=== PATIENT | male | born 1940 | race Caucasian/White ===

== ENCOUNTER 2024-11-26 13:36 | Outpatient (CLI) | payer MEDICARE, SELFPAY ==
--- OUTSIDE RECORDS SUMMARY | 2024-11-26 14:08 | XMS_ITS | Encounter Summary ---
Author Organization [facility] Address [address] [email or web address] [address] Phone Care Team Providers Care Almond Sorter Name Role Phone Abel Lauren MD Unavailable [phone] Raj Regalado MD Unavailable [phone] Brent King MD Primary Care Provider [phone] Libertad Neal MD Unavailable [phone] Hermann Sauceda MD Unavailable Carlie Torres MD Unavailable [phone] Franco Melendez MD Unavailable [phone] Mtiul Gilliam MD Unavailable [phone] Erik Charles MD Unavailable [phone] Encounter Details Date Type Department Care Team (Late st Contact Info) Description 11/17/2022 Orders Only [facility] [address] [place] [address] Scanning, Provider Social History Tobacco Use Types Packs/Day Years Used Date Smoking Tobacco: Former Cigarettes 0.3 30 1 935 - 1965 Cigars Smokeless Tobacco: Never Alcohol Use Standard Drinks/Week Comments No 0 (1 standard drink = 0.6 oz pur e alcohol) Social Connection and Isolat ion Panel [NHANES] Answer Date Recorded In a typical week, how many times do you talk on the phone with family, friends, or neighbors? More than three times a week 08/16/2022 How often do you get togethe r with friends or relatives? More than three times a week 08/16/2022 How often do you attend chur ch or hoahaoism services? Never 08/16/2022 Do you belong to any clubs o r organizations such as jehovah's witness groups, unions, fraternal or athletic groups, or school groups? No 08/16/2022 How often do you attend meet ings of the clubs or organizations you belong to? Never 08/16/2022 Are you , , di vorced, , never , or living with a partner? 08/16/2022 AUDIT-C Answer Date Recorded Q1: How often do you have a drink containing alcohol? Never 08/15/2022 Q2: How many drinks containi ng alcohol do you have on a typical day when you are drinking? Patient does not drink Q3: How often do you have si x or more drinks on one occasion? Never 08/15/2022 Overall Financial Resource Strain (CARDIA) Answe r Date Recorded How hard is it for you to pa y for the very basics like food, housing, medical care, and heating? Not very hard 08/16/2022 PHQ-2 Answer Date Recorded PHQ-2 Total Score (If total score is 3 or more points, staff should administer the PHQ-9) 0 04/24/2022 PRAPARE - Transportation Answer Date Re corded In the past 12 months, has l ack of transportation kept you from medical appointments or from getting medications? No 07/20 In the past 12 months, has l ack of transportation kept you from meetings, work, or from getting things needed for daily living? No 08/16/2022 Personal Safety Answer Date Recorded Have you ever been in or are you currently in a harmful physical or emotional relationship or is someone making you feel afraid or unsafe? Denies 08/15/2022 Sex and Gender Information Value Date Recorded Sex Assigned at Not on file Legal Sex Male 11:17 AM FUNDING SPECIALIST Gender Identity Not on file Sexual Orientation Not on file documented as of this encounter Plan of Treatment Not on file documented as of this encounter Procedures Procedure Name Priority Date/Time Associated Diagnosis Comments SCAN - LABS 11/17/2022 documented in this encounter Results * SCAN - LABS (11/17/2022) Provider Scanning Final Result documented in this encounter Visit Diagnoses Not on filedocumented in this encounter Care Teams Almond Sorter Relationship Specialty Start Date End Date Brent King MD [address] [facility] [address] [place] [address] PCP - General Infectious Diseases 07/20/17 Abel Lauren MD [address] [place], [place] [address] Consulting Physician Endocrinology Diabetes & Metabolism 01/20/17 Raj Regalado MD [address] [place], [place] [address] Consulting Physician Vascular Surgery 04/07/17 Libertad Neal MD [address] [facility] [address], [place] [address] Consulting Physician Nephrology 10/03/19 Hermann Sauceda MD [address] [facility] [address] [place], [place] [address] Consulting Physician Ophthalmology 04/07/20 Carlie Torres MD [address] [place] [address] [address]mel [facility] [address] [place], [place] [address] Referring Physician Preventative Medicine 09/29/20 Franco Melendez MD [address] [facility] [address] [place], [place] [address] Consulting Physician Orthopedic Surgery 08/25/21 Mitul Gilliam MD [address] [place] [address] Consulting Physician Ophthalmology 10/17/21 Erik Chalres MD [address] [facility] [address] [place] [address] Consulting Physician Podiatry 04/26/23 documented as of this encounter
--- OUTSIDE RECORDS SUMMARY | 2024-11-26 14:08 | XMS_ITS | Encounter Summary ---
Author Organization [facility] Address [address] [place] [address] Phone Care Team Providers Care Certified Medication Aide Name Role Phone Abel Lauren MD Unavailable [phone] Hermann [place] MD Unavailable [phone] Raj Regalado MD Unavailable [phone] Hermann Sauceda MD Primary Care Provider Franco Melendez MD Unavailable [phone] Brent King MD Primary Care Provider [phone] Libertad Neal MD Unavailable [phone] Hermann Sauceda MD Unavailable [phone] Carlie Torres MD Unavailable [phone] Franco Melendez MD Unavailable [phone] Mitul Gilliam MD Unavailable [phone] Libertad Neal MD Unavailable [phone] Erik Charles MD Unavailable [phone] Encounter Details Date Type Department Care Team (Late st Contact Info) Description 07/17/2017 Orders Only [facility] [address] [place] [address] Brent King MD [address] [place] [address] Social History Tobacco Use Types Packs/Day Years Used Date Smoking Tobacco: Former Smokeless Tobacco: Never Alcohol Use Standard Drinks/Week Comments No 0 (1 standard drink = 0.6 oz pur e alcohol) Sex and Gender Information Value Date Recorded Sex Assigned at Not on file Legal Sex Male 11:17 AM CRAFT MANAGER Gender Identity Not on file Sexual Orientation Not on file documented as of this encounter Plan of Treatment Not on file documented as of this encounter Procedures Procedure Name Priority Date/Time Associated Diagnosis Comments SCAN - LABS 07/17/2017 10:43 AM CRAFT MANAGER documented in this encounter Results * SCAN - LABS (07/17/2017 10:43 AM CRAFT MANAGER) Brent King MD Final Result documented in this encounter Visit Diagnoses Not on filedocumented in this encounter Additional Health Concerns Infection Onset Date Last Indicated Resolved Time COVID: Suspected 08/14/2022 08/14/2022 08/14/2022 8:58 PM CDT COVID19 08/14/2022 08/14/2022 08/17/2022 2:13 PM CDT COVID: Recovered 08/17/2022 08/17/2022 11/15/2022 3:05 AM CDT documented as of this encounter Care Teams Certified Medication Aide Relationship Specialty Start Date End Date Hermann Sauceda MD [address] [place] [address] PCP - General Ophthalmology 03/21/17 07/19/17 Brent King MD [address] [place] [address] PCP - General Infectious Diseases 07/20/17 Abel Lauren MD [address] [place] [address] Consulting Physician Endocrinology Diabetes & Metabolism 01/20/17 Hermann [place] MD [address] [place] [address] Consulting Physician Nephrology 04/07/17 08/24/21 Raj Regalado MD [address] [place] [address] Consulting Physician Vascular Surgery 04/07/17 Franco Melendez MD [address] [place] [address] Consulting Physician Orthopedic Surgery 08/04/15 2 Libertad Neal MD [address] [facility] [address] [place] [address] Consulting Physician Nephrology 10/03/19 Hermann Sauceda MD [address] [place] [address] Consulting Physician Ophthalmology 04/07/20 Carlie Torres MD [address] [place] [address] [address] [place] [address] Referring Physician Preventative Medicine 09/29/20 Franco Melendez MD [address] [facility] [address] [place] [address] Consulting Physician Orthopedic Surgery 08/25/21 Mitul Gilliam MD [address] [facility] [address] [place] [address] Consulting Physician Ophthalmology 10/17/21 Libertad Neal MD [address] [facility] [address] [place] [address] Consulting Physician Nephrology 10/21/21 10/21/21 Erik Charles MD [address] [facility] [address] [place] [address] Consulting Physician Podiatry 04/26/23 documented as of this encounter
--- OUTSIDE RECORDS SUMMARY | 2024-11-26 14:08 | XMS_ITS | Encounter Summary ---
Author Organization [facility] Address [address] [place] [address] Phone Care Team Providers Care Contact Lens Flashing Puncher Name Role Phone Abel Lauren MD Unavailable [phone] Hermann [place] MD Unavailable [phone] Raj Regalado MD Unavailable [phone] Hermann Sauceda MD Primary Care Provider Franco Melendez MD Unavailable [phone] Brent King MD Primary Care Provider [phone] Libertad Neal MD Unavailable [phone] Hermann Sauceda MD Unavailable [phone] Carlie Torres MD Unavailable [phone] Franco Melendez MD Unavailable [phone] Mitul Gilliam MD Unavailable [phone] Libertad Neal MD Unavailable [phone] Erik Charles MD Unavailable [phone] Encounter Details Date Type Department Care Team (Late st Contact Info) Description 04/03/2017 Orders Only [facility] [address] [place] [address] Brent King MD [address] [place] [address] Social History Tobacco Use Types Packs/Day Years Used Date Smoking Tobacco: Former Smokeless Tobacco: Never Alcohol Use Standard Drinks/Week Comments No 0 (1 standard drink = 0.6 oz pur e alcohol) Sex and Gender Information Value Date Recorded Sex Assigned at Not on file Legal Sex Male 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 NURSE Gender Identity Not on file Sexual Orientation Not on file documented as of this encounter Plan of Treatment Not on file documented as of this encounter Procedures Procedure Name Priority Date/Time Associated Diagnosis Comments SCAN - LABS 04/03/2017 4:09 PM FIELD NURSE documented in this encounter Results * SCAN - LABS (04/03/2017 4:09 PM FIELD NURSE) Brent King MD Final Result documented in this encounter Visit Diagnoses Not on filedocumented in this encounter Additional Health Concerns Infection Onset Date Last Indicated Resolved Time COVID: Suspected 08/14/2022 08/14/2022 08/14/2022 8:58 PM CDT COVID19 08/14/2022 08/14/2022 08/17/2022 2:13 PM CDT COVID: Recovered 08/17/2022 08/17/2022 11/15/2022 3:05 AM CDT documented as of this encounter Care Teams Contact Lens Flashing Puncher Relationship Specialty Start Date End Date Hermann Sauceda MD [address] [place] [address] PCP - General Ophthalmology 03/21/17 07/19/17 Brent King MD [address] [place] [address] PCP - General Infectious Diseases 07/20/17 Abel Lauren MD [address] [place] [address] Consulting Physician Endocrinology Diabetes & Metabolism 01/20/17 Hermann [place] MD [address] [place] [address] Consulting Physician Nephrology 04/07/17 08/24/21 Raj Regalado MD [address] [place] [address] Consulting Physician Vascular Surgery 04/07/17 Franco Melendez MD [address] [place] [address] Consulting Physician Orthopedic Surgery 08/04/15 2 Libertad Neal MD [address] [facility] [address] [place] [address] Consulting Physician Nephrology 10/03/19 Hermann Sauceda MD [address] [place] [address] Consulting Physician Ophthalmology 04/07/20 Carlie Torres MD [address] [place] [address] [address] [place] [address] Referring Physician Preventative Medicine 09/29/20 Franco Melendez MD [address] [facility] [address] [place] [address] Consulting Physician Orthopedic Surgery 08/25/21 Mitul Gilliam MD [address] [facility] [address] [place] [address] Consulting Physician Ophthalmology 10/17/21 Libertad Neal MD [address] [facility] [address] [place] [address] Consulting Physician Nephrology 10/21/21 10/21/21 Erik Charles MD [address] [facility] [address] [place] [address] Consulting Physician Podiatry 04/26/23 documented as of this encounter
--- OUTSIDE RECORDS SUMMARY | 2024-11-26 14:08 | XMS_ITS | Encounter Summary ---
Author Organization [facility] Address [address] [place] [address] Care Team Providers Care Safety Investigator Name Role Phone Abel Lauren MD Unavailable [phone] Raj Regalado MD Unavailable [phone] Brent King MD Primary Care Provider [phone] Libertad Neal MD Unavailable [phone] Hermann Sauceda MD Unavailable [phone] Carlie Torres MD Unavailable [phone] Franco Melendez MD Unavailable [phone] Mitul Gilliam MD Unavailable [phone] Erik Charles MD Unavailable [phone] Encounter Details Date Type Department Care Team (Late st Contact Info) Description 11/03/2024 Telephone [facility] [address] [place] [address] Brent King MD [address] [place] [address] Social History Tobacco Use Types Packs/Day Years Used Date Smoking Tobacco: Former Cigarettes Q uit: 1965 Cigars Smokeless Tobacco: Never Alcohol Use [...] often do you attend chur ch or taoist services? Never 08/16/2022 Do you belong to any clubs o r organizations such as shinto groups, unions, fraternal or athletic groups, or [...] points, staff should administer the PHQ-9) 0 05/02/2024 PRAPARE - Transportation Answer Date Re corded [...] on file Legal Sex Male 11:17 AM SANDWICH HAND Gender Identity Not on file Sexual Orientation Not on file documented as of this encounter Miscellaneous Notes * Telephone Encounter - Kar Del Cid RN - 11/26/2024 9:51 AM CDT Attempted to call pt Na/vm full Cbn#[phone] [facility] Cbn#[phone] daughter Deana See add 11-19-24 phone note * Telephone Encounter - Maxine Chavez RN - 11/25/2024 11:07 AM CDT Left a message for the pt daughter to call us back Also left a message in the note section of the appointment about the information listed below * Telephone Encounter - Maxine Chavez RN - 11/24/2024 9:33 AM CDT Left a message for the pt daughter to call us back * Telephone Encounter - Maxine Chavez RN - 11/18/2024 4:11 PM CDT Left a message for the pt daughter to call us back * Telephone Encounter - Maxine Chavez RN - 11/18/2024 9:21 AM CDT Left a message for the pt daughter to call us back * Telephone Encounter - Maxine Chavez RN - 11/17/2024 10:09 AM CDT Left a message for the pt to call us back Pt has a appointment to see Dr King 12/03/2024 * Telephone Encounter - Maxine Chavez RN - 11/14/2024 9:05 AM CDT Left a message for the pt to to call us back * Telephone Encounter - Maxine Chavez RN - 11/07/2024 11:40 AM CDT Mail box is full Left a message for the pt daughter to call us back or have the pt to call us back * Telephone Encounter - Maxine Chavez RN - 11/04/2024 2:27 PM CDT Mail box was full * Telephone Encounter - Brent King MD - 11/03/2024 8:02 PM CDT Please call patient/. Recent lab results show the following: Lab Results Component Value Date GLUCOSE 232 (H) 10/31/2024 CALCIUM 9.4 10/31/2024 SODIUM 136 10/31/2024 POTASSIUM 4.5 10/31/2024 CO2 24 10/31/2024 CHLORIDE 102 10/31/2024 BUNSER 24 10/31/2024 CREATININE 1.40 (H) 10/31/2024 He was also supposed to get a hemoglobin A1c but I do not see that result pending. Blood sugar is rather high, even for a random blood sugar. Please check with lab about the HbA1C. If he would like a referral to endocrinology in [place], recommend Dr. Law at the [facility]. Ask if he got in to the wound clinic at [facility] or if he wants a referral locally. documented in this encounter Plan of Treatment Not on file documented as of this encounter Visit Diagnoses Diagnosis Type 2 diabetes mellitus with diabetic peripheral angiopathy without gangrene, with long-term current use of insulin (HCC)- Primary documented in this encounter Care Teams Safety Investigator Relationship Specialty Start Date End Date Brent King MD [address] [facility] [address] [place] [address] PCP - General Infectious Diseases 07/20/17 Abel Lauren MD [address] [place] [address] Consulting Physician Endocrinology Diabetes & Metabolism 01/20/17 Raj Regalado MD [address] [place] [address] Consulting Physician Vascular Surgery 04/07/17 Libertad Neal MD [address] [place] [address] Consulting Physician Nephrology 10/03/19 Hermann Sauceda MD [address] [place] [address] Consulting Physician Ophthalmology 04/07/20 Carlie Torres MD [address] [place] [address] [address] Hummel [facility] [address] [place] [address] Referring Physician Preventative Medicine 09/29/20 Franco Melendez MD [address] [place] [address] Consulting Physician Orthopedic Surgery 08/25/21 Mitul Gilliam MD [address] [place] [address] Consulting Physician Ophthalmology 10/17/21 Erik Charles MD [address] [facility] [address] [place], [place] [address] Consulting Physician Podiatry 04/26/23 documented as of this encounter
--- OUTSIDE RECORDS SUMMARY | 2024-11-26 14:08 | XMS_ITS | Clinical Summary ---
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 August. We will get reports of labs done at that time. Continue current medications. Follow-up here in six months. Assessment & Plan (04/07/2020 12:06 PM OVENS SUPERVISOR): His recent hemoglobin A1c in Endocrinology was 6.8% indicating good control of diabetes. Continue current therapy. Keep followups with Dr. Lauren. Assessment & Plan (10/12/2019 2:11 PM CDT): He has not been checking blood sugars regularly, but when he does they generally run between 95 and 110 mg/dL in the morning. His last hemoglobin A1c and Dr. Lauren is office was 6.9%. He continues on glimepiride 4 mg daily and also uses sliding scale insulin 3 or 4 times a day. Continue same and follow-up in six months. Assessment & Plan (04/03/2019 12:22 PM OVENS SUPERVISOR): Blood sugars are in a good range, typically in the low 100 mg%. Continue current oral hypoglycemics. We will get labs from his contract attorney for review. Assessment & Plan (09/26/2018 12:24 PM CDT): He is on sliding scale short-acting insulin to control blood sugars which generally run around 100 mg/dL. His thinks the last hemoglobin A1c was about 6.6. We will request labs from Dr. Lauren. Follow-up here in six months. Assessment & Plan (03/28/2018 11:05 AM OVENS SUPERVISOR): He sees Dr. Lauren for regular diabetic follow-up and care. Apparently labs were not done recently because he had to reschedule his appointment, but hopefully they will be done soon and we will get copies of the results. In general, he does have significant peripheral neuropathy, probably from diabetes. Otherwise he seems fairly stable with respect to his diabetes. Assessment & Plan (09/20/2017 11:21 AM CDT): Last hemoglobin A1c in Dr. Lauren is office was 6.4, representing good control. He has been to the eye doctor recently. We will get a copy of that report, but apparently everything is stable. We can see him back in six months. Assessment & Plan (07/20/2017 12:38 PM OVENS SUPERVISOR): He sees Dr. Lauren for diabetes management. He has numerous complications, not the least of which is a fairly severe peripheral neuropathy in both feet with loss of protective sensation and loss of the left forefoot due to ulceration and infection. He needs special shoes. Fortunately, circulation is preserved as determined by palpable dorsal pedal pulses in both feet. Hypertension associated with type 2 diabetes abel litus 06/21/2003 Overview (08/25/2016): Hypertension Assessment & Plan (10/30/2024 9:16 PM CDT): See [facility] HPI/AP. Assessment & Plan (05/02/2024 12:15 PM OVENS SUPERVISOR): Chronic, present for more than 20 years, currently uncontrolled. Systolic blood pressure when he first got to the room was mildly elevated, normal on my repeat. His reports systolic blood pressure elevations intermittently at home as high as about 168 mm Hg. We increase the lisinopril from 2.5 mg daily to 5 mg daily. She will continue to monitor blood pressure at home and call us if there are consistent elevations. Follow-up routinely in six months, or sooner if needed. Assessment & Plan (11/16/2023 1:44 PM CDT): Chronic, controlled on lisinopril 2.5 mg daily which he is tolerating well. Continue same. Assessment & Plan (04/26/2023 12:31 PM OVENS SUPERVISOR): Blood pressure is in a good range on current therapy. Continue same. Assessment & Plan (10/23/2022 12:54 PM CDT): Blood pressure is in a good range. After his recent hospitalization for acute on chronic kidney failure attributed to dehydration from recent COVID infection, the lisinopril was discontinued. For renal protective effects, we sent in a refill. He will discuss this with Dr. Lauren as well at his upcoming endocrinology appointment. Assessment & Plan (08/28/2022 4:09 PM CDT): BP stable in office today on current therapy. No acute findings on exam. Continue current regimen and low salt diet. Heart healthy exercise encouraged. Assessment & Plan (04/24/2022 11:46 AM OVENS SUPERVISOR): Blood pressure is in a good range on current therapy. Continue same, and follow- up in six months. Assessment & Plan (10/21/2021 2:23 PM CDT): Blood pressure is in a good range on current nonpharmacologic therapy. He denies having chest pain or pressure. Assessment & Plan (04/11/2021 12:04 PM OVENS SUPERVISOR): Systolic blood pressure is somewhat borderline but acceptable. Continue current therapy. Assessment & Plan (10/06/2020 12:16 PM CDT): Blood pressure is in a reasonable range. He is not currently on any medical therapy. Continue same, and follow-up in six months. Assessment & Plan (04/07/2020 12:04 PM OVENS SUPERVISOR): Blood pressure is in a good range on nonpharmacologic therapy. Continue to monitor. Assessment & Plan (10/02/2019 12:00 PM CDT): He has had issues with hypertension in the past, but is not currently taking anything for blood pressure. Blood pressure in the office is in a good range. Continue to monitor. Assessment & Plan (04/03/2019 12:20 PM OVENS SUPERVISOR): Blood pressure is in a good range on no active therapy at this time. Continue to monitor closely. Assessment & Plan (09/26/2018 12:22 PM CDT): His other doctors stopped the Florinef. Blood pressure is in a good range. He will continue to follow up with the nephrologists and diabetes specialists. Assessment & Plan (09/20/2017 11:19 AM CDT): Blood pressure is in a good range. He is tolerating his medications. He gets labs periodically, last time about one month ago which were stable. We will continue current therapy and have him follow up in six months. Hyperlipidemia associated with type 2 diabetes johnny browning 06/21/2003 Overview (08/25/2016): Hyperlipidemia Assessment & Plan (10/30/2024 9:16 PM CDT): See [facility] HPI/AP. Assessment & Plan (05/02/2024 12:14 PM OVENS SUPERVISOR): Chronic, present for more than 20 years, controlled on pravastatin 40 mg daily. Labs from his contract attorney including LDL are scanned into his chart. Continue same. Assessment & Plan (12/04/2023 4:38 PM CDT): Chronic, controlled on pravastatin 40 mg daily. He gets periodic labs in his contract attorney office which I independently review and interpret. These are scanned to his chart. Continue same. Assessment & Plan (04/26/2023 12:30 PM OVENS SUPERVISOR): He takes pravastatin, tolerating well. Continue same. Assessment & Plan (10/23/2022 12:53 PM CDT): He is tolerating pravastatin. Labs are monitored by Dr. Lauren and scanned into his chart for review. Assessment & Plan (04/24/2022 11:46 AM OVENS SUPERVISOR): He is on generic Pravachol, tolerating well. Continue same. Assessment & Plan (10/21/2021 2:22 PM CDT): He is on generic Pravachol, tolerating well. He gets labs checked at least once a year in his contract attorney office. These are scanned to his chart. Assessment & Plan (10/17/2020 9:03 AM CDT): Continue pravastatin. He gets his labs checked by Dr. Lauren in endocrinology. We will request the most recent results. Assessment & Plan (04/07/2020 12:04 PM OVENS SUPERVISOR): His most recent cholesterol profile looks reasonably favorable on his current Pravachol. Continue same. Assessment & Plan (10/12/2019 2:10 PM CDT): He remains on pravastatin, tolerating well. The lipid panel in Dr. Lauren's office about two months ago shows fairly good control. Continue same. Assessment & Plan (04/03/2019 12:20 PM OVENS SUPERVISOR): He is on pravastatin, tolerating well. He had labs done in Endocrinology and Nephrology. We will request those results for review. Continue current therapy. Assessment & Plan (03/28/2018 11:03 AM OVENS SUPERVISOR): He is on pravastatin and tolerating it well. We will review any available recent labs, typically drawn by either Nephrology or endocrinology. Assessment & Plan (09/20/2017 11:19 AM CDT): He takes pravastatin. He seems to be tolerating it just fine. We will check cholesterol profile periodically. Resolved Problems Problem Noted Date Diagnosed Date Resolved Date Hospital discharge follow-up 08/25/2022 05/02/2024 Overview (05/02/2024): Saw Judy L4 follow-up of acute kidney injury from dehydration. Assessment & Plan (08/29/2022 8:40 AM CDT): Hospital course as noted above for LAILA and dehydration. Medications reconciled in office today. breif review of chronic conditions as noted below. Acute kidney injury 08/15/2022 05/02/20 Overview (05/02/2024): Acute on chronic, see hospital records. COVID-19 08/07/2022 03/03/2023 Overview (03/03/2023): Details lacking. Acute osteomyelitis of ankle or foot 11/15/2020 04/23/2022 Overview (04/23/2022): [facility], details lacking. 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 Assessment & Plan (04/16/2020 11:57 AM OVENS SUPERVISOR): The ulcerations on his right foot have healed. 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 These are being attended to by the [facility] and seem to be doing pretty well with good epithelialization/scar in the large ulcer on the arch of the foot, and a minimal persistent ulcer on the inferior aspect of the TMA. He will keep followups with Wound Center. Assessment & Plan (10/02/2019 12:07 PM CDT): At some point in June, he developed ulcerations of his right foot plantar surface underlying several metatarsal phalangeal joints. It may have been related to some thermal injury. The exact mechanism is unclear. It is listed in other notes as due to pressure injury, and he does have a large callus in this area. He has poor protective sensation, essentially anesthesia to monofilament. He is getting wound care at [facility] in [place]. He was on antibiotics for about 10 days during the latter part of June. He has been getting local wound care and bandage changes. He denies having fever or chills. Exam shows several ulcerated areas varying in size, but less than 1 cm each, with some dry bloody discharge noted, but no purulent areas. There is no significant tenderness or warmth. His tetanus status is up-to-date. He will keep his follow ups with wound care. Personal history of diabetic foot ulcer 04/05/2019 10/02/2019 Overview (10/02/2019): Both feet, see office notes and wound care notes ([facility]). Closed fracture of multiple ribs of left side with routine healing 12/26/2016 03/23/2017 Acute cholecystitis 05/22/2016 03/23/20 17 Overview (08/25/2016): Acute cholecystitis Encounters Date Type Department Care Team Description 11/19/2024 Telephone [facility] [address] [place] [address] Brent King MD 11/03/2024 Telephone [facility] [address] [place] [address] Brent King MD 11/03/2024 Results [facility] [address] [place] [address] Brent King MD Basic metabolic panel, eGFR 10/31/2024 1:40 PM CDT Lab [facility] [address] [place] [address] Hypertension associated with type 2 diabetes mellitus (HCC) 10/31/2024 1:00 PM CDT Office Visit [facility] [address] [place] [address] Brent King MD Type 2 diabetes mellitus with diabetic peripheral angiopathy without gangrene, with long-term current use of insulin (HCC) (Primary Dx); Pressure injury of left foot, stage 3 (HCC); Amputation stump complication (HCC); Hyperlipidemia associated with type 2 diabetes mellitus (HCC); Stage 3a chronic kidney disease (HCC); Hypertension associated with type 2 diabetes mellitus (HCC); Nevus of cheek; Need for hepatitis B screening test; Diabetic ulcer of other part of right foot associated with type 2 diabetes mellitus, with fat layer exposed (HCC); Abrasion of skin from Last 3 Months Immunizations Immunization Administration Dates Next Due H1N1 Inj 05/06/2014 Influenza, Quadrivalent, Hig h Dose, Preservative Free, Intrr 03/20/2022,02/11/2021,02/21/2020 Influenza, Quadrivalent, Spl it, Preservative Free, Intradermal 05/10/2011 Influenza, Trivalent, High D ose, Split, Preservative Free, Intramuscular 02/08/2024,03/17/2020,03/17/2019,01/28,02/18/2018,03/23/2017,05/18/2016 ,03/01/2016,03/11/2015,05/06/2014 Influenza, Trivalent, IM (MDV) 05/18/2016 Pfizer SARS-CoV-2 Monovalent Vaccination (12+ Yrs) PURPLE 05/28/2021,10/23/2020,10/02/2020 Pneumococcal Conjugate PCV 13 04/26/2015 Pneumococcal Polysaccharide PPV23 04/07/2020, Tdap 09/20/2016 ZOSTER LIVE 05/21/2014 ZOSTER Recombinant 07/16/2020,04/30/2020 Surgical History Surgery Date Site/Laterality Comments LAPAROSCOPIC CHOLECYSTECTOMY 05/21/2016 - 05/20/2017 Cholecystectomy, laparoscopic ANGIOPLASTY 05/21/2015 - 05/20/2016 Left Left anterior tibial artery, Dr. Raj Regalado. FOOT SURGERY Left Multiple left foot surgeries /amputation of toes & hallux HM DIABETES EYE EXAM 08/31/2017 Janeen [place]/Dr. Sauceda. 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 CATARACT EXTRACTION 05/21/2009 - 05/20/2010 Left Complicated by central opacity and vision loss, details lacking. ANKLE SURGERY 06/11/2018 Left Tendon clipped in back of calf/ankle to improve position of toe, Dr. Ward, [facility]. DIABETES EYE EXAM 04/02/[address] Sauceda, see scanned report. DIABETES EYE EXAM 09/22/2020 Bilateral Bialteral proliferative diabetic retinopathy without macular edema, Dr. Sauceda, [facility]. DIABETES EYE EXAM 03/23/2021 Scanned diabetic eye exam, positive findings, Dr. Hermann Sauceda, [facility]. DIABETES EYE EXAM 09/21/2021 Ophthalmology office note, Dr. Sauceda. Regressed proliferative retinopathy. DIABETES EYE EXAM 11/07/2023 Bilateral Stable proliferative diabetic retinopathy, involutional mature cataract, OS. Dr. Peace, [facility]. Medical History Medical History Date Comments Diabetes mellitus (HCC) Diabetes mellitus; Comments: GDS 05/31/2016 - Hypercholesterolemia High choles terol; Comments: GDS 05/31/2016 - Hypertension Hypertension Type 2 diabetes mellitus (HCC) 2005 D iabetes type 2; Comments: ECS 06/21/2016 - Acute cholecystitis 05/22/2016 Acute cholec ystitis Closed fracture of multiple ribs of left side with routine healing 12/26/2016 Diabetic neuropathy ([facility]) Chronic kidney disease Diabetic eye exam ([facility]) 08/31/2017 See Scan [facility] Report, Janeen [place]/Dr. Sauceda. Chicken pox 1948 Personal history of diabetic foot ulcer 04/05/20 19 Both feet, see office notes and wound care notes ([facility]). Diabetic ulcer of right foot associated with type 2 diabetes mellitus, with fat layer exposed ([facility]) 06/21/2019 Right foot ulcers have heale d but he has erosions of the left foot being cared for at the [facility] in [place]. Acute osteomyelitis of ankle or foot ([facility]) 11/15/2020 [facility], detail s lacking. Covid-19 08/07/2022 Details lacking. Hospital discharge follow-up 08/25/2022 Saw Judy Morris follow-up of acute on chronic kidney injury from dehydration. Acute kidney injury 08/15/2022 Acute on chr onic, see hospital records. Family History Medical History Relation Name Comments Diabetes Brother 2 Diabetes mellit us; Cause of : Diabetes mellitus Coronary artery disease Father Filippo nary artery disease; Heart attack Father Myocardial infa rction; Stroke Father Stroke; Diabetes Mother Diabetes mellit us; Diabetes type II Mother Diabetes me llitus type 2; Cancer Sister 2 Cancer, unknown ; Cause of : Cancer, unknown Relation Name Status Comments Brother 1 Brother 2 Father Mother Sister 1 Sister 2 Social History Tobacco Use Types Packs/Day Years Used Date Smoking Tobacco: Former Cigarettes Q uit: 1965 Cigars Smokeless Tobacco: Never Tobacco Cessation:Counseling Given: Not Answered Alcohol Use Standard Drinks/Week Comments No 0 [...] often do you attend chur ch or sabianist services? Never 08/16/2022 Do you belong to any clubs o r organizations such as alevism groups, unions, fraternal or athletic groups, or [...] on file Legal Sex Male 11:17 AM OVENS SUPERVISOR Gender Identity Not on file Sexual Orientation Not on file Obstetrics History Last Filed Vital Signs Vital Sign Reading Time Taken Comments Blood Pressure 118/50 10/31/2024 12:52 PM CDT Pulse 69 10/31/2024 12:52 PM CDT Temperature 36.7 C (98 F) 10/31/2024 12:52 PM CDT Respiratory Rate 16 10/31/2024 12:52 PM CDT Oxygen Saturation 97% 10/31/2024 12:52 PM CDT Inhaled Oxygen Concentration - - Weight 77.1 kg (170 lb) 10/31/2024 12:52 PM CDT Height 157.5 cm (5' 2.01) 10/31/2024 12:52 PM C DT Body Mass Index 31.09 10/31/2024 12:52 PM CDT Plan of Treatment Health Maintenance Due Date Last Done Comments Hepatitis B Screening 1958 Lipid Panel 09/08/2021 09/08/2020 Albumin Creatinine Ratio, Urine 11/18/2023 , 10/02/2019 Hemoglobin A1C 07/12/2024 01/10/2024, 01/0 12/2023, 02/23/2023, Additional history exists Covid-19 Vaccine (2023-2 5 season) 2024 02/08/2024, 06/29/2023, 04/05/2022, Additional history exists Dilated Eye Exam 11/06/2024 11/07/2023, 08/2021, 03/23/2021, Additional history exists Influenza Vaccine (#1) 2025 , 03/20/2022, 02/11/2021, Additional history exists Depression Screening 05/02/2025 05/02/2024, 04/26/2023, 04/24/2022, Additional history exists Fall Risk Assessment 05/02/2025 05/02/2024, 04/26/2023, 08/17/2022, Additional history exists Foot Exam 05/02/2025 05/02/2024, 11/2022, 04/24/2022, Additional history exists Well Visit 65+ 05/02/2025 05/02/2024, 11/2022, 04/24/2022, Additional history exists eGFR 10/31/2025 10/31/2024, 07/21, 08/16/2022, Additional history exists DTaP/Tdap/Td Vaccine (2 - Td or Tdap) 09/20/2026 09/20/2016 Abdominal Aortic Aneurysm (A AA) Screen Completed 01/21/2017, 05/22/2016 Pneumococcal vaccine 65+ Completed 020, 04/26/2015, 05/10/2011 Zoster Vaccine Completed 07/16/2020, 04/20, 05/21/2014 Procedures Procedure Name Priority Date/Time Associated Diagnosis Comments EGFR Routine 10/31/2024 1:38 PM CDT Hypertension associated with type 2 diabetes mellitus (HCC) BASIC METABOLIC PANEL Routine 10/31/2024 1:38 PM CDT Hypertension associated with type 2 diabetes mellitus (HCC) HM HEMOGLOBIN A1C Routine 01/10/2024 DIABETES EYE EXAM Routine 11/07/2023 HM ALBUMIN CREATININE RATIO, URINE Routine 11/17/2022 12:00 PM CDT LIPID PANEL Routine 09/08/2020 12:[address] ABDOMEN PELVIS W CONTRAST Routine 01/21/2017 7:48 PM CDT from Last 3 Months or Most Recently Relevant to Health Maintenance Results * (ABNORMAL) eGFR (10/31/2024 1:38 PM CDT) Pathologist [facility] eGFR 50(L) >=60 mL/min/1. 73 m2 Comment: Interpretive Data Reference Interval Normal >/= 90 mL/min/1.73m2 Mildly decreased* 60 - 89 mL/min/1.73m2 Mildly to moderately decreased 45 - 59 mL/min/1.73m2 Moderately to severely decreased 30 - 44 mL/min/1.73m2 Severely decreased 15 - 29 mL/min/1.73m2 Kidney Failure < 15 mL/min/1.73m2 *Relative to young adult level Estimated glomerular filtration rate is determined by the 2020 CKD-EPI equation recommended by the National Kidney Foundation (A Unifying Approach to GFR Estimation: Recommendations of the NKF-ASK Task Force on Reassessing the Inclusion of Race in Diagnosing Kidney Disease, JASN 2020). The CKD-EPI equation should not be used for patients with unstable renal function and has not been validated in children and those over 70. Current interpretive data was last reviewed 2021. Testing performed by: [address] [address] Blood 10/31/2024 1:38 PM CDT 10/31/2024 8:43 PM CDT Brent King MD LAB BLOOD ORDERABLES Final Re sult [address] Department [place] [address] * (ABNORMAL) Basic metabolic panel (10/31/2024 1:38 PM CDT) [facility] Sodium 136 135 - 145 mmol/L Comment:Testing performed by : [address] [address] Potassium, pl 4.5 3.3 - 4.9 mmol/L JALEN Comment:Testing performed by : [address] [address] Chloride 102 97 - 110 mmol/L JALEN Comment:Testing performed by : [address] [address] CO2 24 22 - 32 mmol/L JALEN Comment:Testing performed by : [address] [address] Anion gap 10 2 - 15 mmol/L JALNE Comment:Testing performed by : [address] [address] BUN 24 6 - 25 mg/dL JALEN Comment:Testing performed by : [address] [address] Creatinine 1.40(H) 0.80 - 1.30 mg/dL JALEN Comment:Testing performed by : [facility], [address] [place] [address]., [address] Glucose 232(H) 70 - 199 mg/dL JALEN Comment: Interpretive Data Fasting glucose >/= 126 mg/dl is diagnostic for diabetes. Fasting is defined as no caloric intake for at least 8 hours. Fasting glucose between 100 mg/dl to 125 mg/dl is diagnostic of prediabetes. In a patient with classic symptoms of hyperglycemia or hyperglycemic crisis, a random glucose >/= 200 mg/dl is diagnostic for diabetes. In the absence of unequivocal hyperglycemia, results should be confirmed by repeat testing. The classification and Diagnosis of Diabetes Diabetes Care 202; 46: S19-S40. Current interpretive data was last revised 2022. Testing performed by: [address] [address] Calcium 9.4 8.5 - 10.3 mg/dL JALEN Comment:Testing performed by : [address] [address] Blood 10/31/2024 1:38 PM CDT 10/31/2024 8:05 PM CDT us Brent King MD LAB BLOOD ORDERABLES Final Re sult [address] Department of Laboratories [place], [place] [id number] * (ABNORMAL) HM HEMOGLOBIN A1C (01/10/2024) SCRIBED Hemoglobin A1c 7.9(A) 4.0 - 5.7 % Impressions Brent King MD - 01/10/2024 Dr. Laurens office labs, [facility]. Narrative Brent King MD - 01/10/2024 See scanned report us Abel Lauren MD HEALTH MAINTENANCE Final Result * HM DIABETES EYE EXAM (11/07/2023) SCRIBED DIABETIC DILATED EYE EXAM Abnormal Impressions Brent King MD - 11/07/2023 Stable/regressed bilateral diabetic retinopathy, mature involutional cataract OS. Narrative Brent King MD - 11/07/2023 See scanned report us Hermann Sauceda MD HEALTH MAINTENANCE Fin al Result * ALBUMIN CREATININE RATIO, URINE (11/17/2022 12:00 PM CDT) SCRIBED ALBUMIN CREATININE RATIO, URINE 17 0 - 29 EXTERNAL LAB 11/17/2022 12:0 0 PM CDT Impressions EXTERNAL LAB - 11/17/2022 12:[address] Lauren office labs. Narrative EXTERNAL LAB - 11/17/2022 12:00 PM CDT See Scanned report us Abel Lauren MD HEALTH MAINTENANCE Final Result EXTERNAL LAB * Lipid panel (09/08/2020 12:00 AM CDT) SCRIBED Cholesterol, Total 123 0 - 200 EXTERNAL LAB SCRIBED HDL 43 30 - 85 EXTERNAL LAB SCRIBED LDL 53 0 - 130 EXTERNAL LAB SCRIBED Triglycerides 137 0 - 150 EXTERNAL LAB Blood specimen (specimen) 09/08/2020 Narrative EXTERNAL LAB - 09/08/2020 12:[address] Lauren [facility] (see scanned report) us Jacinda Epstein MD LAB BLOOD ORDERABLES Bettye l Result EXTERNAL LAB * CT Abdomen Pelvis W Contrast (01/21/2017 7:48 PM CDT) Anatomical Region Laterality Modality Body N/A Computed Tomogra phy 01/21/2017 7:48 PM CDT Narrative 01/21/2017 7:[address] ABD/PEL W IV ONLY Acc#: [id number] DATE OF EXAM: Jan [address] ABD/PEL W IV ONLY HISTORY: Abdominal Pain. Bilateral upper quadrant abdominal pain. TECHNIQUE: Helically acquired axial images were obtained from the dome of the diaphragm to the pubic symphysis. CONTRAST: 100 mL Optiray 320, COMPARISON: 05/22/2016 FINDINGS: The patient is now status post cholecystectomy. Mild fullness of the adrenal glands remains present without evidence of discrete nodule. The liver, spleen, pancreas and kidneys are normal. The small and large bowel are nondilated. The appendix is normal. There is no evidence of ascites or adenopathy. Diffuse vascular calcification is present. The pelvic contents are normal. The lung bases are clear. HNHIMPRESSION: [id number] CHOLECYSTECTOMY. [id number] BILATERAL ADRENAL FULLNESS WITH NO EVIDENCE OF DISCRETE NODULE, LESS PROMINENT THAN ON THE COMPARISON STUDY. 3.[id number] CALCIFICATION. 4.X09NO EVIDENCE OF ACUTE INTRA-ABDOMINAL PROCESS. Electronically signed by: Clovis Fowler M.D. Interpreting Physician: DR KADE GONZALEZ M.D. Read on: Jan 21 2017 3:04P Transcribed by: [facility] On: Jan 21 2017 3:02P Approved Electronically by: LISA Carlson, DR BRAUN on: Jan 21 2017 3:02P Ordering DR: MILAGROS PATEL Attending DR: DR HARI LE Attending: DR HARI LE Requesting: MILAGROS PATEL Requesting Fax: -- Attending Fax: -- Attending ID: [id number] Requesting ID: [id number] Report To 1 ID: [id number] Report To 1 Name: DR HARI LE Report To 1 FAX: -- NextGen Order #: Procedure Note Miscellaneous, Not In File / Provider, MD Jacinda - 01/21/2017 CT ABD/PEL W IV ONLY Acc#: [id number] DATE OF EXAM: Jan [address] ABD/PEL W IV ONLY HISTORY: Abdominal Pain. Bilateral upper quadrant abdominal pain. TECHNIQUE: Helically acquired axial images were obtained from the dome of the diaphragm to the pubic symphysis. CONTRAST: 100 mL Optiray 320, COMPARISON: 05/22/2016 FINDINGS: The patient is now status post cholecystectomy. Mild fullness of the adrenal glands remains present without evidence of discrete nodule. The liver, spleen, pancreas and kidneys are normal. The small and large bowel are nondilated. The appendix is normal. There is no evidence of ascites or adenopathy. Diffuse vascular calcification is present. The pelvic contents are normal. The lung bases are clear. HNHIMPRESSION: N1.M91LOVPHLNE CHOLECYSTECTOMY. 2.C90NHYF BILATERAL ADRENAL FULLNESS WITH NO EVIDENCE OF DISCRETE NODULE, LESS PROMINENT THAN ON THE COMPARISON STUDY. 3.[id number] CALCIFICATION. 4.X09NO EVIDENCE OF ACUTE INTRA-ABDOMINAL PROCESS. Electronically signed by: Clovis Fowler M.D. Interpreting Physician: DR KADE GONZALEZ M.D. Read on: Jan 21 2017 3:04P Transcribed by: [facility] On: Jan 21 2017 3:02P Approved Electronically by: LISA Carlson, DR BRAUN on: Jan 21 2017 3:02P Ordering DR: MILAGROS PATEL Attending DR: DR HARI LE Attending: DR HARI LE Requesting: MILAGROS PATEL Requesting Fax: -- Attending Fax: -- Attending ID: [id number] Requesting ID: [id number] Report To 1 ID: [id number] Report To 1 Name: DR HARI LE Report To 1 FAX: -- NextGen Order #: Milagros TUBBS IMG CT PROCEDURES Final Result from Last 3 Months or Most Recently Relevant to Health Maintenance Insurance [facility] MEDICARE [facility] Address: [address] [address] [place] [address] MEDICARE ADVANTAGE [facility] MEDICARE Address: [address] [address] [place] [address] MEDICARE AD[facility]AGE [facility] MEDICARE Address: [address] [address] [place] [id number] MEDICARE AD[facility]ANTAGE [facility] MEDICARE Address: [address] [address] Care Teams Cleaning And Maintenance Worker Relationship Specialty Start Date End Date Brent King MD [address] [place] [address] PCP - General Infectious Diseases 07/20/17 Abel Lauren MD [address] [place] [address] Consulting Physician Endocrinology Diabetes & Metabolism 01/20/17 Raj Regalado MD [address] [place] [address] Consulting Physician Vascular Surgery 04/07/17 Libertad Neal MD [address] [facility] [address] [place] [address] Consulting Physician Nephrology 10/03/19 Hermann Sauceda MD [address] [facility] [address] [place] [address] Consulting Physician Ophthalmology 04/07/20 Carlie Torres MD [address] [place] [address] DR AANST[address]IO [address] [place] [address] Referring Physician Preventative Medicine 09/29/20 Franco Melendez MD [address] [facility] [address] [place] [address] Consulting Physician Orthopedic Surgery 08/25/21 Mitul Gilliam MD [address] [place] [address] Consulting Physician Ophthalmology 10/17/21 Erik Charles MD [address] [facility] [address] [place] [address] Consulting Physician Podiatry 04/26/23
--- OUTSIDE RECORDS SUMMARY | 2024-11-26 14:08 | XMS_ITS | Encounter Summary ---
Author Organization [facility] Healthcare Address [address] [place] [address] Care Team Providers Care Sampler And Test Preparer Name Role Phone Abel Lauren MD Unavailable [phone] Raj Regalado MD Unavailable [phone] Brent King MD Primary Care Provider [phone] Libertad Neal MD Unavailable [phone] Hermann Sauceda MD Unavailable Carlie Torres MD Unavailable Franco Melendez MD Unavailable [phone] Mitul Gilliam MD Unavailable [phone] Erik Charles MD Unavailable [phone] Encounter Details Date Type Department Care Team (Late st Contact Info) Description 11/03/2024 Results Follow-Up [facility] Medical Group [facility] [address] [place] [address] Brent King MD [address] [place] [address] Basic metabolic panel, eGFR Social History Tobacco Use Types Packs/Day Years [...] often do you attend chur ch or anglican services? 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 Gender Identity Not on file Sexual Orientation Not on file documented as of this encounter Plan of Treatment Not on file documented as of this encounter Visit Diagnoses Not on filedocumented in this encounter Care Teams Sampler And Test Preparer Relationship Specialty Start Date End Date Brent King MD [address] [place] [address] PCP - General Infectious Diseases 07/20/17 Abel Lauren MD [address] [place] [address] Consulting Physician Endocrinology Diabetes & Metabolism 01/20/17 Raj Regalado MD [address] [place] [address] Consulting Physician Vascular Surgery 04/07/17 Libertad Neal MD [address] [place] [address] Consulting Physician Nephrology 10/03/19 Hermann Sauceda MD [address] [place] [address] Consulting Physician Ophthalmology 04/07/20 Carlie Torres MD [address] [place] [address] [address]ST[address] [place] [address] Referring Physician Preventative Medicine 09/29/20 Franco Melendez MD [address] [place] [address] Consulting Physician Orthopedic Surgery 08/25/21 Mitul Gilliam MD [address] [place] [address] Consulting Physician Ophthalmology 10/17/21 Erik Charles MD [address] [facility] [address] [place] [address] Consulting Physician Podiatry 04/26/23 documented as of this encounter
--- OUTSIDE RECORDS SUMMARY | 2024-11-26 14:08 | XMS_ITS | Encounter Summary ---
Author Organization [facility] Healthcare Address [address] [place] [address] Care Team Providers Care Claims Specialist Name Role Phone Abel Lauren MD Unavailable [phone] Raj Regalado MD Unavailable [phone] Brent King MD Primary Care Provider [phone] Libertad Neal MD Unavailable [phone] Hermann Sauceda MD Unavailable [phone] Carlie Torres MD Unavailable [phone] Franco Melendez MD Unavailable [phone] Mitul Gilliam MD Unavailable [phone] Erik Charles MD Unavailable [phone] Encounter Details Date Type Department Care Team (Late st Contact Info) Description 01/10/2024 Orders Only [facility] Medical Group [facility] [address] [place] [address] Scanning, Provider Social History Tobacco [...] any clubs o r organizations such as anglican groups, unions, fraternal or athletic groups, or [...] points, staff should administer the PHQ-9) 0 04/26/2023 PRAPARE - Transportation Answer Date Re corded [...] on file 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 Gender Identity Not on file Sexual Orientation Not on file documented as of this encounter Plan of Treatment Not on file documented as of this encounter Procedures Procedure Name Priority Date/Time Associated Diagnosis Comments SCAN - LABS 01/10/2024 documented in this encounter Results * SCAN - LABS (01/10/2024) us Provider Scanning Final Result documented in this encounter Visit Diagnoses Not on filedocumented in this encounter Care Teams Claims Specialist Relationship Specialty Start Date End Date Brent King MD [address] [place] [address] PCP - General Infectious Diseases 07/20/17 Abel Lauren MD [address] [place] [address] Consulting Physician Endocrinology Diabetes & Metabolism 01/20/17 Raj Regalado MD [address] [place] [address] Consulting Physician Vascular Surgery 04/07/17 Libertad Neal MD [address] [place] [address] Consulting Physician Nephrology 10/03/19 Hermann Sauceda MD [address] [facility] [address] [place] [address] Consulting Physician Ophthalmology 04/07/20 Carlie Torres MD [address] [place] [address] [address] ANAST[address] Hummel [facility] [address] [place] [address] Referring Physician Preventative Medicine 09/29/20 Franco Melendez MD [address] [place] [address] Consulting Physician Orthopedic Surgery 08/25/21 Mitul Gilliam MD [address] [facility] [address] [place] [address] Consulting Physician Ophthalmology 10/17/21 Erik Charles MD [address] [facility] [address] [place] [address] Consulting Physician Podiatry 04/26/23 documented as of this encounter
--- OUTSIDE RECORDS SUMMARY | 2024-11-26 14:08 | XMS_ITS | Encounter Summary ---
Author Organization [facility] Address [address] [place] [address] Phone Care Team Providers Care Core Sticker Name Role Phone Brent King MD Primary Care Provider [phone] Abel Lauren MD Unavailable [phone] Hermann Wellington MD Unavailable [phone] Raj Regalado MD Unavailable [phone] Hermann Sauceda MD Primary Care Provider Franco Melendez MD Unavailable [phone] Brent King MD Primary Care Provider [phone] Libertad Neal MD Unavailable [phone] Hermann Sauceda MD Unavailable [phone] Carlie Torres MD Unavailable [phone] Franco Melendez MD Unavailable [phone] Mitul Gilliam MD Unavailable [phone] Libertad Neal MD Unavailable [phone] Erik Charles MD Unavailable [phone] Encounter Details Date Type Department Care Team (Late st Contact Info) Description 02/20/2017 Orders Only [facility] [address] [place] [address] Brent King MD [address] [place] [address] Examination of eyes and vision (Primary Dx) Social History Tobacco Use Types Packs/Day Years Used Date Smoking Tobacco: Former Smokeless Tobacco: Never Alcohol Use Standard Drinks/Week Comments No 0 (1 standard drink = 0.6 oz pur e alcohol) Sex and Gender Information Value Date Recorded Sex Assigned at Not on file 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 Gender Identity Not on file Sexual Orientation Not on file documented as of this encounter Plan of Treatment Not on file documented as of this encounter Visit Diagnoses Diagnosis Examination of eyes and vision- Primary documented in this encounter Additional Health Concerns Infection Onset Date Last Indicated Resolved Time COVID: Suspected 08/14/2022 08/14/2022 08/14/2022 8:58 PM CDT COVID19 08/14/2022 08/14/2022 08/17/2022 2:13 PM CDT COVID: Recovered 08/17/2022 08/17/2022 11/15/2022 3:05 AM CDT documented as of this encounter Care Teams Core Sticker Relationship Specialty Start Date End Date Brent King MD [address] [place] [address] PCP - General 12/26/16 03/20/17 eHrmann Sauceda MD [address] [place] [address] PCP - General Ophthalmology 03/21/17 07/19/17 Brent King MD [address] [place] [address] PCP - General Infectious Diseases 07/20/17 Abel Lauren MD [address] [place] [address] Consulting Physician Endocrinology Diabetes & Metabolism 01/20/17 Hermann [place] MD [address] [place] [address] Consulting Physician Nephrology 04/07/17 08/24/21 Raj Regalado MD [address] [place] [address] Consulting Physician Vascular Surgery 04/07/17 Franco Melendez MD [address] [place] [address] Consulting Physician Orthopedic Surgery 08/04/15 2 Libertad Neal MD [address] [place] [address] Consulting Physician Nephrology 10/03/19 Hermann Sauceda MD [address] [place] [address] Consulting Physician Ophthalmology 04/07/20 Carlie Torres MD [address] [place] [address] [address] [place] [address] Referring Physician Preventative Medicine 09/29/20 Franco Melendez MD [address] [place] [address] Consulting Physician Orthopedic Surgery 08/25/21 Mitul Gilliam MD [address] [place] [address] Consulting Physician Ophthalmology 10/17/21 Libertad Neal MD [address] [facility] [address] [place] [address] Consulting Physician Nephrology 10/21/21 10/21/21 Erik Charles MD [address] [facility] [address] [place] [address] Consulting Physician Podiatry 04/26/23 documented as of this encounter
--- OUTSIDE RECORDS SUMMARY | 2024-11-26 14:08 | XMS_ITS | Referral Summary ---
Author Organization [facility] Address [address] [place] [address] Care Team Providers Care Material Controller Name Role Phone Abel Lauren MD Unavailable [phone] Raj Regalado MD Unavailable [phone] Brent King MD Primary Care Provider [phone] Libertad Neal MD Unavailable [phone] Hermann Sauceda MD Unavailable Carlie Torres MD Unavailable [phone] Franco Melendez MD Unavailable [phone] Mitul Gilliam MD Unavailable [phone] Erik Charles MD Unavailable [phone] Encounters Date Type Department Care Team Description 11/19/2024 Telephone [facility] [address] [place] [address] Brent King MD 11/03/2024 Telephone [facility] [address] [place] [address] Brent King MD 11/03/2024 Results [facility] [address] [place] [address] Brent King MD Basic metabolic panel, eGFR 10/31/2024 1:40 PM CDT Lab [facility] [address] [place] [address] Hypertension associated with type 2 diabetes mellitus (HCC) 10/31/2024 1:00 PM CDT Office Visit [facility] [address] [place] [address] Brent King MD Type 2 diabetes mellitus [...] Abrasion of skin from Last 3 Months Allergies Active Allergy Reactions Criticality Noted Date [...] note were not included. See Abridge HPI/AP. Abrasion of skin 10/31/2024 Assessment & Plan (11/07/2024 10:39 PM CDT): Images from the original note were not included. See [facility]bridge HPI/AP. Adult hypothyroidism 05/05/2024 Lower extremity edema 07/11/2021 Assessment & Plan (07/19/2021 12:13 PM REPLENISHER): Patient returns for follow up on RLE [...] needed. Assessment & Plan (07/11/2021 12:15 PM REPLENISHER): Patient presents with pitting RLE edema that [...] podiatry. Assessment & Plan (05/12/2023 2:26 PM REPLENISHER): He is seeing a commercial hvac service technician in [place]. He recently had nail debridement. He wore [...] follows up with the [facility] in [place] once a week. His changes the bandages every day at home. They will keep their follow ups in the Wound Center. Tinea unguium 10/21/2020 Overview (04/23/2022): [facility], details lacking. Secondary hyperparathyroidism 11/19/2019 Overview (03/03/2023): Diagnosis entered at [facility]. Assessment & Plan (11/16/2023 1:46 PM CDT): Chronic, controlled. This is monitored in endocrinology and by Nephrology, Dr. Wellington. Assessment & Plan (04/26/2023 12:31 PM REPLENISHER): This is monitored by his metal lather, Dr. Lauren. 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 Assessment & Plan (11/16/2023 1:46 PM CDT): Chronic, resolved. His commercial hvac service technician applied a contact cast. The left foot medial TMA stump still exhibits some chronic lichenified and fissured skin thickening, but no ulceration. Pulses are not detected in the feet, but clinical perfusion is normal. We will see him back in six months. Assessment & Plan (04/26/2023 12:31 PM REPLENISHER): The small diabetic foot ulcer on the left foot medial distal transmetatarsal amputation is healing well under the care of his commercial hvac service technician. Assessment & Plan (01/22/2022 2:42 PM CDT): Wound center note, [facility], 10/19/2021. Assessment & Plan (11/11/2021 8:14 AM CDT): The wound on his left foot amputation stump is described elsewhere. It appears to be stable or improving with care at the [facility]ound [facility] in [place]. Assessment & Plan (10/06/2020 12:14 PM CDT): The left foot TMA stump is bandaged, just changed yesterday. We did not remove it at this time. There is a little staining of the bandage on the inferior/plantar surface. He will keep his follow ups with the Wound Center. Assessment & Plan (04/07/2020 12:06 PM REPLENISHER): As mentioned elsewhere, the ulcerations on the [...] (05/02/2024): Nuclear stress test on 08/15/2022 at [facility]: Normal myocardial perfusion study. No scintigraphic evidence of myocardial ischemia. Normal left ventricular ejection fraction of 66 % poststress. Normal wall motion. Assessment & Plan (05/02/2024 12:16 PM REPLENISHER): Chronic, present for five or more years, [...] same. Assessment & Plan (04/11/2021 12:04 PM REPLENISHER): He denies having chest pain or pressure. Continue medical therapy including aspirin. Assessment & Plan (10/06/2020 12:15 PM CDT): He denies having chest pain. He takes aspirin and pravastatin. Continue same. Assessment & Plan (04/07/2020 12:05 PM REPLENISHER): Yesterday he had an episode of chest [...] same. Assessment & Plan (04/03/2019 12:19 PM REPLENISHER): He is on a good secondary prophylaxis [...] same. Assessment & Plan (04/14/2018 4:19 PM REPLENISHER): He says his grain mixer apparently . His other specialists are assisting with management of fairly stable coronary disease. He is on a reasonably good medical regimen at this time. There was consideration of doing another stress test but it does not sound like it has been done yet. 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 Thurman. Exam shows a 2 cm necrotic linear ulcer with no surrounding erythema or active purulent discharge. They are keeping it covered with a nonstick gauze. They have a follow-up with podiatry in December. Assessment & Plan (04/24/2022 11:47 AM REPLENISHER): He has good dorsal pedal pulses and feet seem pretty well perfused. Other peripheral pulses are normal. Assessment & Plan (10/21/2021 2:24 PM CDT): He has good dorsal pedal pulses bilaterally. I cannot detect the posterior tibial pulses, but both feet are well perfused. Other peripheral pulses are normal. Assessment & Plan (04/11/2021 12:05 PM REPLENISHER): He has palpable pulses in the dorsal [...] ago. Assessment & Plan (04/07/2020 12:06 PM REPLENISHER): He has no palpable pulses in the [...] therapy. Assessment & Plan (04/12/2019 11:23 AM REPLENISHER): He actually has good pulses in all [...] months. Assessment & Plan (03/28/2018 11:04 AM REPLENISHER): In the past he has had some atherosclerosis leading to ulceration and infection and eventually transmetatarsal amputation of the left foot. However, today the pulses are all intact. He does get regular follow-up at [facility]. They are trying to heal up a [...] neuropathy Assessment & Plan (07/20/2017 12:37 PM REPLENISHER): He has stocking distribution sensory loss to [...] See Abridge HPI/AP. Assessment & Plan (05/02/2024 12:13 PM REPLENISHER): Chronic, stable at this time. He sees a kidney specialist at [facility] on the same day that he sees his ergonomic specialist. Labs are checked in that setting. Clinical exam is stable. Return here in six months. Assessment & Plan (12/04/2023 4:37 PM CDT): Chronic, stable. He gets labs from Dr. Lauren in November and I asked the patient and his to make sure we get copies. Assessment & Plan (04/26/2023 12:30 PM REPLENISHER): Labs have been stable. We will get the most recent labs from his metal lather, Dr. Lauren. Assessment & Plan (11/07/2022 9:21 [...] (08/28/2022 4:12 PM CDT): Recent admission to [facility] for LAILA post paxlovid for COVID and dehydration. Creatinine improved greatly with IVF. Had normalized upon discharge last week. No acute findings on exam, no elimination issues reported. Continue current regimen. Assessment & Plan (04/24/2022 11:45 AM REPLENISHER): He had labs at his metal lather office last week, Dr. Lauren. The results are not available yet. They will be scanned to his chart and communicated to the patient when available. Assessment & Plan (10/21/2021 2:19 PM CDT): The most recent labs from his metal lather office showed a very slight increase in BUN and creatinine compared to his baseline. He was encouraged to increase fluid intake. He will keep his follow ups in endocrinology and we will also monitor labs when we receive them. Assessment & Plan (04/11/2021 12:03 PM REPLENISHER): He is followed by Nephrology. Labs have been relatively stable. He will bring copies of his next set (usually done in endocrinology, Dr. Lauren). Assessment & Plan (10/06/2020 12:16 PM CDT): He sees Dr. Wellington for his kidney issues and blood pressure control. Continue same. Assessment & Plan (04/07/2020 12:02 PM REPLENISHER): He had labs recently at his metal lather's office, Dr. Lauren. Creatinine was 1.29 which is stable or slightly improved. He will continue to follow-up in Endocrinology and return here in six months. Assessment & Plan (10/12/2019 2:08 PM CDT): He has a new social work supervisor at [facility], Dr. Cooper, who requested that labs [...] days by the wound care center at [facility] which may have temporarily caused an increase in creatinine, a false elevation. Hopefully we we will seen improvement back to his baseline with the current set of labs. Assessment & Plan (04/03/2019 12:20 PM REPLENISHER): His social work supervisor, Dr. Wellington, retired so he has a [...] monitor Assessment & Plan (03/28/2018 11:03 AM REPLENISHER): He has mild stable chronic kidney disease [...] HPI/AP. Assessment & Plan (05/08/2024 8:38 PM REPLENISHER): Chronic, uncontrolled because he ran out of glimepiride. He missed his follow-up with endocrinology at [facility] and they declined to refill the [...] November. Assessment & Plan (04/26/2023 12:32 PM REPLENISHER): Diabetes is managed at his metal lather, Dr. Lauren. He does have several complications [...] encouraged. Assessment & Plan (05/11/2022 8:54 AM REPLENISHER): He takes glimepiride and his gives him sliding scale Humalog, 1 unit per 10 carbs. He just saw his metal lather, Dr. Lauren, last week. Generally, diabetes seems reasonably well controlled. Assessment & Plan (10/21/2021 2:25 PM CDT): Blood sugars at home are in the low 100 mg/dL range. HbA1c in his metal lather office recently was 8.3%. Continue current therapy. Assessment & Plan (06/21/2021 3:24 PM REPLENISHER): Scanned diabetic eye exam, positive findings, Dr. Hermann Sauceda, [facility]. Assessment & Plan (04/11/2021 12:05 PM REPLENISHER): He is followed by Dr. Lauren. Generally [...] months. Assessment & Plan (04/07/2020 12:06 PM REPLENISHER): His recent hemoglobin A1c in Endocrinology was [...] months. Assessment & Plan (04/03/2019 12:22 PM REPLENISHER): Blood sugars are in a good range, typically in the low 100 mg%. Continue current oral hypoglycemics. We will get labs from his metal lather for review. Assessment & Plan (09/26/2018 12:24 PM CDT): He is on sliding scale short-acting insulin to control blood sugars which generally run around 100 mg/dL. His thinks the last hemoglobin A1c was about 6.6. We will request labs from Dr. Lauren. Follow-up here in six months. Assessment & Plan (03/28/2018 11:05 AM REPLENISHER): He sees Dr. Lauren for regular diabetic [...] months. Assessment & Plan (07/20/2017 12:38 PM REPLENISHER): He sees Dr. Lauren for diabetes management. [...] See Barbara HPI/AP. Assessment & Plan (05/02/2024 12:15 PM REPLENISHER): Chronic, present for more than 20 years, [...] same. Assessment & Plan (04/26/2023 12:31 PM REPLENISHER): Blood pressure is in a good range [...] encouraged. Assessment & Plan (04/24/2022 11:46 AM REPLENISHER): Blood pressure is in a good range on current therapy. Continue same, and follow- up in six months. Assessment & Plan (10/21/2021 2:23 PM CDT): Blood pressure is in a good range on current nonpharmacologic therapy. He denies having chest pain or pressure. Assessment & Plan (04/11/2021 12:04 PM REPLENISHER): Systolic blood pressure is somewhat borderline but acceptable. Continue current therapy. Assessment & Plan (10/06/2020 12:16 PM CDT): Blood pressure is in a reasonable range. He is not currently on any medical therapy. Continue same, and follow-up in six months. Assessment & Plan (04/07/2020 12:04 PM REPLENISHER): Blood pressure is in a good range on nonpharmacologic therapy. Continue to monitor. Assessment & Plan (10/02/2019 12:00 PM CDT): He has had issues with hypertension in the past, but is not currently taking anything for blood pressure. Blood pressure in the office is in a good range. Continue to monitor. Assessment & Plan (04/03/2019 12:20 PM REPLENISHER): Blood pressure is in a good range [...] HPI/AP. Assessment & Plan (05/02/2024 12:14 PM REPLENISHER): Chronic, present for more than 20 years, controlled on pravastatin 40 mg daily. Labs from his metal lather including LDL are scanned into his chart. Continue same. Assessment & Plan (12/04/2023 4:38 PM CDT): Chronic, controlled on pravastatin 40 mg daily. He gets periodic labs in his metal lather office which I independently review and interpret. These are scanned to his chart. Continue same. Assessment & Plan (04/26/2023 12:30 PM REPLENISHER): He takes pravastatin, tolerating well. Continue same. Assessment & Plan (10/23/2022 12:53 PM CDT): He is tolerating pravastatin. Labs are monitored by Dr. Lauren and scanned into his chart for review. Assessment & Plan (04/24/2022 11:46 AM REPLENISHER): He is on generic Pravachol, tolerating well. Continue same. Assessment & Plan (10/21/2021 2:22 PM CDT): He is on generic Pravachol, tolerating well. He gets labs checked at least once a year in his metal lather office. These are scanned to his chart. Assessment & Plan (10/17/2020 9:03 AM CDT): Continue pravastatin. He gets his labs checked by Dr. Lauren in endocrinology. We will request the most recent results. Assessment & Plan (04/07/2020 12:04 PM REPLENISHER): His most recent cholesterol profile looks reasonably favorable on his current Pravachol. Continue same. Assessment & Plan (10/12/2019 2:10 PM CDT): He remains on pravastatin, tolerating well. The lipid panel in Dr. Lauren's office about two months ago shows fairly good control. Continue same. Assessment & Plan (04/03/2019 12:20 PM REPLENISHER): He is on pravastatin, tolerating well. He had labs done in Endocrinology and Nephrology. We will request those results for review. Continue current therapy. Assessment & Plan (03/28/2018 11:03 AM REPLENISHER): He is on pravastatin and tolerating it well. We will review any available recent labs, typically drawn by either Nephrology or endocrinology. Assessment & Plan (09/20/2017 11:19 AM CDT): He takes pravastatin. He seems to be tolerating it just fine. We will check cholesterol profile periodically. Resolved Problems Problem Noted Date Diagnosed Date Resolved Date Hospital discharge follow-up 08/25/2022 05/02/2024 Overview (05/02/2024): [facility] Morris follow-up of acute kidney injury from dehydration. [...] ankle or foot 11/15/2020 04/23/2022 Overview (04/23/2022): [facility], details lacking. 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 Assessment & Plan (04/16/2020 11:57 AM REPLENISHER): The ulcerations on his right foot have [...] monofilament. He is getting wound care at [facility] in [place]. He was on antibiotics for about 10 [...] see office notes and wound care notes ([facility]). Closed fracture of multiple ribs of left side with routine healing 12/26/2016 03/23/2017 Acute cholecystitis 05/22/2016 03/23/20 17 Overview (08/25/2016): Acute cholecystitis Immunizations Immunization Administration Dates Next Due H1N1 [...] 09/20/2016 ZOSTER LIVE 05/21/2014 ZOSTER Recombinant 07/16/2020,04/30/2020 Social History Tobacco Use Types Packs/Day Years [...] on file Legal Sex Male 11:17 AM REPLENISHER Gender Identity Not on file Sexual Orientation Not on file Last Filed Vital Signs Vital Sign Reading [...] 10/31/2024 12:52 PM CDT Plan of Treatment Not on file Procedures Procedure Name Priority Date/Time Associated Diagnosis Comments EGFR Routine 10/31/2024 1:38 PM CDT Hypertension associated with type 2 diabetes mellitus (HCC) BASIC METABOLIC PANEL Routine 10/31/2024 1:38 PM CDT Hypertension associated with type 2 diabetes mellitus (HCC) HM HEMOGLOBIN A1C Routine 01/10/2024 HM DIABETES EYE EXAM Routine 11/07/2023 HM ALBUMIN CREATININE RATIO, URINE Routine 11/17/2022 12:00 PM CDT LIPID PANEL Routine 09/08/2020 12:[address] ABDOMEN PELVIS W CONTRAST Routine 01/21/2017 7:48 PM CDT from Last 3 Months or Most Recently Relevant to Health Maintenance Results * (ABNORMAL) eGFR (10/31/2024 1:38 PM CDT) eGFR 50(L) >=60 mL/min/1. 73 m2 Comment: [...] Inclusion of Race in Diagnosing Kidney Disease, PJSGloria 2020). The CKD-EPI equation should not be used for patients with unstable renal function and has not been validated in children and those over 70. Current interpretive data was last reviewed 2021. Testing performed by: [address] [address] Blood 10/31/2024 1:38 PM CDT 10/31/2024 8:43 PM CDT us Brent King MD LAB BLOOD ORDERABLES Final Re sult [address] [place] [address] * (ABNORMAL) Basic metabolic panel (10/31/2024 1:38 PM CDT) Sodium 136 135 - 145 mmol/L Comment:Testing performed by : [address] [address] Potassium, pl 4.5 3.3 - 4.9 mmol/L [facility] Comment:Testing performed by : [address] [address] Chloride 102 97 - 110 mmol/L [facility] Comment:Testing performed by : [address] [address] CO2 24 22 - 32 mmol/L [facility] Comment:Testing performed by : [address] [address] Anion gap 10 2 - 15 mmol/L [facility] Comment:Testing performed by : [address] [address] BUN 24 6 - 25 mg/dL [facility] Comment:Testing performed by : [address], [address] Creatinine 1.40(H) 0.80 - 1.30 mg/dL [facility] CH Comment:Testing performed by : [address] [address] Glucose 232(H) 70 - 199 mg/dL [facility] Comment: Interpretive Data Fasting glucose >/= 126 [...] classification and Diagnosis of Diabetes Diabetes Care 2021; 46: S19-S40. Current interpretive data was last revised 2022. Testing performed by: [facility], [address] [place] [address]., [address] Calcium 9.4 8.5 - 10.3 mg/dL [facility] Comment:Testing performed by : [address] [address] Blood 10/31/2024 1:38 PM CDT 10/31/2024 8:05 PM CDT Brent King MD LAB BLOOD ORDERABLES Final Re sult [address] [place] [address] * (ABNORMAL) HEMOGLOBIN A1C (01/10/2024) SCRIBED Hemoglobin A1c 7.9(A) 4.0 - 5.7 % Impressions Brent King MD - [facility]20[facility] King MD - 01/10/2024 See scanned report us Abel Lauren MD HEALTH MAINTENANCE Final Result * DIABETES EYE EXAM (11/07/2023) SCRIBED DIABETIC DILATED EYE EXAM Abnormal Impressions Brent King MD - 11/07/2023 Stable/regressed bilateral diabetic retinopathy, mature involutional cataract OS. Narrative Brent King MD - 11/07/2023 See scanned report us Hermann Sauceda MD HEALTH MAINTENANCE Fin al Result * HM ALBUMIN CREATININE RATIO, URINE (11/17/2022 12:00 PM CDT) SCRIBED HM ALBUMIN CREATININE RATIO, URINE 17 0 - 29 EXTERNAL LAB 11/17/2022 12:0 0 PM CDT Impressions EXTERNAL LAB - 11/17/2022 12:[address] Lauren office labs. Narrative EXTERNAL LAB - 11/17/2022 12:00 PM CDT See Scanned report Abel Lauren MD HEALTH MAINTENANCE Final Result [...] [facility] (see scanned report) Jacinda Epstein MD LAB BLOOD ORDERABLES Bettye l Result EXTERNAL LAB * CT Abdomen Pelvis W Contrast (01/21/2017 7:48 PM CDT) Anatomical Region Laterality Modality Body N/A Computed Tomogra phy 01/21/2017 7:48 PM CDT Narrative 01/21/2017 7:[address] ABD/PEL W IV ONLY Acc#: [id number] DATE OF EXAM: Jan [address] [...] normal. The lung bases are clear. HNHIMPRESSION: N1.[id number] CHOLECYSTECTOMY. 2.J15YFCP BILATERAL ADRENAL FULLNESS WITH NO EVIDENCE OF DISCRETE NODULE, LESS PROMINENT THAN ON THE COMPARISON STUDY. 3.E93GQVIYPDB CALCIFICATION. 4.X09NO EVIDENCE OF ACUTE INTRA-ABDOMINAL PROCESS. Electronically signed by: Clovis Fowler M.D. Interpreting Physician: DR KADE GONZALEZ M.D. Read on: Jan 21 2017 3:04P Transcribed by: [facility] On: Jan 21 2017 3:02P Approved Electronically by: LISA Carlson, DR BRAUN on: Jan 21 2017 3:02P Ordering DR: MILAGROS PATEL Attending DR: DR HARI LE Attending: DR HARI LE Requesting: MILAGROS PATEL Requesting Fax: -- Attending Fax: -- Attending ID: [id number] Requesting ID: [id number] Report To 1 ID: [id number] Report To 1 Name: DR HARI LE Report To 1 FAX: -- NextGen Order #: Procedure Note Miscellaneous, Not In File / Provider, MD Jacinda - 01/21/2017 CT ABD/PEL W IV ONLY Acc#: [id number] DATE OF EXAM: Jan [address] [...] normal. The lung bases are clear. HNHIMPRESSION: N1.Y08SQVHVSIF CHOLECYSTECTOMY. 2.K09DAIT BILATERAL ADRENAL FULLNESS WITH NO EVIDENCE OF DISCRETE NODULE, LESS PROMINENT THAN ON THE COMPARISON STUDY. 3.D15XSGMHXRT CALCIFICATION. 4.X09NO EVIDENCE OF ACUTE INTRA-ABDOMINAL PROCESS. Electronically signed by: Clovis Fowler M.D. Interpreting Physician: DR KADE GONZALEZ M.D. Read on: Jan 21 2017 3:04P Transcribed by: [facility] On: Jan 21 2017 3:02P Approved Electronically by: LISA Carlson, DR BRAUN on: Jan 21 2017 3:02P Ordering DR: MILAGROS PATEL Attending DR: DR HARI LE Attending: DR HARI LE Requesting: MILAGROS PATEL Requesting Fax: -- Attending Fax: -- Attending ID: [id number] Requesting ID: [id number] Report To 1 ID: [id number] Report To 1 Name: DR HARI LE Report To 1 FAX: -- NextGen Order #: Milagros TUBBS IMG CT PROCEDURES Final Result from Last 3 Months or Most Recently Relevant to Health Maintenance Insurance [facility] Care Teams Material Controller Relationship Specialty Start Date End Date Brent King MD [address] [place] [address] PCP - General Infectious Diseases 07/20/17 Abel Lauren MD [address] [place] [id number] Consulting Physician Endocrinology Diabetes & Metabolism 01/20/17 Raj Regalado MD [address] [place] [address] Consulting Physician Vascular Surgery 04/07/17 Libertad Neal MD [address] [place] [address] Consulting Physician Nephrology 10/03/19 Hermann Sauceda MD [address] [place] [address] Consulting Physician Ophthalmology 04/07/20 Carlie Torres MD [address] [place] [address] [address] [place], [place] [id number] Referring Physician Preventative Medicine 09/29/20 Franco Melendez MD [address] [place] [address] Consulting Physician Orthopedic Surgery 08/25/21 Mitul Gilliam MD [address] [facility] [address] [place] [address] Consulting Physician Ophthalmology 10/17/21 Erki Charles MD [address] [place] [address] Consulting Physician Podiatry 04/26/23
--- OUTSIDE RECORDS SUMMARY | 2024-11-26 14:08 | XMS_ITS | Clinical Summary ---
Author Organization [facility] Address [address] [place] [address] Phone Care Team Providers Care Salvage Grinder Name Role Phone Brent King MD Primary Care Provider [phone] Social History Tobacco Use Types Packs/Day Years Used Date Smoking Tobacco: Never Assessed Sex and Gender Information Value Date Recorded Sex Assigned at Not on file Legal Sex Male 11:36 PM CDT Gender Identity Not on file Sexual Orientation Not on file Plan of Treatment Health Maintenance Due Date Last Done Comments Hepatitis C Virus (HCV) Screening 1942 TdaP Immunization 1942 Pneumococcal Immunization (5 0+ years) (1 of 1 - PCV) 1992 Zoster Immunization (1 of 2) 1992 Respiratory Syncytial Virus (RSV) Immunization (Adult) (1 - 1-dose 75+ series) 2017 SARS-COV-2 Immunization ( season) 2024 05/28/2021, 10/23/2020, 10/02/2020 Influenza Immunization (#1) 01/19/202502/19, 05/10/2011 Hepatitis B Immunization Aged Out No longer eligible based on patient's age to complete this topic Human Papillomavirus (HPV) Immunization Aged Out No longer eligible b ased on patient's age to complete this topic Meningococcal Immunization (ACWY) Aged Out No longer eligible b ased on patient's age to complete this topic Rotavirus Immunization Aged Out No lo nger eligible based on patient's age to complete this topic Insurance MEDICARE C [employer] on file Care Teams Salvage Grinder Relationship Specialty Start Date End Date Brent King MD [address], [address] [place] [address] PCP - General Infectious Disease 08/30/16
--- OUTSIDE RECORDS SUMMARY | 2024-11-26 14:08 | XMS_ITS | Encounter Summary ---
Author Organization [facility] Address [address] [place] [address] Phone Care Team Providers Care Education Liaison Name Role Phone Abel Lauren MD Unavailable [phone] Hermann Wellington MD Unavailable [phone] Raj Regalado MD Unavailable [phone] Franco Melendez MD Unavailable [phone] Brent King MD Primary Care Provider [phone] Libertad Neal MD Unavailable +[phone] Hermann Sauceda MD Unavailable [phone] Carlie Torres MD Unavailable [phone] Franco Melendez MD Unavailable [phone] Mitul Gilliam MD Unavailable [phone] Libertad Neal MD Unavailable +[phone] Erik Charles MD Unavailable [phone] Encounter Details Date Type Department Care Team (Late st Contact Info) Description 06/30/2021 Orders Only [facility] [address] [place] [address] Brent King MD [address] [place] [address] Social History Tobacco Use Types Packs/Day Years Used Date Smoking Tobacco: Never Smokeless Tobacco: Never Alcohol Use Standard Drinks/Week Comments No 0 (1 standard drink = 0.6 oz pur e alcohol) PHQ-2 Answer Date Recorded PHQ-2 Total Score (If total score is 3 or more points, staff should administer the PHQ-9) 0 04/11/2021 Sex and Gender Information Value Date Recorded Sex Assigned at Not on file 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 Gender Identity Not on file Sexual Orientation Not on file documented as of this encounter Plan of Treatment Not on file documented as of this encounter Procedures Procedure Name Priority Date/Time Associated Diagnosis Comments SCAN - LABS 06/30/2021 documented in this encounter Results * SCAN - LABS (06/30/2021) Brent King MD Final Result documented in this encounter Visit Diagnoses Not on filedocumented in this encounter Additional Health Concerns Infection Onset Date Last Indicated Resolved Time COVID: Suspected 08/14/2022 08/14/2022 08/14/2022 8:58 PM CDT COVID19 08/14/2022 08/14/2022 08/17/2022 2:13 PM CDT COVID: Recovered 08/17/2022 08/17/2022 11/15/2022 3:05 AM CDT documented as of this encounter Care Teams Education Liaison Relationship Specialty Start Date End Date Brent King MD [address] [place] [address] PCP - General Infectious Diseases 07/20/17 Abel Lauren MD [address] [place] [address] Consulting Physician Endocrinology Diabetes & Metabolism 01/20/17 Hermann Wellington MD [address] [place] [address] Consulting Physician Nephrology 04/07/17 08/24/21 Raj Regalado MD [address] [place] [address] Consulting Physician Vascular Surgery 04/07/17 Franco Melendez MD [address] [place] [address] Consulting Physician Orthopedic Surgery 08/04/15 Libertad Neal MD [address] [facility] [address] [place] [address] Consulting Physician Nephrology 10/03/19 Hermann Sauceda MD [address] [facility] [address] [place] [address] Consulting Physician Ophthalmology 04/07/20 Carlie Torres MD [address] [place] [address] [address] ANASTACIO Hummel [facility] [address] [place] [address] Referring Physician Preventative Medicine 09/29/20 Franco Melendez MD [address] [place] [address] Consulting Physician Orthopedic Surgery 08/25/21 Mitul Gilliam MD [address] [facility] [address] [place] [address] Consulting Physician Ophthalmology 10/17/21 Libertad Neal MD [address] [facility] [address] [place] [address] Consulting Physician Nephrology 10/21/21 10/21/21 Erik Charles MD [address] [facility] [place] [address] Consulting Physician Podiatry 04/26/23 documented as of this encounter
--- OUTSIDE RECORDS SUMMARY | 2024-11-26 14:08 | XMS_ITS | Encounter Summary ---
Author Organization [facility] Address [address] [place] [address] Phone Care Team Providers Care Predictive Maintenance Specialist Name Role Phone Abel Lauren MD Unavailable [phone] Hermann Wellington MD Unavailable [phone] Raj Regalado MD Unavailable [phone] Hermann Sauceda MD Primary Care Provider Franco Melendez MD Unavailable [phone] Brent King MD Primary Care Provider [phone] Libertad Neal MD Unavailable [phone] Hermann Sauceda MD Unavailable [phone] Carlie Torres MD Unavailable [phone] Franco Melendez MD Unavailable [phone] Mitul Gilliam MD Unavailable [phone] Libertad Neal MD Unavailable [phone] Erik Charles MD Unavailable [phone] Encounter Details Date Type Department Care Team (Late st Contact Info) Description 07/16/2017 Orders Only [facility] [address] [place] [address] Brent King MD [address] [place] [address] Social History Tobacco Use Types Packs/Day Years Used Date Smoking Tobacco: Former Smokeless Tobacco: Never Alcohol Use Standard Drinks/Week Comments No 0 (1 standard drink = 0.6 oz pur e alcohol) Sex and Gender Information Value Date Recorded Sex Assigned at Not on file 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 Gender Identity Not on file Sexual Orientation Not on file documented as of this encounter Plan of Treatment Not on file documented as of this encounter Procedures Procedure Name Priority Date/Time Associated Diagnosis Comments SCAN - LABS 07/16/2017 3:10 PM ROOM CLEANER documented in this encounter Results * SCAN - LABS (07/16/2017 3:10 PM ROOM CLEANER) Brent King MD Final Result documented in this encounter Visit Diagnoses Not on filedocumented in this encounter Additional Health Concerns Infection Onset Date Last Indicated Resolved Time COVID: Suspected 08/14/2022 08/14/2022 08/14/2022 8:58 PM CDT COVID19 08/14/2022 08/14/2022 08/17/2022 2:13 PM CDT COVID: Recovered 08/17/2022 08/17/2022 11/15/2022 3:05 AM CDT documented as of this encounter Care Teams Predictive Maintenance Specialist Relationship Specialty Start Date End Date Hermann Sauceda MD [address] [place] [address] PCP - General Ophthalmology 03/21/17 07/19/17 Brent King MD [address] [place] [address] PCP - General Infectious Diseases 07/20/17 Abel Lauren MD [address] [place] [address] Consulting Physician Endocrinology Diabetes & Metabolism 01/20/17 Hermann Wellington MD [address] [place] [address] Consulting Physician Nephrology 04/07/17 08/24/21 Raj Regalado MD [address] [place] [address] Consulting Physician Vascular Surgery 04/07/17 Franco Melendez MD [address] [place] [address] Consulting Physician Orthopedic Surgery 08/04/15 2 Libertad Neal MD [address] [facility] [address] [place] [address] Consulting Physician Nephrology 10/03/19 Hermann Sauceda MD [address] [place] [address] Consulting Physician Ophthalmology 04/07/20 Carlie Torres MD [address] [place] [address] [address] [place] [address] Referring Physician Preventative Medicine 09/29/20 Franco Melendez MD [address] [facility] [address] [place] [address] Consulting Physician Orthopedic Surgery 08/25/21 Mitul Gilliam MD [address] [facility] [address] [place] [address] Consulting Physician Ophthalmology 10/17/21 Libertad Neal MD [address] [facility] [address] [place] [address] Consulting Physician Nephrology 10/21/21 10/21/21 Erik Charles MD [address] [facility] [address] [place] [address] Consulting Physician Podiatry 04/26/23 documented as of this encounter
--- OUTSIDE RECORDS SUMMARY | 2024-11-26 14:08 | XMS_ITS | Encounter Summary ---
Author Organization [facility] Address [address] [place] [address] Care Team Providers Care Interior Design Professional Name Role Phone Abel Lauren MD Unavailable [phone] Raj Regalado MD Unavailable [phone] Brent King MD Primary Care Provider [phone] Libertad Neal MD Unavailable [phone] Hermann Sauceda MD Unavailable Carlie Torres MD Unavailable [phone] Franco Melendez MD Unavailable [phone] Mitul Gilliam MD Unavailable [phone] Erik Charles MD Unavailable [phone] Encounter Details Date Type Department Care Team (Late st Contact Info) Description 11/19/2024 Telephone [facility] [address] [place] [address] Brent King MD [address] [place] [address] Social History Tobacco Use Types [...] often do you attend chur ch or mandaeism services? 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 Gender Identity Not on file Sexual Orientation Not on file documented as of this encounter Miscellaneous Notes * Telephone Encounter - Kar Del Cid RN - 11/26/2024 9:50 AM CDT Attempted to call pt Na/vm full Cbn#[phone] [facility] Cbn#[phone] daughter Deana (See add 11/03 phone note also) * Telephone Encounter - Kar Del Cid RN - 11/24/2024 9:41 AM CDT Attempted to call pt Na/vm full Cbn#[phone] (See add 11/03 phone note also) * Telephone Encounter - Kar Del Cid RN - 11/20/2024 2:13 PM CDT Attempted to call pt Na/vm full Cbn#[phone] * Telephone Encounter - Kar Del Cid RN - 11/20/2024 11:32 AM CDT Attempted to call pt Na/vm full Cbn#[phone] * Telephone Encounter - Brent King MD - 11/19/2024 4:23 PM CDT Yes, I believe he is due for a hemoglobin A1c. Please refer him to Dr. Law, endocrinology, at [facility]. * Telephone Encounter - Malu Sarabia - 11/19/2024 9:28 AM CDT called, patient is willing to see Endo for the elevated BS. He has an appt with Wound clinic on November). Pt is leaving for vacation tomorrow. On November 26 patient is going to a welfare intake clinic in [place] where he is being extensively tested for kidney disease. No recent A1c, will [facility] want pt to have one done? if so, will do when he returns from vacation. CBN. [phone] (See 11/03 conversation) documented in this encounter Plan of Treatment Not on file documented as of this encounter Visit Diagnoses Not on filedocumented in this encounter Care Teams Interior Design Professional Relationship Specialty Start Date End Date Brent King MD [address] [facility] [address] [place] [address] PCP - General Infectious Diseases 07/20/17 Abel Lauren MD [address] [place] [address] Consulting Physician Endocrinology Diabetes & Metabolism 01/20/17 Raj Regalado MD [address] [place] [address] Consulting Physician Vascular Surgery 04/07/17 Libertad Neal MD [address] [address] Consulting Physician Nephrology 10/03/19 Hermann Sauceda MD [address] [facility] [address] [place] [address] Consulting Physician Ophthalmology 04/07/20 Carlie Torres MD [address] [place] [address] [address] [place] [address] Referring Physician Preventative Medicine 09/29/20 Franco Melendez MD [address] [facility] [address] [place] [address] Consulting Physician Orthopedic Surgery 08/25/21 Mitul Gilliam MD [address] [facility] [address] [place] [address] Consulting Physician Ophthalmology 10/17/21 Erik Charles MD [address] [facility] [address] [place] [address] Consulting Physician Podiatry 04/26/23 documented as of this encounter
--- OUTSIDE RECORDS SUMMARY | 2024-11-26 14:08 | XMS_ITS | Encounter Summary ---
Author Organization [facility] Address [address] [place] [address] Phone Care Team Providers Care Generation Engineer Name Role Phone Brent King MD Primary Care Provider [phone] Abel Lauren MD Unavailable [phone] Hermann Wellington MD Unavailable [phone] Raj Regalado MD Unavailable [phone] Hermann Sauceda MD Primary Care Provider Franco Melendez MD Unavailable [phone] Brent King MD Primary Care Provider [phone] Libertad Neal MD Unavailable +[phone] Hermann Sauceda MD Unavailable [phone] Carlie Torres MD Unavailable [phone] Franco Melendez MD Unavailable [phone] Mitul Gilliam MD Unavailable [phone] Libertad Neal MD Unavailable [phone] Erik Charles MD Unavailable [phone] Reason for Referral * Consultation (Routine) - Closed Specialty Diagnoses / Procedures Referred By Meng t Referred To Contact Cardiology Diagnoses Other specified peripheral vascular diseases (CODE) Brent King MD Phone: tel: fax: Raj Regalado MD Phone: tel: fax: Referral ID Status Reason Start Date Expiration Date V isits Requested Visits Authorized [id number] Closed Specialty Services Required 02/16/2017 08/16/2017 12 12 Comments REF#[id number] 02/16/17 TO 08/16/[address]Brent Regalado Encounter Details Date Type Department Care Team (Late st Contact Info) Description 02/21/2017 Orders Only [facility] [address] [place] [address] Brent King MD [address] [place] [address] Other specified peripheral vascular diseases (CODE) (CMS/HCC) (Primary Dx) Social History Tobacco Use Types Packs/Day Years Used Date Smoking Tobacco: Former Smokeless Tobacco: Never Alcohol Use Standard Drinks/Week Comments No 0 (1 standard drink = 0.6 oz pur e alcohol) Sex and Gender Information Value Date Recorded Sex Assigned at Not on file Legal Sex Male 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 Gender Identity Not on file Sexual Orientation Not on file documented as of this encounter Plan of Treatment Scheduled Referrals Name Type Priority Associated Diagnoses Order Schedule Ambulatory referral to Cardiology Outpatient Referral Routine Other Specified Peripheral Vascular Diseases (Code) 1 Occurrences starting 02/21/2017 until 08/22/2017 documented as of this encounter Visit Diagnoses Diagnosis Other specified peripheral vascular diseases (CODE)- Primary documented in this encounter Additional Health Concerns Infection Onset Date Last Indicated Resolved Time COVID: Suspected 08/14/2022 08/14/2022 08/14/2022 8:58 PM CDT COVID19 08/14/2022 08/14/2022 08/17/2022 2:13 PM CDT COVID: Recovered 08/17/2022 08/17/2022 11/15/2022 3:05 AM CDT documented as of this encounter Care Teams Generation Engineer Relationship Specialty Start Date End Date Brent King MD [address] [place] [address] PCP - General 12/26/16 03/20/17 Hermann Sauceda MD [address] [place] [address] PCP - General Ophthalmology 03/21/17 07/19/17 Brent King MD [address] [place] [address] PCP - General Infectious Diseases 07/20/17 Abel Lauren MD [facility] [place] [address] Consulting Physician Endocrinology Diabetes & Metabolism 01/20/17 Hermann [place] MD [facility] [address] [place] [address] Consulting Physician Nephrology 04/07/17 08/24/21 Raj Regalado MD [address] [place] [address] Consulting Physician Vascular Surgery 04/07/17 Franco Melendez MD [address] [place] [address] Consulting Physician Orthopedic Surgery 08/04/15 2 Libertad Neal MD [address] [address] Consulting Physician Nephrology 10/03/19 Hermann Sauceda MD [address] [facility] [address] Consulting Physician Ophthalmology 04/07/20 Carlie Torres MD [address] [place] [address] [address] [place] [address] Referring Physician Preventative Medicine 09/29/20 Franco Melendez MD [address] [facility] [address] [place] [address] Consulting Physician Orthopedic Surgery 08/25/21 Mitul Gilliam MD [address] [facility] [address] [place] [address] Consulting Physician Ophthalmology 10/17/21 Libertad Neal MD [address] [facility] [address] [place] [address] Consulting Physician Nephrology 10/21/21 10/21/21 Erik Charles MD [address] [facility] [address] [place] [address] Consulting Physician Podiatry 04/26/23 documented as of this encounter
--- OUTSIDE RECORDS SUMMARY | 2024-11-26 14:08 | XMS_ITS | Encounter Summary ---
Author Organization [employer] [facility] Address [address] [place] [address] Phone Care Team Providers Care Oil Pump Station Operator Chief Name Role Phone Brent King MD Primary Care Provider [phone] Brent King MD Primary Care Provider [phone] Abel Lauren MD Unavailable [phone] Hermann Wellington MD Unavailable [phone] Raj Regalado MD Unavailable [phone] Hermann Sauceda MD Primary Care Provider Franco Melendez MD Unavailable [phone] Brent King MD Primary Care Provider [phone] Libertad Neal MD Unavailable [phone] Hermann Sauceda MD Unavailable [phone] Carlie Torres MD Unavailable [phone] Franco Melendez MD Unavailable [phone] Mitul Gilliam MD Unavailable [phone] Libertad Neal MD Unavailable [phone] Erik Charles MD Unavailable [phone] Encounter Details Date Type Department Care Team (Late st Contact Info) Description 12/21/2016 Orders Only [facility] [address] [place] [address] Brent King MD [address] [place] [address] Type 2 diabetes mellitus with foot ulcer, unspecified fdc insulin use status (Primary Dx) Social History Tobacco Use Types Packs/Day Years Used Date Smoking Tobacco: Former Cigarettes Q uit: 05/21/1956 Alcohol Use Standard Drinks/Week Comments No 0 (1 standard drink = 0.6 oz pur e alcohol) Sex and Gender Information Value Date Recorded Sex Assigned at Not on file 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 Gender Identity Not on file Sexual Orientation Not on file documented as of this encounter Plan of Treatment Not on file documented as of this encounter Visit Diagnoses Diagnosis Type 2 diabetes mellitus with foot ulcer, unspecified extermination supervisor insulin use status- Primary documented in this encounter Additional Health Concerns Infection Onset Date Last Indicated Resolved Time COVID: Suspected 08/14/2022 08/14/2022 08/14/2022 8:58 PM CDT COVID19 08/14/2022 08/14/2022 08/17/2022 2:13 PM CDT COVID: Recovered 08/17/2022 08/17/2022 11/15/2022 3:05 AM CDT documented as of this encounter Care Teams Oil Pump Station Operator Chief Relationship Specialty Start Date End Date Brent King MD [address] [place] [address] PCP - General 08/18/16 12/25/16 Brent King MD [address] [place] [address] PCP - General 12/26/16 03/20/17 Hermann Sauceda MD [address] [place], [place] [address] PCP - General Ophthalmology 03/21/17 07/19/17 Brent King MD [address] [place] [address] PCP - General Infectious Diseases 07/20/17 Abel Lauren MD [address] [place] [address] Consulting Physician Endocrinology Diabetes & Metabolism 01/20/17 Hermann [place] MD [address] [place] [address] Consulting Physician Nephrology 04/07/17 08/24/21 Raj Regalado MD [address] [place] [address] Consulting Physician Vascular Surgery 04/07/17 Franco Melendez MD [address] [place] [address] Consulting Physician Orthopedic Surgery 08/04/15 2 Libertad Neal MD [address] [place] [address] Consulting Physician Nephrology 10/03/19 Hermann Sauceda MD [address] [place] [address] Consulting Physician Ophthalmology 04/07/20 Carlie Torres MD [address] [place] [address] [address] ANAST[address] Hummel [address] [address] Referring Physician Preventative Medicine 09/29/20 Franco Melendez MD [address] [facility] [address] [place] [address] Consulting Physician Orthopedic Surgery 08/25/21 Mitul Gilliam MD [address] [facility] [address] [place] [address] Consulting Physician Ophthalmology 10/17/21 Libertad Neal MD [address] [facility] [address] [place] [address] Consulting Physician Nephrology 10/21/21 10/21/21 Erik Charles MD [address] [facility] [address] [place] [address] Consulting Physician Podiatry 04/26/23 documented as of this encounter
--- OUTSIDE RECORDS SUMMARY | 2024-11-26 14:08 | XMS_ITS | Encounter Summary ---
Author Organization [facility] Address [address] [place] [address] Phone Care Team Providers Care Water Pollution Scientist Name Role Phone Brent King MD Primary Care Provider [phone] Abel Lauren MD Unavailable [phone] Hermann Wellington MD Unavailable [phone] Raj Regalado MD Unavailable [phone] Hermann Sauceda MD Primary Care Provider Franco Melendez MD Unavailable +[phone] Brent King MD Primary Care Provider [phone] Libertad Neal MD Unavailable [phone] Hermann Sauceda MD Unavailable [phone] Carlie Torres MD Unavailable [phone] Franco Melendez MD Unavailable +[phone] Mitul Gilliam MD Unavailable +[phone] Libertad Neal MD Unavailable +[phone] Erik Charles MD Unavailable [phone] Encounter Details Date Type Department Care Team (Late st Contact Info) Description 02/16/2017 Orders Only [facility] [address] [place] [address] Brent King MD [address] [address] Diabetic mononeuropathy simplex (HCC) (Primary Dx) Social History Tobacco Use Types Packs/Day Years Used Date Smoking Tobacco: Former Smokeless Tobacco: Never Alcohol Use Standard Drinks/Week Comments No 0 (1 standard drink = 0.6 oz pur e alcohol) Sex and Gender Information Value Date Recorded Sex Assigned at Not on file Legal Sex Male 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 DIRECTOR OF PATIENT FINANCIAL SERVICES Gender Identity Not on file Sexual Orientation Not on file documented as of this encounter Plan of Treatment Not on file documented as of this encounter Visit Diagnoses Diagnosis 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, not stated as uncontrolled documented in this encounter Additional Health Concerns Infection Onset Date Last Indicated Resolved Time COVID: Suspected 08/14/2022 08/14/2022 08/14/2022 8:58 PM CDT COVID19 08/14/2022 08/14/2022 08/17/2022 2:13 PM CDT COVID: Recovered 08/17/2022 08/17/2022 11/15/2022 3:05 AM CDT documented as of this encounter Care Teams Water Pollution Scientist Relationship Specialty Start Date End Date Brent King MD [address] [place] [address] PCP - General 12/26/16 03/20/17 Hermann Sauceda MD [address] [place] [address] PCP - General Ophthalmology 03/21/17 07/19/17 Brent King MD [address] [place] [address] PCP - General Infectious Diseases 07/20/17 Abel Lauren MD [address] [place] [address] Consulting Physician Endocrinology Diabetes & Metabolism 01/20/17 Hermann Wellington MD [address] [place] [address] Consulting Physician Nephrology 04/07/17 08/24/21 Raj Regalado MD [address] [place] [address] Consulting Physician Vascular Surgery 04/07/17 Franco Melendez MD [address] [place] [address] Consulting Physician Orthopedic Surgery 08/04/15 2 Libertad Neal MD [address] [place], [place] [address] Consulting Physician Nephrology 10/03/19 Hermann Sauceda MD [address] [place] [address] Consulting Physician Ophthalmology 04/07/20 Carlie Torres MD [address] [place] [address] [address] A[address]mel [address] [place], [place] [address] Referring Physician Preventative Medicine 09/29/20 Franco Melendez MD [address] [facility] [address] [place] [address] Consulting Physician Orthopedic Surgery 08/25/21 Mitul Gilliam MD [address] [facility] [address] [place] [address] Consulting Physician Ophthalmology 10/17/21 Libertad Neal MD [address] [facility] [address] [place] [address] Consulting Physician Nephrology 10/21/21 10/21/21 Erik Charles MD [address] [facility] [address] [place] [address] Consulting Physician Podiatry 04/26/23 documented as of this encounter
--- OUTSIDE RECORDS SUMMARY | 2024-11-26 14:08 | XMS_ITS | Clinical Summary ---
Author Organization [facility] Address [address] [place] [address] Care Team Providers Care Sheet Writer Name Role Phone Unavailable Primary Care Provider Unavailabl e Social History Tobacco Use Types Packs/Day Years Used Date Smoking Tobacco: Never Assessed Sex and Gender Information Value Date Recorded Sex Assigned at Not on file Legal Sex Male 7:55 PM CDT Gender Identity Not on file Sexual Orientation Not on file Plan of Treatment Health Maintenance Due Date Last Done Comments DTaP, Tdap and Td Vaccines ( 1 - Tdap) 1961 Pneumococcal Vaccine: 50+ Ye ars (1 of 1 - PCV) 1992 Zoster Vaccines (1 of 2) 1992 RSV Immunization or 60+ Years (1 - 1-dose 75+ series) 2017 COVID-19 Vaccine ( - 2023-2 5 season) 2024 Meningococcal B Vaccine Aged Out No l onger eligible based on patient's age to complete this topic Meningococcal Vaccine Aged Out No benjamin cory eligible based on patient's age to complete this topic RSV Immunizations Under 20 Months Aged Out No longer eligible based on patient's age to complete this topic
--- OUTSIDE RECORDS SUMMARY | 2024-11-26 14:08 | XMS_ITS | Encounter Summary ---
Author Organization [facility] Address [address] [place] [address] Phone Care Team Providers Care Cattle Sticker Name Role Phone Abel Lauren MD Unavailable [phone] Raj Regalado MD Unavailable [phone] Brent King MD Primary Care Provider [phone] Libertad Neal MD Unavailable [phone] Hermann Sauceda MD Unavailable Carlie Torres MD Unavailable [phone] Franco Melendez MD Unavailable [phone] Mitul Gilliam MD Unavailable [phone] Erik Charles MD Unavailable [phone] Encounter Details Date Type Department Care Team (Late st Contact Info) Description 01/03/2022 Orders Only [facility] [address] [place] [address] Brent King MD [address] MC [address] [place] [address] Social History Tobacco Use Types Packs/Day [...] on file 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 Gender Identity Not on file Sexual Orientation Not on file documented as of this encounter Plan of Treatment Not on file documented as of this encounter Procedures Procedure Name Priority Date/Time Associated Diagnosis Comments SCAN - LABS 01/03/2022 documented in this encounter Results * SCAN - LABS (01/03/2022) us Brent King MD Final Result documented in this encounter Visit Diagnoses Not on filedocumented in this encounter Additional Health Concerns Infection Onset Date Last Indicated Resolved Time COVID: Suspected 08/14/2022 08/14/2022 08/14/2022 8:58 PM CDT COVID19 08/14/2022 08/14/2022 08/17/2022 2:13 PM CDT COVID: Recovered 08/17/2022 08/17/2022 11/15/2022 3:05 AM CDT documented as of this encounter Care Teams Cattle Sticker Relationship Specialty Start Date End Date Brent King MD [address] [place] [address] PCP - General Infectious Diseases 07/20/17 Abel Lauren MD [address] [place] [address] Consulting Physician Endocrinology Diabetes & Metabolism 01/20/17 Raj Regalado MD [address] [place] [address] Consulting Physician Vascular Surgery 04/07/17 Libertad Neal MD [address] [facility] [address] [place] [address] Consulting Physician Nephrology 10/03/19 Hermann Sauceda MD [address] [facility] [address] [place] [address] Consulting Physician Ophthalmology 04/07/20 Carlie Torres MD [address] [place] [address] [address] [place] [address] Referring Physician Preventative Medicine 09/29/20 Franco Melendez MD [address] [facility] [place] [address] [place] [address] Consulting Physician Orthopedic Surgery 08/25/21 Mitul Gilliam MD [address] [facility] [address] [place] [address] Consulting Physician Ophthalmology 10/17/21 Erik Charles MD [address] [facility] [address] [place] [address] Consulting Physician Podiatry 04/26/23 documented as of this encounter
--- OUTSIDE RECORDS SUMMARY | 2024-11-26 14:08 | XMS_ITS | Encounter Summary ---
Author Organization [facility] Address [address] [place] [address] Phone Care Team Providers Care Microfilm Duplicating Unit Supervisor Name Role Phone Abel Lauren MD Unavailable [phone] Hermann Wellington MD Unavailable [phone] Raj Regalado MD Unavailable [phone] Hermann Sauceda MD Primary Care Provider Franco Melendez MD Unavailable [phone] Brent King MD Primary Care Provider [phone] Libertad Neal MD Unavailable [phone] Hermann Sauceda MD Unavailable [phone] Carlie Torres MD Unavailable [phone] Franco Melendez MD Unavailable [phone] Mitul Gilliam MD Unavailable [phone] Libertad Neal MD Unavailable [phone] Erik Charles MD Unavailable [phone] Encounter Details Date Type Department Care Team (Late st Contact Info) Description 04/04/2017 Orders Only [facility] [address] [place] [address] Brent King MD [address] [place] [address] Chronic kidney disease, stage III (moderate) (HCC) (Primary Dx) Social History Tobacco Use Types Packs/Day Years Used Date Smoking Tobacco: Former Smokeless Tobacco: Never Alcohol Use Standard Drinks/Week Comments No 0 (1 standard drink = 0.6 oz pur e alcohol) Sex and Gender Information Value Date Recorded Sex Assigned at Not on file 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 Gender Identity Not on file Sexual Orientation Not on file documented as of this encounter Plan of Treatment Not on file documented as of this encounter Visit Diagnoses Diagnosis Chronic kidney disease, stage III (moderate) (HCC)- Primary Chronic kidney disease, Stage III (moderate) documented in this encounter Additional Health Concerns Infection Onset Date Last Indicated Resolved Time COVID: Suspected 08/14/2022 08/14/2022 08/14/2022 8:58 PM CDT COVID19 08/14/2022 08/14/2022 08/17/2022 2:13 PM CDT COVID: Recovered 08/17/2022 08/17/2022 11/15/2022 3:05 AM CDT documented as of this encounter Care Teams Microfilm Duplicating Unit Supervisor Relationship Specialty Start Date End Date Hermann Sauceda MD [address] [place] [address] PCP - General Ophthalmology 03/21/17 07/19/17 Brent King MD [address] [place] [address] PCP - General Infectious Diseases 07/20/17 Abel Lauren MD [address] [place] [address] Consulting Physician Endocrinology Diabetes & Metabolism 01/20/17 Hermann [place] MD [address] [place] [address] Consulting Physician Nephrology 04/07/17 08/24/21 Raj Regalado MD [address] [place] [address] Consulting Physician Vascular Surgery 04/07/17 Franco Melendez MD [address] [place] [address] Consulting Physician Orthopedic Surgery 08/04/15 2 Libertad Neal MD [address] [facility] [address] [place] [address] Consulting Physician Nephrology 10/03/19 Hermann Sauceda MD [address] [place] [address] Consulting Physician Ophthalmology 04/07/20 Carlie Torres MD [address] [place] [address] [address] [place] [address] Referring Physician Preventative Medicine 09/29/20 Franco Melendez MD [address] [facility] [place] [address] [place] [address] Consulting Physician Orthopedic Surgery 08/25/21 Mitul Gilliam MD [address] [facility] [address] [place] [address] Consulting Physician Ophthalmology 10/17/21 Libertad Neal MD [address] [facility] [address] [place] [address] Consulting Physician Nephrology 10/21/21 10/21/21 Erik Charles MD [address] [facility] [address] [place] [address] Consulting Physician Podiatry 04/26/23 documented as of this encounter
--- OUTSIDE RECORDS SUMMARY | 2024-11-26 14:08 | XMS_ITS | Encounter Summary ---
Author Organization [facility] Address [address] [place] [address] Phone Care Team Providers Care Painter Structural Steel Name Role Phone Abel Lauren MD Unavailable [phone] Hermann [place] MD Unavailable [phone] Raj Regalado MD Unavailable [phone] Hermann Sauceda MD Primary Care Provider Franco Melendez MD Unavailable [phone] Brent King MD Primary Care Provider [phone] Libertad Neal MD Unavailable + [phone] Hermann Sauceda MD Unavailable [phone] Carlie Torres MD Unavailable [phone] Franco Melendez MD Unavailable [phone] Mitul Gilliam MD Unavailable [phone] Libertad Neal MD Unavailable +[phone] Erik Charles MD Unavailable [phone] Encounter Details Date Type Department Care Team (Late st Contact Info) Description 04/04/2017 Orders Only [facility] [address] [place] [address] Brent King MD [address] [place] [address] Social History Tobacco Use Types Packs/Day Years Used Date Smoking Tobacco: Former Smokeless Tobacco: Never Alcohol Use Standard Drinks/Week Comments No 0 (1 standard drink = 0.6 oz pur e alcohol) Sex and Gender Information Value Date Recorded Sex Assigned at Not on file 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 Gender Identity Not on file Sexual Orientation Not on file documented as of this encounter Plan of Treatment Not on file documented as of this encounter Procedures Procedure Name Priority Date/Time Associated Diagnosis Comments SCAN - LABS 04/04/2017 2:37 PM ACCOUNTS PAYABLE ACCOUNTANT documented in this encounter Results * SCAN - LABS (04/04/2017 2:37 PM ACCOUNTS PAYABLE ACCOUNTANT) Brent King MD Final Result documented in this encounter Visit Diagnoses Not on filedocumented in this encounter Additional Health Concerns Infection Onset Date Last Indicated Resolved Time COVID: Suspected 08/14/2022 08/14/2022 08/14/2022 8:58 PM CDT COVID19 08/14/2022 08/14/2022 08/17/2022 2:13 PM CDT COVID: Recovered 08/17/2022 08/17/2022 11/15/2022 3:05 AM CDT documented as of this encounter Care Teams Painter Structural Steel Relationship Specialty Start Date End Date Hermann Sauceda MD [address] [place] [address] PCP - General Ophthalmology 03/21/17 07/19/17 Brent King MD [address] [place] [address] PCP - General Infectious Diseases 07/20/17 Abel Lauren MD [address] [place] [address] Consulting Physician Endocrinology Diabetes & Metabolism 01/20/17 Hermann [place] MD [address] [place] [address] Consulting Physician Nephrology 04/07/17 08/24/21 Raj Regalado MD [address] [place] [address] Consulting Physician Vascular Surgery 04/07/17 Franco Melendez MD [address] [place] [address] Consulting Physician Orthopedic Surgery 08/04/15 2 Libertad Neal MD [address] [facility] [address] [place] [address] Consulting Physician Nephrology 10/03/19 Hermann Sauceda MD [address] [place] [address] Consulting Physician Ophthalmology 04/07/20 Carlie Torres MD [address] [place] [address] [address] [place] [address] Referring Physician Preventative Medicine 09/29/20 Franco Melendez MD [address] [facility] [address] [place] [address] Consulting Physician Orthopedic Surgery 08/25/21 Mitul Gilliam MD [address] [facility] [address] [place] [address] Consulting Physician Ophthalmology 10/17/21 Libertad Neal MD [address] [facility] [address] [place] [address] Consulting Physician Nephrology 10/21/21 10/21/21 Erik Charles MD [address] [facility] [address] [place] [address] Consulting Physician Podiatry 04/26/23 documented as of this encounter
--- OUTSIDE RECORDS SUMMARY | 2024-11-26 14:08 | XMS_ITS | Encounter Summary ---
Author Organization [facility] Address [address] [place] [address] Phone Care Team Providers Care Exhauster Name Role Phone Brent King MD Primary Care Provider [phone] Abel Lauren MD Unavailable [phone] Hermann Wellington MD Unavailable [phone] Raj Regalado MD Unavailable [phone] Hermann Sauceda MD Primary Care Provider Franco Melendez MD Unavailable [phone] Brent King MD Primary Care Provider [phone] Libertad Neal MD Unavailable [phone] Hermann Sauceda MD Unavailable [phone] Carlie Torres MD Unavailable [phone] Franco Melendez MD Unavailable [phone] Mitul Gilliam MD Unavailable [phone] Libertad Neal MD Unavailable [phone] Erik Charles MD Unavailable [phone] Encounter Details Date Type Department Care Team (Late st Contact Info) Description 02/28/2017 Orders Only [facility] [address] [place] [address] Brent King MD [address] [place] [address] 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, unspecified laterality, unspecified retinopathy severity (HCC) (Primary Dx) Social History Tobacco Use Types Packs/Day Years Used Date Smoking Tobacco: Former Smokeless Tobacco: Never Alcohol Use Standard Drinks/Week Comments No 0 (1 standard drink = 0.6 oz pur e alcohol) Sex and Gender Information Value Date Recorded Sex Assigned at Not on file 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[employer] Gender Identity Not on file Sexual Orientation Not on file documented as of this encounter Plan of Treatment Not on file documented as of this encounter Visit Diagnoses Diagnosis 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, unspecified laterality, unspecified retinopathy severity (HCC)- Primary documented in this encounter Additional Health Concerns Infection Onset Date Last Indicated Resolved Time COVID: Suspected 08/14/2022 08/14/2022 08/14/2022 8:58 PM CDT COVID19 08/14/2022 08/14/2022 08/17/2022 2:13 PM CDT COVID: Recovered 08/17/2022 08/17/2022 11/15/2022 3:05 AM CDT documented as of this encounter Care Teams Exhauster Relationship Specialty Start Date End Date Brent King MD [address] [place] [address] PCP - General 12/26/16 03/20/17 Hermann Sauceda MD [address] [place] [address] PCP - General Ophthalmology 03/21/17 07/19/17 Brent King MD [address] [place] [address] PCP - General Infectious Diseases 07/20/17 Abel Lauren MD [address] [place] [address] Consulting Physician Endocrinology Diabetes & Metabolism 01/20/17 Hermann Wellington MD [address] [place] [address] Consulting Physician Nephrology 04/07/17 08/24/21 Raj Regalado MD [address] [place] [address] Consulting Physician Vascular Surgery 04/07/17 Franco Melendez MD [address] [place] [address] Consulting Physician Orthopedic Surgery 08/04/15 2 Libertad Neal MD [address] [facility] [address] [place] [address] Consulting Physician Nephrology 10/03/19 Hermann Sauceda MD [address] [place] [address] Consulting Physician Ophthalmology 04/07/20 Carlie Torres MD [address] [place] [address] [address] [facility] 10 [place], [place] [address] Referring Physician Preventative Medicine 09/29/20 Franco Melendez MD [address] [facility] [address] [place] [address] Consulting Physician Orthopedic Surgery 08/25/21 Mitul Gilliam MD [address] [facility] [address] [place] [address] Consulting Physician Ophthalmology 10/17/21 Libertad Neal MD [address] [facility] [address] [place], [place] [address] Consulting Physician Nephrology 10/21/21 10/21/21 Erik Charles MD [address] [facility] [address] [place] [address] Consulting Physician Podiatry 04/26/23 documented as of this encounter
--- OUTSIDE RECORDS SUMMARY | 2024-11-26 14:08 | XMS_ITS | Encounter Summary ---
Author Organization [facility] Address [address] [place] [address] Phone Care Team Providers Care C D Still Operator Name Role Phone Brent King MD Primary Care Provider [phone] Abel Lauren MD Unavailable [phone] Hermann Wellington MD Unavailable [phone] Raj Regalado MD Unavailable [phone] Hermann Sauceda MD Primary Care Provider Franco Melendez MD Unavailable [phone] Bernt King MD Primary Care Provider [phone] Libertad Neal MD Unavailable +[phone] Hermann Sauceda MD Unavailable [phone] Carlie Torres MD Unavailable [phone] Franco Melendez MD Unavailable [phone] Mitul Gilliam MD Unavailable [phone] Libertad Neal MD Unavailable [phone] Erik Charles MD Unavailable [phone] Encounter Details Date Type Department Care Team (Late st Contact Info) Description 02/27/2017 Orders Only [facility] [address] [place] [address] Brent King MD [address] [place] [address] Social History Tobacco Use Types Packs/Day Years Used Date Smoking Tobacco: Former Smokeless Tobacco: Never Alcohol Use Standard Drinks/Week Comments No 0 (1 standard drink = 0.6 oz pur e alcohol) Sex and Gender Information Value Date Recorded Sex Assigned at Not on file 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 Gender Identity Not on file Sexual Orientation Not on file documented as of this encounter Plan of Treatment Not on file documented as of this encounter Procedures Procedure Name Priority Date/Time Associated Diagnosis Comments SCAN - LABS 02/27/2017 11:05 AM CDT documented in this encounter Results * SCAN - LABS (02/27/2017 11:05 AM CDT) Brent King MD Final Result documented in this encounter Visit Diagnoses Not on filedocumented in this encounter Additional Health Concerns Infection Onset Date Last Indicated Resolved Time COVID: Suspected 08/14/2022 08/14/2022 08/14/2022 8:58 PM CDT COVID19 08/14/2022 08/14/2022 08/17/2022 2:13 PM CDT COVID: Recovered 08/17/2022 08/17/2022 11/15/2022 3:05 AM CDT documented as of this encounter Care Teams C D Still Operator Relationship Specialty Start Date End Date Brent King MD [address] [place] [address] PCP - General 12/26/16 03/20/17 Hermann Sauceda MD [address] [place] [address] PCP - General Ophthalmology 03/21/17 07/19/17 Brent King MD [address] [place] [address] PCP - General Infectious Diseases 07/20/17 Abel Lauren MD [address] [place] [address] Consulting Physician Endocrinology Diabetes & Metabolism 01/20/17 Hermann Wellington MD [address] [place] [address] Consulting Physician Nephrology 04/07/17 08/24/21 Raj Regalado MD [address] [place] [address] Consulting Physician Vascular Surgery 04/07/17 Franco Melendez MD [address] [place] [address] Consulting Physician Orthopedic Surgery 08/04/15 2 Libertad Neal MD [address] [facility] [address] [place] [address] Consulting Physician Nephrology 10/03/19 Hermann Sauceda MD [address] [place] [address] Consulting Physician Ophthalmology 04/07/20 Carlie Torres MD [address] [place] [address] [address] [facility] 10 [place] [address] Referring Physician Preventative Medicine 09/29/20 Franco Melendez MD [address] [facility] [address] [place] [address] Consulting Physician Orthopedic Surgery 08/25/21 Mitul Gilliam MD [address] [facility] [address] [place] [address] Consulting Physician Ophthalmology 10/17/21 Libertad Neal MD [address] [facility] [address] [place] [address] Consulting Physician Nephrology 10/21/21 10/21/21 Erik Charles MD [address] [facility] [address] [place] [address] Consulting Physician Podiatry 04/26/23 documented as of this encounter
[2024-11-26 19:27] LABS: Hematocrit 35.6 % (42.0-52.0); Hemoglobin 10.8 g/dL (14.0-18.0); Immature Granulocyte Percent A 0.4 % (0-0.5); Lymphocytes Absolute Auto 2.72 K/mm3 (0.9-3.2); Mean Corpuscular HGB Conc 30.3 g/dl (32-36); Mean Corpuscular Hemoglobin 28.5 pg (26-34); Mean Corpuscular Volume 93.9 fl (80-100); Nucleated Red Blood Cells Absolute Auto 0.000 K/mm3 (0.0-0.012); Nucleated Red Blood Cells Perc 0.0 % (0.0-0.2); Platelet Count Result 288 k/mm3 (150-375); Red Blood Count 3.79 M/mm3 (4.6-6.20); White Blood Count 10.2 K/mm3 (4.5-10.0)
[2024-11-26 19:52] LABS: Total Protein Urine Random 20 mg/dL; Ur Ttl Prot Creatinine Ratio 0.15 mg/mg (0-0.20)
[2024-11-26 20:21] LABS: Add Urine Microscopic? YES; Appearance Urine Clear (Clear); Glucose Urine UA 3+ mg/dL (Negative); Leukocyte Esterase Ur Negative LEU/UL (Negative); Nitrate Urine Negative (Negative); Non Pathogenic Casts 0-2; Specific Grav Ur 1.026 (1.001-1.035)
[2024-11-26 21:11] LABS: Albumin Level 3.9 g/dL (3.5-5.1); Anion Gap 9 mmol/L (4-12); Blood Urea Nitrogen 32 mg/dL (9-20); Calcium 9.3 mg/dL (8.4-10.2); Carbon Dioxide 26 mmol/L (22-30); Chloride 100 mmol/L (98-107); Estimated Glomerular Filt Rate 39; Glucose 392 mg/dL (65-110); Potassium 4.7 mmol/L (3.4-5.0); Sodium 135 mmol/L (137-145)
== END 2024-11-26 13:37 | disposition home or self-care (01) ==
LOC: ANHBWCLAB 13:58
PROVIDERS: PCP Internal Medicine Infectious Disease; Visit Provider Internal Medicine Nephrology
DX: N18.30 Chronic kidney disease, stage 3 unspecified (principal); D63.1 Anemia in chronic kidney disease
CPT/HCPCS: 36415; 80069; 81001; 82570; 84156; 85025

== ENCOUNTER 2025-04-22 07:22 | Emergency (ER) | payer MEDICARE, SELFPAY ==
[2025-04-22] VITALS (28 sets, daily range): BP systolic 70–154; BP diastolic 50–85; PULSE 95–120; RESP 16–30; TEMP 34.2–36.4; O2SAT 89–100
--- NOTE | ~2025-04-22 | CT_ITS ---
EXAMINATION: CT brain wo lamonte, 04/22/2025 9:40 [employer] SERV[employer]IATE HISTORY: AMS COMPARISON: No comparisons available. Technique: Axial images obtained of the brain without contrast. One or more of the following dose reduction techniques were used: automated exposure control, adjustment of the mA and/or kV according to patient size, use of iterative reconstruction technique. Findings: No acute infarct or parenchymal hemorrhage. No abnormal mass or mass effect. No midline shift. No extra-axial fluid collections. No hydrocephalus. Mastoid air cells unremarkable. Minimal maxillary sinusitis No acute fracture. No significant facial or scalp soft tissue swelling evident. No radiopaque foreign body is seen. Impression: 1.No acute intracranial abnormality. Reviewed, dictated and finalized at location P. [employer] SERVICE ASSOCIATE Impression: 1.No acute intracranial abnormality.
--- NOTE | ~2025-04-22 | XR_ITS ---
EXAMINATION: XR chest ET placement COMPARISON: No comparisons available. HISTORY: confirm ET placement/ NEW PICC LINE FINDINGS: Bilateral small infiltrates. No pneumothorax. Heart is normal size. Mediastinal and hilar contours are within normal limits. Bony thorax no acute abnormality. Miscellaneous: Right PICC line in the SVC, there is a piece of tubing possibly a nasogastric tube which appears to terminate in the proximal right bronchus, correlate clinically. Impression: 1. Support apparatus as above. There is a piece of tubing terminating in the proximal right bronchus, correlate clinically, repositioning recommended Reviewed, dictated and finalized at location P. SETTER Impression: 1. Support apparatus as above. There is a piece of tubing terminating in the pr oximal right bronchus, correlate clinically, repositioning recommended
[2025-04-22] MEDS: NOREPINEPHRINE 8 MG/D5W 250 ML 8 MG/250 ML BAG 18.75 MG IV CONT (07:48)
--- NOTE | 2025-04-22 07:51 | ECG_ITS ---
Test Date: 2025-04-22 08:12:10 Measurements Intervals [place] Rate: 116 P: 11 [place]: 176 QRS: 64 QRSD: 94 T: 103 QT: 348 QTc: 484 Interpretive Statements SINUS TACHYCARDIA WITH OCCASIONAL SUPRAVENTRICULAR PREMATURE COMPLEXES NONSPECIFIC ST & T-WAVE ABNORMALITY- DIFFUSE LEADS BASELINE ARTIFACT- I, II, III, AVR, AVL, AVF, V1, V3-V6 ABNORMAL ECG No previous ECG available for comparison Electronically Signed On 04-22-2025 08:25:25 [place] by Kevin Peck D.O.
[2025-04-22 08:00] LABS: Alveolar/Arterial O2 Gradient 563.9 mmHg; Carboxyhemoglobin 0.5 % THb (0-2.0); Fractional Inspired Oxygen 100 %; HCO3 ABG 21.9 mEq/l (22.0-26.0); Methemoglobin ABG 0.1 %THb (0-1.5); Oxygen Content ABG 15.8 %vol (16.0-22.0); Oxygen Saturation ABG 97.9 % (95.0-100.0); PCO2 ABG 38.9 mmHg (35.0-45.0); PO2 ABG 110.2 mmHg (80.0-100.0); PO2 FiO2 Ratio Arterial Blood 1.10 %; Reduced Hemoglobin 1.7 %THb (0-5.0)
[2025-04-22 08:03] LABS: Hematocrit 32.8 % (42.0-52.0); Hemoglobin 9.9 g/dL (14.0-18.0); Immature Granulocyte Percent A 0.8 % (0-0.5); Lymphocytes Absolute Auto 2.80 K/mm3 (0.9-3.2); Mean Corpuscular HGB Conc 30.2 g/dl (32-36); Mean Corpuscular Hemoglobin 27.9 pg (26-34); Mean Corpuscular Volume 92.4 fl (80-100); Nucleated Red Blood Cells Absolute Auto 0.020 K/mm3 (0.0-0.012); Nucleated Red Blood Cells Perc 0.2 % (0.0-0.2); Platelet Count Result 372 k/mm3 (150-375); Red Blood Count 3.55 M/mm3 (4.6-6.20); White Blood Count 12.0 K/mm3 (4.5-10.0)
--- OUTSIDE RECORDS SUMMARY | 2025-04-22 08:06 | XMS_ITS | Encounter Summary ---
Author Organization [facility] Address [address] [place] [address] Phone Care Team Providers Care Roll Forming Machine Operator Name Role Phone Brent King MD Primary Care Provider [phone] Abel Lauren MD Unavailable [phone] Hermann Wellington MD Unavailable [phone] Raj Regalado MD Unavailable [phone] Hermann Sauceda MD Primary Care Provider Franco Melendez MD Unavailable [phone] Brent King MD Primary Care Provider [phone] Libertad Nela MD Unavailable +[phone] Hermann Sauceda MD Unavailable [phone] Carlie Torres MD Unavailable [phone] Franco Melendez MD Unavailable [phone] Mitul Gilliam MD Unavailable [phone] Libertad Neal MD Unavailable [phone] Erik Charles MD Unavailable [phone] Reason for Referral * Consultation (Routine) - Closed Specialty Diagnoses / Procedures Referred By Meng t Referred To Contact Cardiology Diagnoses Other specified peripheral vascular diseases (CODE) Brent King MD Phone: tel: fax: Raj Regalado MD Phone: tel: fax: Referral ID Status Reason Start Date Expiration Date V isits Requested Visits Authorized [id number] Closed Specialty Services Required 02/16/2017 08/16/2017 12 12 Comments REF#[id number] 02/16/17 TO 08/16/[address]Brent Regalado Encounter Details Date Type Department Care Team (Late st Contact Info) Description 02/21/2017 Orders Only [facility] [address] [place] [address] Brent King MD [address] [place] [address] Other specified peripheral vascular diseases (CODE) (CMS/HCC) (Primary Dx) Social History Tobacco Use Types Packs/Day Years Used Date Smoking Tobacco: Former Smokeless Tobacco: Never Alcohol Use Standard Drinks/Week Comments No 0 (1 standard drink = 0.6 oz pur e alcohol) Sex and Gender Information Value Date Recorded Sex Assigned at Not on file 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 Gender Identity Not on file Sexual Orientation [...] documented as of this encounter Care Teams Roll Forming Machine Operator Relationship Specialty Start Date End Date Brent King MD [address] [place] [address] PCP - General 12/26/16 03/20/17 Hermann Sauceda MD [address] [place] [address] PCP - General Ophthalmology 03/21/17 07/19/17 Brent King MD [address] [place] [address] PCP - General Infectious Diseases 07/20/17 Abel Lauren MD [address] [place] [address] Consulting Physician Endocrinology Diabetes & Metabolism 01/20/17 Hermann Wellington MD [address] [place] [address] Consulting Physician Nephrology 04/07/17 08/24/21 Raj Regalado MD [address] [place] [address] Consulting Physician Vascular Surgery 04/07/17 Franco Melendez MD [address] [place] [address] Consulting Physician Orthopedic Surgery 08/04/15 2 Libertad Neal MD [address] [address] Consulting Physician Nephrology 10/03/19 Hermann Sauceda MD [address] [place] [address] Consulting Physician Ophthalmology 04/07/20 Carlie Torres MD [address] [place] [address] [address] [place] [address] Referring Physician Preventative Medicine 09/29/20 Franco Melendez MD [address] [place] [address] Consulting Physician Orthopedic Surgery 08/25/21 Mitul Gilliam MD [address] [facility] [address] [place] [address] Consulting Physician Ophthalmology 10/17/21 Libertad Neal MD [address] [place] [address] Consulting Physician Nephrology 10/21/21 10/21/21 Erik Charles MD [address] [place] [address] Consulting Physician Wound Care 04/26/23 documented as of this encounter
--- OUTSIDE RECORDS SUMMARY | 2025-04-22 08:06 | XMS_ITS | Encounter Summary ---
Author Organization [facility] Address [address] [place] [address] Care Team Providers Care Dining Car Waiter/Waitress Name Role Phone Abel Lauren MD Unavailable [phone] Raj Regalado MD Unavailable [phone] Brent King MD Primary Care Provider [phone] Libertad Neal MD Unavailable [phone] Hermann Sauceda MD Unavailable [phone] Carlie Torres MD Unavailable [phone] Frnaco Melendez MD Unavailable [phone] Mitul Gilliam MD Unavailable [phone] Erik Charles MD Unavailable [phone] Encounter Details Date Type Department Care Team (Late st Contact Info) Description 12/17/2024 Orders Only [facility] [address] [place] [address] Scanning, Provider Social History Tobacco Use Types Packs/Day Years Used Date Smoking Tobacco: Former Cigarettes Q uit: 1965 Cigars Smokeless Tobacco: Never Alcohol Use Standard Drinks/Week Comments No 0 (1 standard drink = 0.6 oz pur e alcohol) Social Connection and Isolation Panel Answer Date Recorded In a typical week, how many times do you talk on the phone with family, friends, or neighbors? More than three times a week 08/16/2022 How often do you get togethe r with friends or relatives? More than three times a week 08/16/2022 How often do you attend chur or taoism services? 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 Gender Identity Not on file Sexual Orientation Not on file documented as of this encounter Functional Status documented as of this encounter Plan of Treatment Not on file documented as of this encounter Procedures Procedure Name Priority Date/Time Associated Diagnosis Comments SCAN - LABS 12/17/2024 documented in this encounter Results * SCAN - LABS (12/17/2024) us Provider Scanning Final Result documented in this encounter Visit Diagnoses Not on filedocumented in this encounter Care Teams Dining Car Waiter/Waitress Relationship Specialty Start Date End Date Brent King MD [address] [place] [address] PCP - General Infectious Diseases 07/20/17 Abel Lauren MD [address] [place], [place] [address] Consulting Physician Endocrinology Diabetes & Metabolism 01/20/17 Raj Regalado MD [address] [place] [address] Consulting Physician Vascular Surgery 04/07/17 Libertad Neal MD [address] [place] [address] Consulting Physician Nephrology 10/03/19 Hermann Sauceda MD [address] [facility] [address] [place] [address] Consulting Physician Ophthalmology 04/07/20 Carlie Torres MD [address] [place] [address] [address] ANASTAC[address] [place] [address] Referring Physician Preventative Medicine 09/29/20 Franco Melendez MD [address] [place] [address] Consulting Physician Orthopedic Surgery 08/25/21 Mitul Gilliam MD [address] [place] [address] Consulting Physician Ophthalmology 10/17/21 Erik Charles MD [address] [facility] [address] [place] [address] Consulting Physician Wound Care 04/26/23 documented as of this encounter
--- OUTSIDE RECORDS SUMMARY | 2025-04-22 08:06 | XMS_ITS | Clinical Summary ---
Author Organization [facility] Address [address] [place] [address] Phone Care Team Providers Care Photo Retoucher Name Role Phone Brent King MD Primary Care Provider [phone] Social History Tobacco Use Types Packs/Day Years [...] 1992 Zoster Immunization (1 of 2) 1992 Medicare Initial AWV G0438 12/20/2007 Respiratory Syncytial Virus (RSV) Immunization (Adult) (1 - 1-dose 75+ series) 2017 Influenza Immunization (#1) 01/19/202502/19, 05/10/2011 SARS-COV-2 Immunization ( season) 2025 05/28/2021, 10/23/2020, 10/02/2020 Hepatitis B Immunization Aged Out No longer [...] to complete this topic Insurance MEDICARE C [facility] on file Care Teams Photo Retoucher Relationship Specialty Start Date End Date Brent King MD [address] [place] [address] PCP - General Infectious Disease 08/30/16
--- OUTSIDE RECORDS SUMMARY | 2025-04-22 08:06 | XMS_ITS | Encounter Summary ---
Author Organization [facility] Address [address] [place] [address] Phone Care Team Providers Care Abatement Worker Name Role Phone Brent King MD Primary Care Provider [phone] Abel Lauren MD Unavailable [phone] Hermann Wellington MD Unavailable [phone] Raj Regalado MD Unavailable [phone] Hermann Sauceda MD Primary Care Provider Franco Melendez MD Unavailable [phone] Brent King MD Primary Care Provider [phone] Libertad Neal MD Unavailable [phone] Hermann Sauceda MD Unavailable [phone] Carlie Torres MD Unavailable [phone] Franco Melendez MD Unavailable [phone] Mitul Gilliam MD Unavailable +[phone] Libertad Neal MD Unavailable +[phone] Erik Charles MD Unavailable [phone] Encounter Details Date Type Department Care Team (Late st Contact Info) Description 02/20/2017 Orders Only [facility] [address] [place] [address] Brent King MD [address] [place] [address] Examination of eyes and vision (Primary Dx) Social History Tobacco Use Types Packs/Day Years Used Date Smoking Tobacco: Former Smokeless Tobacco: Never Alcohol Use Standard Drinks/Week Comments No 0 (1 standard drink = 0.6 oz pur e alcohol) Sex and Gender Information Value Date Recorded Sex Assigned at Not on file 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 Gender Identity Not on file Sexual Orientation [...] documented as of this encounter Care Teams Abatement Worker Relationship Specialty Start Date End Date Brent King MD [address] [place] [address] PCP - General 12/26/16 03/20/17 Hermann Sauceda MD [address] [place] [address] PCP - General Ophthalmology 03/21/17 07/19/17 Brent King MD [address] [place] [address] PCP - General Infectious Diseases 07/20/17 Abel Lauren MD [address] [facility] [address] Consulting Physician Endocrinology Diabetes & Metabolism 01/20/17 Hermann Wellington MD [address] [facility] [address] Consulting Physician Nephrology 04/07/17 08/24/21 Raj Regalado MD [address] [facility] [address] Consulting Physician Vascular Surgery 04/07/17 Franco Melendez MD [address] [facility] [address] Consulting Physician Orthopedic Surgery 08/04/15 Libertad Neal MD [address] [place] [address] Consulting Physician Nephrology 10/03/19 Hermann Sauceda MD [address] [facility] [address] Consulting Physician Ophthalmology 04/07/20 Carlie Torres MD [address] [place] [address] [address] [place] [address] Referring Physician Preventative Medicine 09/29/20 Franco Melendez MD [address] [facility] [address] Consulting Physician Orthopedic Surgery 08/25/21 Mitul Gilliam MD [address] [facility] [address] [place] [address] Consulting Physician Ophthalmology 10/17/21 Libertad Neal MD [address] [facility] [address] [place] [address] Consulting Physician Nephrology 10/21/21 10/21/21 Erik Charles MD [address] [facility] [address] [place] [address] Consulting Physician Wound Care 04/26/23 documented as of this encounter
--- OUTSIDE RECORDS SUMMARY | 2025-04-22 08:06 | XMS_ITS | Encounter Summary ---
Author Organization [facility] Address [address] [place] [address] Phone Care Team Providers Care Plate Take Out Worker Name Role Phone Abel Lauren MD Unavailable [phone] Hermann Wellington MD Unavailable [phone] Raj Regalado MD Unavailable [phone] Hermann Sauceda MD Primary Care Provider Franco Melendez MD Unavailable [phone] Brent King MD Primary Care Provider [phone] Libertad Neal MD Unavailable [phone] Hermann Sauceda MD Unavailable [phone] Carlie Torres MD Unavailable [phone] Franco Melendez MD Unavailable [phone] Mitul Gilliam MD Unavailable [phone] Libertad Neal MD Unavailable +[phone] Erik Charles MD Unavailable [phone] Encounter Details Date Type Department Care Team (Late st Contact Info) Description 07/17/2017 Orders Only [facility] [address] [place] [address] Brent King MD [address] [place] [address] Social History Tobacco Use Types Packs/Day Years Used Date Smoking Tobacco: Former Smokeless Tobacco: Never Alcohol Use Standard Drinks/Week Comments No 0 (1 standard drink = 0.6 oz pur e alcohol) Sex and Gender Information Value Date Recorded Sex Assigned at Not on file Legal Sex Male 11:17 AM ALTERATION HAND Gender Identity Not on file Sexual Orientation Not on file documented as of this encounter Functional Status documented as of this encounter Plan of Treatment Not on file documented as of this encounter Procedures Procedure Name Priority Date/Time Associated Diagnosis Comments SCAN - LABS 07/17/2017 10:43 AM ALTERATION HAND documented in this encounter Results * SCAN - LABS (07/17/2017 10:43 AM ALTERATION HAND) Brent King MD Final Result documented in this encounter Visit Diagnoses Not on filedocumented in this encounter Additional Health Concerns Infection Onset Date Last Indicated Resolved Time COVID: Suspected 08/14/2022 08/14/2022 08/14/2022 8:58 PM CDT COVID19 08/14/2022 08/14/2022 08/17/2022 2:13 PM CDT COVID: Recovered 08/17/2022 08/17/2022 11/15/2022 3:05 AM CDT documented as of this encounter Care Teams Plate Take Out Worker Relationship Specialty Start Date End Date Hermann Sauceda MD [address] [place] [address] PCP - General Ophthalmology 03/21/17 07/19/17 Brent King MD [address] [place] [address] PCP - General Infectious Diseases 07/20/17 Abel Lauren MD [address] [facility] [address] Consulting Physician Endocrinology Diabetes & Metabolism 01/20/17 Hermann Wellington MD [address] [facility] [address] Consulting Physician Nephrology 04/07/17 08/24/21 Raj Regalado MD [address] [facility] [address] Consulting Physician Vascular Surgery 04/07/17 Franco Melendez MD [address] [facility] [address] Consulting Physician Orthopedic Surgery 08/04/15 Libertad Neal MD [address] [place] [address] Consulting Physician Nephrology 10/03/19 Hermann Sauceda MD [address] [facility] [address] Consulting Physician Ophthalmology 04/07/20 Carlie Torres MD [address] [place] [address] [address] [place] [address] Referring Physician Preventative Medicine 09/29/20 Franco Melendez MD [address] [facility] [address] Consulting Physician Orthopedic Surgery 08/25/21 Mitul Gilliam MD [address] [facility] [address] [place] [address] Consulting Physician Ophthalmology 10/17/21 Libertad Neal MD [address] [facility] [address] [place] [address] Consulting Physician Nephrology 10/21/21 10/21/21 Erik Charles MD [address] [facility] [address] [place] [address] Consulting Physician Wound Care 04/26/23 documented as of this encounter
--- OUTSIDE RECORDS SUMMARY | 2025-04-22 08:06 | XMS_ITS | Encounter Summary ---
Author Organization [facility] Address [address] [place] [address] Phone Care Team Providers Care Reed Press Feeder Name Role Phone Abel Lauren MD Unavailable [phone] Hermann Wellington MD Unavailable [phone] Raj Regalado MD Unavailable [phone] Hermann Sauceda MD Primary Care Provider Franco Melendez MD Unavailable [phone] Brent King MD Primary Care Provider [phone] Libertad Neal MD Unavailable [phone] Hermann Sauceda MD Unavailable [phone] Carlie Torres MD Unavailable [phone] Franco Melendez MD Unavailable [phone] Mitul Gilliam MD Unavailable [phone] Libertad Neal MD Unavailable +[phone] Erik Charles MD Unavailable [phone] Encounter Details Date Type Department Care Team (Late st Contact Info) Description 07/16/2017 Orders Only [facility] [address] [place] [address] Brent King MD [address] [place] [address] Social History Tobacco Use Types Packs/Day Years Used Date Smoking Tobacco: Former Smokeless Tobacco: Never Alcohol Use Standard Drinks/Week Comments No 0 (1 standard drink = 0.6 oz pur e alcohol) Sex and Gender Information Value Date Recorded Sex Assigned at Not on file Legal Sex Male 11:17 AM MANAGER APPLICATION DEVELOPMENT Gender Identity Not on file Sexual Orientation Not on file documented as of this encounter Plan of Treatment Not on file documented as of this encounter Procedures Procedure Name Priority Date/Time Associated Diagnosis Comments SCAN - LABS 07/16/2017 3:10 PM MANAGER APPLICATION DEVELOPMENT documented in this encounter Results * SCAN - LABS (07/16/2017 3:10 PM MANAGER APPLICATION DEVELOPMENT) Brent King MD Final Result documented in this encounter Visit Diagnoses Not on filedocumented in this encounter Additional Health Concerns Infection Onset Date Last Indicated Resolved Time COVID: Suspected 08/14/2022 08/14/2022 08/14/2022 8:58 PM CDT COVID19 08/14/2022 08/14/2022 08/17/2022 2:13 PM CDT COVID: Recovered 08/17/2022 08/17/2022 11/15/2022 3:05 AM CDT documented as of this encounter Care Teams Reed Press Feeder Relationship Specialty Start Date End Date Hermann Sauceda MD [address] [place] [address] PCP - General Ophthalmology 03/21/17 07/19/17 Brent King MD [address] [place] [address] PCP - General Infectious Diseases 07/20/17 Abel Lauren MD [address] [place] [address] Consulting Physician Endocrinology Diabetes & Metabolism 01/20/17 Hermann Wellington MD [address] [place] [address] Consulting Physician Nephrology 04/07/17 08/24/21 Raj Regalado MD [address] [place] [address] Consulting Physician Vascular Surgery 04/07/17 Franco Melendez MD [address] [place] [address] Consulting Physician Orthopedic Surgery 08/04/15 Libertad Neal MD [address] [facility] [address] [place] [address] Consulting Physician Nephrology 10/03/19 Hermann Sauceda MD 222 [place] [address] Consulting Physician Ophthalmology 04/07/20 Carlie Torres MD [address] [place] [address] [address] [place] [address] Referring Physician Preventative Medicine 09/29/20 Franco Melendez MD [address] [facility] [address] [place] [address] Consulting Physician Orthopedic Surgery 08/25/21 Mitul Gilliam MD [address] [facility] [address] [place] [address] Consulting Physician Ophthalmology 10/17/21 Libertad Neal MD [address] [facility] [address] [place] [address] Consulting Physician Nephrology 10/21/21 10/21/21 Erik Charles MD [address] [facility] [address] [place] [address] Consulting Physician Wound Care 04/26/23 documented as of this encounter
--- OUTSIDE RECORDS SUMMARY | 2025-04-22 08:06 | XMS_ITS | Encounter Summary ---
Author Organization [facility] Address [address] [place] [address] Phone Care Team Providers Care Transfer Station Attendant Name Role Phone Abel Lauren MD Unavailable [phone] Hermann Wellington MD Unavailable [phone] Raj Regalado MD Unavailable [phone] Hermann Sauceda MD Primary Care Provider Franco Melendez MD Unavailable [phone] Brent King MD Primary Care Provider [phone] Libertad Neal MD Unavailable [phone] Hermann Sauceda MD Unavailable [phone] Carlie Torres MD Unavailable [phone] Franco Melendez MD Unavailable [phone] Mitul Gilliam MD Unavailable [phone] Libertad Neal MD Unavailable +[phone] Erik Charles MD Unavailable [phone] Encounter Details Date Type Department Care Team (Late st Contact Info) Description 04/03/2017 Orders Only [facility] [address] [place] [address] Brent King MD [address] [place] [address] Social History Tobacco Use Types Packs/Day Years Used Date Smoking Tobacco: Former Smokeless Tobacco: Never Alcohol Use Standard Drinks/Week Comments No 0 (1 standard drink = 0.6 oz pur e alcohol) Sex and Gender Information Value Date Recorded Sex Assigned at Not on file 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 Gender Identity Not on file Sexual Orientation Not on file documented as of this encounter Plan of Treatment Not on file documented as of this encounter Procedures Procedure Name Priority Date/Time Associated Diagnosis Comments SCAN - LABS 04/03/2017 4:09 PM HELPER CHICKEN FARM documented in this encounter Results * SCAN - LABS (04/03/2017 4:09 PM HELPER CH[employer] FARM) Brent King MD Final Result documented in this encounter Visit Diagnoses Not on filedocumented in this encounter Additional Health Concerns Infection Onset Date Last Indicated Resolved Time COVID: Suspected 08/14/2022 08/14/2022 08/14/2022 8:58 PM CDT COVID19 08/14/2022 08/14/2022 08/17/2022 2:13 PM CDT COVID: Recovered 08/17/2022 08/17/2022 11/15/2022 3:05 AM CDT documented as of this encounter Care Teams Transfer Station Attendant Relationship Specialty Start Date End Date Hermann Sauceda MD [address] [email or web address] [address] PCP - General Ophthalmology 03/21/17 07/19/17 Brent King MD [address] [place] [address] PCP - General Infectious Diseases 07/20/17 Abel Lauren MD [address] [place] [address] Consulting Physician Endocrinology Diabetes & Metabolism 01/20/17 Hermann Wellington MD [address] [place] [address] Consulting Physician Nephrology 04/07/17 08/24/21 Raj Regalado MD [address] [place] [address] Consulting Physician Vascular Surgery 04/07/17 Franco Melendez MD [address] [place] [address] Consulting Physician Orthopedic Surgery 08/04/15 Libertad Neal MD [address] [facility] [address] [place] [address] Consulting Physician Nephrology 10/03/19 Hermann Sauceda MD [address] [place] [address] Consulting Physician Ophthalmology 04/07/20 Carlie Torres MD [address] [place] [address] [address] [place] [address] Referring Physician Preventative Medicine 09/29/20 Franco Melendez MD [address] [facility] [address] [place] [address] Consulting Physician Orthopedic Surgery 08/25/21 Mitul Gilliam MD [address] [facility] [address] [place] [address] Consulting Physician Ophthalmology 10/17/21 Libertad Neal MD [address] [facility] [address] [place] [address] Consulting Physician Nephrology 10/21/21 10/21/21 Erik Charles MD [address] [facility] [address] [place] [address] Consulting Physician Wound Care 04/26/23 documented as of this encounter
--- OUTSIDE RECORDS SUMMARY | 2025-04-22 08:06 | XMS_ITS | Clinical Summary ---
Author Organization [facility] Address [facility] [place] [address] Care Team Providers Care Garage Manager Name Role Phone Unavailable Primary Care Provider [...] 75+ series) 2017 COVID-19 Vaccine ( - 2024-2 6 season) 2025 Influenza Adult (#1) 2025 Hepatitis A Vaccines Aged Out No long er eligible based on patient's age to complete this topic Meningococcal B Vaccine Aged Out No l onger eligible based on patient's age to complete this topic Meningococcal Vaccine Aged Out No benjamin cory eligible based on patient's age to complete this topic RSV Immunizations Under 20 Months Aged Out No longer eligible based on patient's age to complete this topic
--- OUTSIDE RECORDS SUMMARY | 2025-04-22 08:06 | XMS_ITS | Encounter Summary ---
Author Organization [place] [facility] Address [address] [place] [address] Phone Care Team Providers Care Box Lidder Name Role Phone Brent King MD Primary Care Provider [phone] Abel Lauren MD Unavailable [phone] Hermann Wellington MD Unavailable [phone] Raj Regalado MD Unavailable [phone] Hermann Sauceda MD Primary Care Provider Franco Melendez MD Unavailable [phone] Brent King MD Primary Care Provider [phone] Libertad Neal MD Unavailable [phone] Hermann Sauceda MD Unavailable [phone] Carlie Torres MD Unavailable [phone] Franco Melendez MD Unavailable [phone] Mitul Gilliam MD Unavailable [phone] Libertad Neal MD Unavailable [phone] Erik Charles MD Unavailable [phone] Encounter Details Date Type Department Care Team (Late st Contact Info) Description 02/16/2017 Orders Only [facility] [address] [place] [address] Brent King MD [address] [place] [address] Diabetic mononeuropathy simplex (HCC) (Primary Dx) Social History Tobacco Use Types Packs/Day Years Used Date Smoking Tobacco: Former Smokeless Tobacco: Never Alcohol Use Standard Drinks/Week Comments No 0 (1 standard drink = 0.6 oz pur e alcohol) Sex and Gender Information Value Date Recorded Sex Assigned at Not on file Legal Sex Male 11:17 AM MANAGER DOCUMENT Gender Identity Not on file Sexual Orientation [...] documented as of this encounter Care Teams Box Lidder Relationship Specialty Start Date End Date Brent King MD [address] [place] [address] PCP - General 12/26/16 03/20/17 Hermann Sauceda MD [address] [place] [address] PCP - General Ophthalmology 03/21/17 07/19/17 Brent King MD [address] [place] [address] PCP - General Infectious Diseases 07/20/17 Abel Lauren MD [address] [place], [place] [id number] Consulting Physician Endocrinology Diabetes & Metabolism 01/20/17 Hermann [place] MD [address] [place] [address] Consulting Physician Nephrology 04/07/17 08/24/21 Raj Regalado MD [address] [place], [place] [id number] Consulting Physician Vascular Surgery 04/07/17 Franco Melendez MD [address] [place] [address] Consulting Physician Orthopedic Surgery 08/04/15 2 Libertad Neal MD [address] [facility] [address] [place] [address] Consulting Physician Nephrology 10/03/19 Hermann Sauceda MD [address] [place] [address] Consulting Physician Ophthalmology 04/07/20 Carlie Torres MD [address] [place] [address] [address] [facility] [facility] [address] [place], [place] [id number] Referring Physician Preventative Medicine 09/29/20 Franco Melendez MD [address] [facility] [id number] [place] [address] Consulting Physician Orthopedic Surgery 08/25/21 Mitul Gilliam MD [address] [facility] [address] [place] [address] Consulting Physician Ophthalmology 10/17/21 Libertad Neal MD [address] [facility] [address] [place] [address] Consulting Physician Nephrology 10/21/21 10/21/21 Erik Charles MD [address] [facility] [address] [place] [address] Consulting Physician Wound Care 04/26/23 documented as of this encounter
--- OUTSIDE RECORDS SUMMARY | 2025-04-22 08:06 | XMS_ITS | Clinical Summary ---
Author Organization [facility] Address [address] [place] [address] Care Team Providers Care Memorial Counselor Name Role Phone Abel Lauren MD Unavailable [phone] Raj Regalado MD Unavailable [phone] Brent King MD Primary Care Provider [phone] Libertad Neal MD Unavailable Hermann Sauceda MD Unavailable Carlie Torres MD Unavailable [phone] Franco Melendez MD Unavailable [phone] Mitul Gilliam MD Unavailable [phone] Erik Charles MD Unavailable [phone] Allergies Active Allergy Reactions Criticality Noted Date Comments Linezolid Diarrhea Low Reaction: diarrhea, Medications insulin lispro (HumaLOG) 100 unit/mL injection inject per sliding scale 3-4 times daily 0 vial 0 7 Active pravastatin (PRAVACHOL) 40 mg tablet take 1 tablet by oral route every day 0 0 7 Active aspirin 81 mg tablet take 1 tablet by oral route every day 0 0 7 Active BD INSULIN PEN NEEDLE UF SHORT 31 gauge x 5/16 needle USE WITH INSULIN THREE TIMES A DAY 4 7 Active OneTouch Delica Plus Lancet 33 gauge misc 0 Active OneTouch Verio test strips strip 0 Active cholecalciferol (VITAMIN D-3) 25 mcg (1,000 unit) tablet Take 1 tablet (1,000 Units total) by mouth every other day Active glimepiride (AMARYL) 4 mg tabletIndications: Type 2 diabetes mellitus with diabetic peripheral angiopathy without gangrene, with long-term current use of insulin (HCC) TAKE 1 TABLET BY MOUTH DAILY BEFORE BREAKFAST 100 tablet 1 5 Active multivitamin tablet Take 1 tablet by mouth daily 5 Active zinc gluconate 50 mg tablet Take 1 tablet (50 mg total) by mouth daily 5 Active Lactobacillus acidophilus capsule Take 1 capsule by mouth 2 (two) times a day 5 Active levothyroxine (SYNTHROID) 25 mcg tabletIndications: Adult hypothyroidism TAKE 1 TABLET BY MOUTH EARLY IN THE MORNING BEFORE BREAKFAST 100 tablet 1 5 Active gabapentin (NEURONTIN) 100 mg capsuleIndications :Pain in both lower extremities Take 1 capsule (100 mg total) by mouth daily 100 capsule 2 5 Active lisinopriL (PRINIVIL,ZESTRIL) 5 mg tabletIndications: Hypertension associated with type 2 diabetes mellitus (HCC) Take 1.5 tablets (7.5 mg total) by mouth daily 5 Active Active Problems Problem Noted Date Diagnosed Date Nevus of cheek 10/31/2024 Assessment & Plan (11/07/2024 10:49 PM CDT): Images from the original note were not included. This appears to be likely benign and we will monitor clinically with serial exams and comparison imaging. Diabetic ulcer of right foot 10/31/2024 Assessment & Plan (02/14/2025 10:23 AM CDT): Type 2 diabetes mellitus with right foot ulcer and diabetic neuropathy, chronic, uncontrolled in that it does not show signs of healing although there is no acute complication. Right foot ulcer with a deep punched out lesion underlying the mid metatarsal head area, no evidence of active infection. Blood sugars are reasonably well controlled, ranging from 95 to 150 mg/dL. Chronic irritation at the tip of the right hallux, but no ulceration. Diabetic neuropathy present. - Continue glimepiride 4 mg daily and insulin lispro 100 mg 3 to 4 times daily. - Continue gabapentin 100 mg daily for neuropathy. - Follow up in three months or sooner if needed. - Continue follow-up with Wound Care at [facility], Dr. Charles. Assessment & Plan (12/18/2024 5:25 AM CDT): See Barbara HPI/AP. Assessment & Plan (12/07/2024 5:44 PM CDT): Images from the original note were not included. See Barbara HPI/AP. Assessment & Plan (11/07/2024 10:39 PM CDT): Images from the original note were not included. See Barbara HPI/AP. Abrasion of skin 10/31/2024 Assessment & Plan (12/03/2024 1:39 PM CDT): See Barbara HPI/AP. Assessment & Plan (11/07/2024 10:39 PM CDT): Images from the original note were not included. See Barbara HPI/AP. Adult hypothyroidism 05/05/2024 Assessment & Plan (02/14/2025 10:35 AM CDT): Images from the original note were not included. Hypothyroidism, chronic, present for more than a year, comanaged with endocrinology. - Continue levothyroxine 25 mcg daily. - Follow up in three months or sooner if needed. Lower extremity edema 07/11/2021 Assessment & Plan (07/19/2021 12:13 PM INSIDE WIREMAN): Patient returns for follow up on RLE [...] needed. Assessment & Plan (07/11/2021 12:15 PM INSIDE WIREMAN): Patient presents with pitting RLE edema that [...] left foot transmetatarsal amputation. Assessment & Plan (02/14/2025 10:24 AM CDT): Transmetatarsal amputation of the left foot, chronic, present for years, recent ulceration with secondary infection is improved, nearly resolved. The stump is clean with minimal skin discontinuity and no evidence of secondary infection. Small abrasion with dried blood on the left mid su. - Keep followups with wound care. - Follow up in three months or sooner if needed. Assessment & Plan (12/22/2024 6:22 PM CDT): Images from the original note were not included. See [facility]bridge HPI/AP. Assessment & Plan (12/07/2024 5:44 PM CDT): Images from the original note were not included. See [facility] HPI/AP. Assessment & Plan (11/07/2024 10:39 PM CDT): Images from the original note were not included. See [facility] HPI/AP. Assessment & Plan (11/16/2023 1:43 PM CDT): Chronic, stable. The foot exam is actually improved with healing of a chronic ulceration. He had a contact cast on for awhile. He will keep his follow ups with podiatry. Assessment & Plan (05/12/2023 2:26 PM INSIDE WIREMAN): He is seeing a operations supervisor in [place]. He recently had nail debridement. He wore [...] follows up with the Wound Center in [place] once a week. His changes the bandages every day at home. They will keep their follow ups in the Wound Center. Tinea unguium 10/21/2020 Overview (04/23/2022): [facility], details lacking. Secondary hyperparathyroidism 11/19/2019 Overview (03/03/2023): Diagnosis entered at [facility]. Assessment & Plan (11/16/2023 1:46 PM CDT): Chronic, controlled. This is monitored in endocrinology and by Nephrology, Dr. Wellington. Assessment & Plan (04/26/2023 12:31 PM INSIDE WIREMAN): This is monitored by his hydro operator, Dr. Lauren. 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 His operations supervisor applied a contact cast. The left foot medial TMA stump still exhibits some chronic lichenified and fissured skin thickening, but no ulceration. Pulses are not detected in the feet, but clinical perfusion is normal. We will see him back in six months. Assessment & Plan (04/26/2023 12:31 PM INSIDE WIREMAN): The small diabetic foot ulcer on the left foot medial distal transmetatarsal amputation is healing well under the care of his operations supervisor. Assessment & Plan (01/22/2022 2:42 PM CDT): Wound center note, [facility], 10/19/2021. Assessment & Plan (11/11/2021 8:14 AM CDT): The wound on his left foot amputation stump is described elsewhere. It appears to be stable or improving with care at the Wound Center in [place]. Assessment & Plan (10/06/2020 12:14 PM CDT): The left foot TMA stump is bandaged, just changed yesterday. We did not remove it at this time. There is a little staining of the bandage on the inferior/plantar surface. He will keep his follow ups with the Wound Center. Assessment & Plan (04/07/2020 12:06 PM INSIDE WIREMAN): As mentioned elsewhere, the ulcerations on the [...] (05/02/2024): Nuclear stress test on 08/15/2022 at [facility]: Normal myocardial perfusion study. No scintigraphic evidence of myocardial ischemia. Normal left ventricular ejection fraction of 66 % poststress. Normal wall motion. Assessment & Plan (05/02/2024 12:16 PM INSIDE WIREMAN): Chronic, present for five or more years, [...] same. Assessment & Plan (04/11/2021 12:04 PM INSIDE WIREMAN): He denies having chest pain or pressure. Continue medical therapy including aspirin. Assessment & Plan (10/06/2020 12:15 PM CDT): He denies having chest pain. He takes aspirin and pravastatin. Continue same. Assessment & Plan (04/07/2020 12:05 PM INSIDE WIREMAN): Yesterday he had an episode of chest [...] same. Assessment & Plan (04/03/2019 12:19 PM INSIDE WIREMAN): He is on a good secondary prophylaxis [...] same. Assessment & Plan (04/14/2018 4:19 PM INSIDE WIREMAN): He says his supervisor fishing apparently . His other specialists are assisting with management of fairly stable coronary disease. He is on a reasonably good medical regimen at this time. There was consideration of doing another stress test but it does not sound like it has been done yet. Much of his care is at [facility] in [place], so that presents challenges in getting records [...] retinopathy, proliferative, followed by Dr. Peace and Dr. Cary Mcgovern. Exam 10/14/2024: Assessment & Plan (10/17/2021 12:30 PM CDT): Ophthalmology office note, 09/21/2021, Dr. Mitul Gilliam. Regressed proliferative retinopathy. Peripheral vascular disease 11/03/2015 Overview (09/20/2017): Atherosclerosis of [place] artery of left lower extremity with ulceration of midfoot Assessment & Plan (05/02/2024 12:17 PM INSIDE WIREMAN): Chronic, present for about 10 years, currently [...] had some sort of procedure with his operations supervisor, Dr. Thurman. Exam shows a 2 cm necrotic linear ulcer with no surrounding erythema or active purulent discharge. They are keeping it covered with a nonstick gauze. They have a follow-up with podiatry in December. Assessment & Plan (04/24/2022 11:47 AM INSIDE WIREMAN): He has good dorsal pedal pulses and feet seem pretty well perfused. Other peripheral pulses are normal. Assessment & Plan (10/21/2021 2:24 PM CDT): He has good dorsal pedal pulses bilaterally. I cannot detect the posterior tibial pulses, but both feet are well perfused. Other peripheral pulses are normal. Assessment & Plan (04/11/2021 12:05 PM INSIDE WIREMAN): He has palpable pulses in the dorsal [...] ago. Assessment & Plan (04/07/2020 12:06 PM INSIDE WIREMAN): He has no palpable pulses in the [...] therapy. Assessment & Plan (04/12/2019 11:23 AM INSIDE WIREMAN): He actually has good pulses in all [...] months. Assessment & Plan (03/28/2018 11:04 AM INSIDE WIREMAN): In the past he has had some atherosclerosis leading to ulceration and infection and eventually transmetatarsal amputation of the left foot. However, today the pulses are all intact. He does get regular follow-up at [facility] in [place]. They are trying to heal up a [...] neuropathy Assessment & Plan (07/20/2017 12:37 PM INSIDE WIREMAN): He has stocking distribution sensory loss to [...] stage 3, GFR 30-59 ml/min 04/20/2008 Overview (02/23/2025): Images from the original note were not included. Seeing Dr. Hermann Wellington. Assessment & Plan (10/30/2024 9:16 PM CDT): See Barbara HPI/AP. Assessment & Plan (05/02/2024 12:13 PM INSIDE WIREMAN): Chronic, stable at this time. He sees a kidney specialist at [facility] on the same day that he sees his relocation specialist. Labs are checked in that setting. Clinical exam is stable. Return here in six months. Assessment & Plan (12/04/2023 4:37 PM CDT): Chronic, stable. He gets labs from Dr. Lauren in November and I asked the patient and his to make sure we get copies. Assessment & Plan (04/26/2023 12:30 PM INSIDE WIREMAN): Labs have been stable. We will get the most recent labs from his hydro operator, Dr. Lauren. Assessment & Plan (11/07/2022 9:21 [...] (08/28/2022 4:12 PM CDT): Recent admission to [facility] for LAILA post paxlovid for COVID and dehydration. Creatinine improved greatly with IVF. Had normalized upon discharge last week. No acute findings on exam, no elimination issues reported. Continue current regimen. Assessment & Plan (04/24/2022 11:45 AM INSIDE WIREMAN): He had labs at his hydro operator office last week, Dr. Lauren. The results are not available yet. They will be scanned to his chart and communicated to the patient when available. Assessment & Plan (10/21/2021 2:19 PM CDT): The most recent labs from his hydro operator office showed a very slight increase in BUN and creatinine compared to his baseline. He was encouraged to increase fluid intake. He will keep his follow ups in endocrinology and we will also monitor labs when we receive them. Assessment & Plan (04/11/2021 12:03 PM INSIDE WIREMAN): He is followed by Nephrology. Labs have been relatively stable. He will bring copies of his next set (usually done in endocrinology, Dr. Lauren). Assessment & Plan (10/06/2020 12:16 PM CDT): He sees Dr. Wellington for his kidney issues and blood pressure control. Continue same. Assessment & Plan (04/07/2020 12:02 PM INSIDE WIREMAN): He had labs recently at his hydro operator's office, Dr. Lauren. Creatinine was 1.29 which is stable or slightly improved. He will continue to follow-up in Endocrinology and return here in six months. Assessment & Plan (10/12/2019 2:08 PM CDT): He has a new activity aide at [facility], Dr. Cooper, who requested that labs [...] days by the wound care center at [facility] which may have temporarily caused an increase in creatinine, a false elevation. Hopefully we we will seen improvement back to his baseline with the current set of labs. Assessment & Plan (04/03/2019 12:20 PM INSIDE WIREMAN): His activity aide, Dr. Wellington, retired so he has a [...] monitor Assessment & Plan (03/28/2018 11:03 AM INSIDE WIREMAN): He has mild stable chronic kidney disease [...] (08/25/2016): Type 2 diabetes Assessment & Plan (12/18/2024 10:46 AM CDT): See [facility] HPI/AP. Assessment & Plan (12/03/2024 1:39 PM CDT): See [facility] HPI/AP. Assessment & Plan (10/30/2024 9:17 PM CDT): See [facility] HPI/AP. Assessment & Plan (05/08/2024 8:38 PM INSIDE WIREMAN): Chronic, uncontrolled because he ran out of glimepiride. He missed his follow-up with endocrinology at [facility] and they declined to refill the [...] November. Assessment & Plan (04/26/2023 12:32 PM INSIDE WIREMAN): Diabetes is managed at his hydro operator, Dr. Lauren. He does have several complications [...] encouraged. Assessment & Plan (05/11/2022 8:54 AM INSIDE WIREMAN): He takes glimepiride and his gives him sliding scale Humalog, 1 unit per 10 carbs. He just saw his hydro operator, Dr. Lauren, last week. Generally, diabetes seems reasonably well controlled. Assessment & Plan (10/21/2021 2:25 PM CDT): Blood sugars at home are in the low 100 mg/dL range. HbA1c in his hydro operator office recently was 8.3%. Continue current therapy. Assessment & Plan (06/21/2021 3:24 PM INSIDE WIREMAN): Scanned diabetic eye exam, positive findings, Dr. Hermann Sauceda, [facility]. Assessment & Plan (04/11/2021 12:05 PM INSIDE WIREMAN): He is followed by Dr. Lauren. Generally [...] months. Assessment & Plan (04/07/2020 12:06 PM INSIDE WIREMAN): His recent hemoglobin A1c in Endocrinology was [...] months. Assessment & Plan (04/03/2019 12:22 PM INSIDE WIREMAN): Blood sugars are in a good range, typically in the low 100 mg%. Continue current oral hypoglycemics. We will get labs from his hydro operator for review. Assessment & Plan (09/26/2018 12:24 PM CDT): He is on sliding scale short-acting insulin to control blood sugars which generally run around 100 mg/dL. His thinks the last hemoglobin A1c was about 6.6. We will request labs from Dr. Lauren. Follow-up here in six months. Assessment & Plan (03/28/2018 11:05 AM INSIDE WIREMAN): He sees Dr. Lauren for regular diabetic [...] months. Assessment & Plan (07/20/2017 12:38 PM INSIDE WIREMAN): He sees Dr. Lauren for diabetes management. [...] 06/21/2003 Overview (08/25/2016): Hypertension Assessment & Plan (02/14/2025 10:26 AM CDT): Hypertension, chronic, present for decades, systolic not at goal. Mild borderline elevation of systolic blood pressure. - Continue lisinopril 7.5 mg daily (combined dose of 2.5 mg and 5 mg tablets). - Check on home blood pressure readings in a few weeks. - Follow up in three months or sooner if needed. Assessment & Plan (12/18/2024 10:25 AM CDT): See [facility] HPI/AP. Assessment & Plan (10/30/2024 9:16 PM CDT): See [facility] HPI/AP. Assessment & Plan (05/02/2024 12:15 PM INSIDE WIREMAN): Chronic, present for more than 20 years, [...] same. Assessment & Plan (04/26/2023 12:31 PM INSIDE WIREMAN): Blood pressure is in a good range [...] encouraged. Assessment & Plan (04/24/2022 11:46 AM INSIDE WIREMAN): Blood pressure is in a good range on current therapy. Continue same, and follow- up in six months. Assessment & Plan (10/21/2021 2:23 PM CDT): Blood pressure is in a good range on current nonpharmacologic therapy. He denies having chest pain or pressure. Assessment & Plan (04/11/2021 12:04 PM INSIDE WIREMAN): Systolic blood pressure is somewhat borderline but acceptable. Continue current therapy. Assessment & Plan (10/06/2020 12:16 PM CDT): Blood pressure is in a reasonable range. He is not currently on any medical therapy. Continue same, and follow-up in six months. Assessment & Plan (04/07/2020 12:04 PM INSIDE WIREMAN): Blood pressure is in a good range on nonpharmacologic therapy. Continue to monitor. Assessment & Plan (10/02/2019 12:00 PM CDT): He has had issues with hypertension in the past, but is not currently taking anything for blood pressure. Blood pressure in the office is in a good range. Continue to monitor. Assessment & Plan (04/03/2019 12:20 PM INSIDE WIREMAN): Blood pressure is in a good range [...] Hyperlipidemia associated with type 2 diabetes johnny nam 06/21/2003 Overview (08/25/2016): Hyperlipidemia Assessment & Plan (10/30/2024 9:16 PM CDT): See [facility] HPI/AP. Assessment & Plan (05/02/2024 12:14 PM INSIDE WIREMAN): Chronic, present for more than 20 years, controlled on pravastatin 40 mg daily. Labs from his hydro operator including LDL are scanned into his chart. Continue same. Assessment & Plan (12/04/2023 4:38 PM CDT): Chronic, controlled on pravastatin 40 mg daily. He gets periodic labs in his hydro operator office which I independently review and interpret. These are scanned to his chart. Continue same. Assessment & Plan (04/26/2023 12:30 PM INSIDE WIREMAN): He takes pravastatin, tolerating well. Continue same. Assessment & Plan (10/23/2022 12:53 PM CDT): He is tolerating pravastatin. Labs are monitored by Dr. Lauren and scanned into his chart for review. Assessment & Plan (04/24/2022 11:46 AM INSIDE WIREMAN): He is on generic Pravachol, tolerating well. Continue same. Assessment & Plan (10/21/2021 2:22 PM CDT): He is on generic Pravachol, tolerating well. He gets labs checked at least once a year in his hydro operator office. These are scanned to his chart. Assessment & Plan (10/17/2020 9:03 AM CDT): Continue pravastatin. He gets his labs checked by Dr. Lauren in endocrinology. We will request the most recent results. Assessment & Plan (04/07/2020 12:04 PM INSIDE WIREMAN): His most recent cholesterol profile looks reasonably favorable on his current Pravachol. Continue same. Assessment & Plan (10/12/2019 2:10 PM CDT): He remains on pravastatin, tolerating well. The lipid panel in Dr. Lauren's office about two months ago shows fairly good control. Continue same. Assessment & Plan (04/03/2019 12:20 PM INSIDE WIREMAN): He is on pravastatin, tolerating well. He had labs done in Endocrinology and Nephrology. We will request those results for review. Continue current therapy. Assessment & Plan (03/28/2018 11:03 AM INSIDE WIREMAN): He is on pravastatin and tolerating it [...] ankle or foot 11/15/2020 04/23/2022 Overview (04/23/2022): [facility], details lacking. Diabetic ulcer of right foot associated with type 2 diabetes mellitus, with fat layer exposed 06/21/2019 10/21/2021 Overview (10/21/2021): Right foot ulcers have healed but he has erosions of the left foot being cared for at the [facility] in [place]. Assessment & Plan (04/16/2020 11:57 AM INSIDE WIREMAN): The ulcerations on his right foot have [...] monofilament. He is getting wound care at [facility] in [place]. He was on antibiotics for about 10 [...] see office notes and wound care notes ([facility]). Closed fracture of multiple ribs of left side with routine healing 12/26/2016 03/23/2017 Acute cholecystitis 05/22/2016 03/23/20 17 Overview (08/25/2016): Acute cholecystitis Encounters Date Type Department Care Team Description 03/16/2025 Telephone [facility] [address] [place] [address] Brent King MD 03/07/2025 Telephone [facility] [address] [place] [id number] Brent King MD BP Readings 02/23/2025 Results Follow-Up [facility] [address] [place] [phone] Brent King MD SCAN - LABS 02/05/2025 2:00 PM CDT Office Visit [facility] [address] [place] [address] Brent King MD Amputation stump complication (HCC) (Primary Dx); Diabetic ulcer of other part of right foot associated with type 2 diabetes mellitus, with fat layer exposed; Type 2 diabetes mellitus with diabetic peripheral angiopathy without gangrene, with long-term current use of insulin (HCC); Nevus of cheek; Hypertension associated with type 2 diabetes mellitus (HCC); Adult hypothyroidism 02/04/2025 Orders Only [facility] Health Information Management [address] [place], [place] [id number] Scanning, Provider 01/29/2025 8:50 AM CDT Lab [facility] [address] [place] [phone] Type 2 diabetes mellitus with diabetic peripheral angiopathy without gangrene, with long-term current use of insulin (HCC) from Last 3 Months Immunizations Immunization Administration [...] foot surgeries /amputation of toes & hallux DIABETES EYE EXAM 08/31/2017 Janeen [place]/Dr. Sauceda. 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 CATARACT EXTRACTION 05/21/2009 - 05/20/2010 Left Complicated by central opacity and vision loss, details lacking. ANKLE SURGERY 06/11/2018 Left Tendon clipped in back of calf/ankle to improve position of toe, Dr. Ward, [facility]. DIABETES EYE EXAM 04/02/[address] Sauceda, see scanned report. DIABETES EYE EXAM 09/22/2020 Bilateral Bialteral proliferative diabetic retinopathy without macular edema, Dr. Sauceda, [facility]. DIABETES EYE EXAM 03/23/2021 Scanned diabetic eye exam, positive findings, Dr. Hermann Sauceda, [facility]. DIABETES EYE EXAM 09/21/2021 Ophthalmology office note, Dr. Sauceda. Regressed proliferative retinopathy. DIABETES EYE EXAM 11/07/2023 Bilateral Stable proliferative diabetic retinopathy, involutional mature cataract, OS. Dr. Peace, [facility]. Medical History Medical History Date Comments Diabetes mellitus Diabetes melli tus; Comments: GDS 05/31/2016 - Hypercholesterolemia High choles terol; Comments: GDS 05/31/2016 - Hypertension Hypertension Type 2 diabetes mellitus 2005 Diabete s type 2; Comments: ECS 06/21/2016 - Acute cholecystitis 05/22/2016 Acute cholec ystitis Closed fracture of multiple ribs of left side with routine healing 12/26/2016 Diabetic neuropathy (HCC) Chronic kidney disease Diabetic eye exam ([facility]) 08/31/2017 See Scan [facility] Report, Janeen [place]/Dr. Sauceda. Chicken pox 1948 Personal history of diabetic foot ulcer 04/05/20 19 Both feet, see office notes and wound care notes ([facility] Diabetic ulcer of right foot associated with type 2 diabetes mellitus, with fat layer exposed ([facility]) 06/21/2019 Right foot ulcers have heale d but he has erosions of the left foot being cared for at the [facility] in [place]. Acute osteomyelitis of ankle or foot ([facility]) 11/15/2020 [facility], detail s lacking. Covid-19 08/07/2022 [...] often do you attend chur ch or catholic services? Never 08/16/2022 Do you belong to any clubs o r organizations such as worship groups, unions, fraternal or athletic groups, or [...] points, staff should administer the PHQ-9) 0 02/05/2025 PRAPARE - Transportation Answer Date Re corded [...] on file Legal Sex Male 11:17 AM INSIDE WIREMAN Gender Identity Not on file Sexual Orientation Not on file Last Filed Vital Signs Vital Sign Reading Time Taken Comments Blood Pressure 140/62 02/05/2025 1:48 PM CDT Pulse 87 02/05/2025 1:48 PM CDT Temperature 37.1 C (98.7 F) 02/05/2025 1:48 PM CDT Respiratory Rate 16 02/05/2025 1:48 PM CDT Oxygen Saturation 97% 02/05/2025 1:48 PM CDT Inhaled Oxygen Concentration - - Weight 79.8 kg (176 lb) 02/05/2025 1:48 PM CDT Height 157.5 cm (5' 2.01) 02/05/2025 1:48 PM CD T Body Mass Index 32.18 02/05/2025 1:48 PM CDT Plan of Treatment Health Maintenance Due Date Last Done Comments Hepatitis B Screening 1958 Lipid Panel 09/08/2021 09/08/2020 Dilated Eye Exam 11/06/2024 11/07/2023, 08/2021, 03/23/2021, Additional history exists Covid-19 Vaccine (2024-06 6 season) 2025 02/08/2024, 06/29/2023, 04/05/2022, Additional history exists Influenza Vaccine (#1) 2025 , 03/20/2022, 02/11/2021, Additional history exists Fall Risk Assessment 05/02/2025 05/02/2024, 04/26/2023, 08/17/2022, Additional history exists Foot Exam 05/02/2025 05/02/2024, 120 11/2022, 04/24/2022, Additional history exists Well Visit 65+ 05/02/2025 05/02/2024, 120 11/2022, 04/24/2022, Additional history exists Hemoglobin A1C 07/29/2025 01/29/2025, 08/2 06/2023, 05/28/2023, Additional history exists eGFR 10/31/2025 10/31/2024, 03, 08/16/2022, Additional history exists Albumin Creatinine Ratio, Urine 02/02/2026 02/02/2025, 11/17/2022, 10/02/2019 Depression Screening 02/05/2026 02/05/2025, 12/18/2024, 05/02/2024, Additional history exists DTaP/Tdap/Td Vaccine (2 - Td or Tdap) 09/20/2026 09/20/2016 Abdominal Aortic Aneurysm (A AA) Screen Completed 01/21/2017, 05/22/2016 Pneumococcal vaccine 65+ Completed 020, 04/26/2015, 05/10/2011 Zoster Vaccine Completed 07/16/2020, 04/20, 05/21/2014 Procedures Procedure Name Priority Date/Time Associated Diagnosis Comments SCAN - LABS 02/03/2025 2:19 PM CDT HM URINE MICROALBUMNIN Routine 7:15 PM CDT HEMOGLOBIN A1C Routine 01/29/2025 8:48 AM CDT Type 2 diabetes mellitus with diabetic peripheral angiopathy without gangrene, with long-term current use of insulin (HCC) EGFR Routine 10/31/2024 1:38 PM CDT Hypertension associated with type 2 diabetes mellitus (HCC) HM DIABETES EYE EXAM Routine 11/07/2023 HM ALBUMIN CREATININE RATIO, URINE Routine 11/17/2022 12:00 PM CDT LIPID PANEL Routine 09/08/2020 12:[address] ABDOMEN PELVIS W CONTRAST Routine 01/21/2017 7:48 PM CDT from Last 3 Months or Most Recently Relevant to Health Maintenance Results * SCAN - LABS (02/03/2025 2:19 PM CDT) us Provider Scanning Edited Result - Final * (ABNORMAL) HM URINE MICROALBUMNIN (02/02/2025 7:15 PM CDT) SCRIBED Micro ACR, Urine 139(A) 1 - 29 mg/g Impressions Brent King MD - 02/02/2025 7:15 PM CDT Abnormal Narrative Brent King MD - 02/02/2025 7:15 PM CDT See scanned report Abel Lauren MD HEALTH MAINTENANCE Final Result * (ABNORMAL) Hemoglobin A1c (01/29/2025 8:48 AM CDT) Hgb A1C 7.6(H) 4.0 - 5.6 % Comment:Testing performed by : [facility], [address] [place] [address], [place]., [address] Estimated Average Glucose 171 mg/dL JALEN DE Comment: The ADA recommends reporting an estimated Average Glucose (eAG) with all Hemoglobin A1c results using the equation derived from a study of 507 normal and diabetic adults. Minority populations were underrepresented and children were not included. (Diabetes Care 31:7141-4226, 2008). The eAG is not equivalent to a fasting glucose. Testing performed by: [facility], [address] [place] [address]., [address] Blood 01/29/2025 8:48 AM CDT 01/29/2025 1:59 PM CDT us Brent King MD LAB BLOOD ORDERABLES Final Re sult MICALEYLA KENISHA [address] [facility] Department [place] [address] * (ABNORMAL) eGFR (10/31/2024 1:38 PM CDT) [...] of Race in Diagnosing Kidney Disease, JASN 202). The CKD-EPI equation should not be used for patients with unstable renal function and has not been validated in children and those over 70. Current interpretive data was last reviewed 2021. Testing performed by: [facility], [address] [place] [address], [place]., [address] Blood 10/31/2024 1:38 PM CDT 10/31/2024 8:43 PM CDT us Brent King MD LAB [place]LOOD [place] [address] [address] [facility] Department [place] [address] * HM DIABETES EYE EXAM (11/07/2023) SCRIBED [...] Abel Lauren MD HEALTH MAINTENANCE Final Result Performing Organization Address [facility]/ZIP Co de Phone Number EXTERNAL LAB * Lipid panel (09/08/2020 12:00 [...] & Endocrinology (see scanned report) us Jacinda Provider LAB BLOOD ORDERABLES Bettye l Result EXTERNAL LAB * CT Abdomen Pelvis W Contrast (01/21/2017 7:48 PM CDT) Anatomical Region Laterality Modality Body N/A Computed Tomogra phy 01/21/2017 7:48 PM CDT Narrative 01/21/2017 7:[address] ABD/PEL W IV ONLY Acc#: [id number] DATE OF EXAM: Jan [address] [...] normal. The lung bases are clear. HNHIMPRESSION: N1.[id number] CHOLECYSTECTOMY. 2.P93PQVT BILATERAL ADRENAL FULLNESS WITH NO EVIDENCE OF DISCRETE NODULE, LESS PROMINENT THAN ON THE COMPARISON STUDY. 3.[id number] CALCIFICATION. 4.X09NO EVIDENCE OF ACUTE INTRA-ABDOMINAL PROCESS. Electronically signed by: Clovis Fowler M.D. Interpreting Physician: DR KADE GONZALEZ M.D. Read on: Jan 21 2017 3:04P Transcribed by: [facility] On: Jan 21 2017 3:02P Approved Electronically by: LISA Carlson, DR BRAUN on: Jan 21 2017 3:02P Ordering DR: MILAGROS PATEL Attending DR: DR HARI LE Attending: DR HARI LE Requesting: MILAGROS PATEL Requesting Fax: -- Attending Fax: -- Attending ID: [id number] Requesting ID: [id number] Report To 1 ID: [id number] Report To 1 Name: DR HARI LE Report To 1 FAX: -- NextGen Order #: Procedure Note Miscellaneous, Not In File / Provider, MD Jacinda - 01/21/2017 CT ABD/PEL W IV ONLY Acc#: [id number] DATE OF EXAM: Jan [address] [...] normal. The lung bases are clear. HNHIMPRESSION: N1.[id number] CHOLECYSTECTOMY. 2.Z91FYMY BILATERAL ADRENAL FULLNESS WITH NO EVIDENCE OF DISCRETE NODULE, LESS PROMINENT THAN ON THE COMPARISON STUDY. 3.R49QUCDCOSK CALCIFICATION. 4.X09NO EVIDENCE OF ACUTE INTRA-ABDOMINAL PROCESS. Electronically signed by: Clovis Fowler M.D. Interpreting Physician: DR AKDE GONZALEZ M.D. Read on: Jan 21 2017 3:04P Transcribed by: [facility] On: Jan 21 2017 3:02P Approved Electronically by: LISA Carlson, DR BRAUN on: Jan 21 2017 3:02P Ordering DR: MILAGROS PATEL Attending DR: DR HARI LE Attending: DR HARI LE Requesting: MILAGROS PATEL Requesting Fax: -- Attending Fax: -- Attending ID: [id number] Requesting ID: [id number] Report To 1 ID: [id number] Report To 1 Name: DR HARI LE Report To 1 FAX: -- NextGen Order #: Milagros TUBBS IMG CT PROCEDURES Final Result from Last 3 Months or Most Recently Relevant to Health Maintenance Insurance [facility] MEDICARE ADVANTAGE MEDICARE ADVANTAGE MEDICARE ADVANTAGE [place] [id number] MEDICARE ADVANTAGE Care Teams Memorial Counselor Relationship Specialty Start Date End Date Brent King MD [address] [place] [address] PCP - General Infectious Diseases 07/20/17 Abel Lauren MD [address] [place] [address] Consulting Physician Endocrinology Diabetes & Metabolism 01/20/17 Raj Regalado MD [address] [place] [address] Consulting Physician Vascular Surgery 04/07/17 Libertad Neal MD [address] [facility] [address] [place] [address] Consulting Physician Nephrology 10/03/19 Hermann Sauceda MD [address] [facility] [address] [place] [address] Consulting Physician Ophthalmology 04/07/20 Carlie Torres MD [address] [place] [address] [address] ANASTACIO Hummel [address] [place] [address] Referring Physician Preventative Medicine 09/29/20 Franco Melendez MD [address] [facility] [address] [place] [address] Consulting Physician Orthopedic Surgery 08/25/21 Mitul Gilliam MD [address] [place] [address] Consulting Physician Ophthalmology 10/17/21 Erik Charles MD [address] [facility] [address] [place] [address] Consulting Physician Wound Care 04/26/23
--- OUTSIDE RECORDS SUMMARY | 2025-04-22 08:06 | XMS_ITS | Encounter Summary ---
Author Organization [facility] Address [address] [place] [address] Phone Care Team Providers Care Coverstitch Binder Name Role Phone Abel Lauren MD Unavailable [phone] Hermann [place] MD Unavailable [phone] Raj Regalado MD Unavailable [phone] Franco Melendez MD Unavailable [phone] Brent King MD Primary Care Provider [phone] Libertad Neal MD Unavailable [phone] Hermann Sauceda MD Unavailable [phone] Carlie Torres MD Unavailable [phone] Franco Melendez MD Unavailable [phone] Mitul Gilliam MD Unavailable [phone] Libertad Neal MD Unavailable [phone] Erik Charles MD Unavailable [phone] Encounter Details Date Type Department Care Team (Late st Contact Info) Description 06/30/2021 Orders Only [facility] [address] [place] [address] Brent King MD [address] [place] [address] Social History Tobacco Use Types Packs/Day Years [...] on file 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 Gender Identity Not on file Sexual Orientation [...] documented as of this encounter Care Teams Coverstitch Binder Relationship Specialty Start Date End Date Brent King MD [address] [place] [address] PCP - General Infectious Diseases 07/20/17 Abel Lauren MD [facility] [place] [address] Consulting Physician Endocrinology Diabetes & Metabolism 01/20/17 Hermann [place] MD [address] [place] [address] Consulting Physician Nephrology 04/07/17 08/24/21 Raj Regalado MD [address] [place] [address] Consulting Physician Vascular Surgery 04/07/17 Franco Melendez MD [address] [place] [address] Consulting Physician Orthopedic Surgery 08/04/15 2 Libertad Neal MD [address] [facility] [address] [place] [address] Consulting Physician Nephrology 10/03/19 Hermann Sauceda MD [address] [facility] [address] [place] [address] Consulting Physician Ophthalmology 04/07/20 Carlie Torres MD [address] [place] [address] [address] [place] [address] Referring Physician Preventative Medicine 09/29/20 Franco Melendez MD [address] [facility] [address] [place] [address] Consulting Physician Orthopedic Surgery 08/25/21 Mitul Gilliam MD [address] [facility] [address] [place] [address] Consulting Physician Ophthalmology 10/17/21 Libertad Neal MD [address] [facility] [address] [place] [address] Consulting Physician Nephrology 10/21/21 10/21/21 Erik Charles MD [address] [facility] [address] [place] [address] Consulting Physician Wound Care 04/26/23 documented as of this encounter
--- OUTSIDE RECORDS SUMMARY | 2025-04-22 08:06 | XMS_ITS | Encounter Summary ---
Author Organization [email or web address] Address [address] [place] [address] Phone Care Team Providers Care Pre Certification Specialist Name Role Phone Brent King MD Primary Care Provider [phone] Abel Lauren MD Unavailable [phone] Hermann Wellington MD Unavailable [phone] Raj Regalado MD Unavailable [phone] Hermann Sauceda MD Primary Care Provider Franco Melendez MD Unavailable [phone] Brent King MD Primary Care Provider [phone] Libertad Neal MD Unavailable [phone] Hermann Sauceda MD Unavailable [phone] Carlie Torres MD Unavailable [phone] Franco Melendez MD Unavailable [phone] Mitul Gilliam MD Unavailable [phone] Libertad Neal MD Unavailable [phone] Erik Charles MD Unavailable [phone] Encounter Details Date Type Department Care Team (Late st Contact Info) Description 02/27/2017 Orders Only [facility] [address] [place] [address] Brent King MD [address] [place] [address] Social History Tobacco Use Types Packs/Day Years Used Date Smoking Tobacco: Former Smokeless Tobacco: Never Alcohol Use Standard Drinks/Week Comments No 0 (1 standard drink = 0.6 oz pur e alcohol) Sex and Gender Information Value Date Recorded Sex Assigned at Not on file 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 Gender Identity Not on file Sexual Orientation [...] documented as of this encounter Care Teams Pre Certification Specialist Relationship Specialty Start Date End Date Brent King MD [address] [place] [address] PCP - General 12/26/16 03/20/17 Hermann Sauceda MD [address] [place] [address] PCP - General Ophthalmology 03/21/17 07/19/17 Brent King MD [address] [place] [address] PCP - General Infectious Diseases 07/20/17 Abel Lauren MD [address] [place] [address] Consulting Physician Endocrinology Diabetes & Metabolism 01/20/17 Hermann [place] MD [address] [place] [address] Consulting Physician Nephrology 04/07/17 08/24/21 Raj Regalado MD [address] [place] [address] Consulting Physician Vascular Surgery 04/07/17 Franco Melendez MD [address] [place] [address] Consulting Physician Orthopedic Surgery 08/04/15 2 Libertad Neal MD [address] [facility] [address] [place] [address] Consulting Physician Nephrology 10/03/19 Hermann Sauceda MD [address] [place] [address] Consulting Physician Ophthalmology 04/07/20 Carlie Torres MD [address] [place] [address] [address] ANASTACIO Hummel [facility] [address] [place] [address] Referring Physician Preventative Medicine 09/29/20 Franco Melendez MD [address] [facility] [address] [place] [address] Consulting Physician Orthopedic Surgery 08/25/21 Mitul Gilliam MD [address] [facility] [address] [place] [address] Consulting Physician Ophthalmology 10/17/21 Libertad Neal MD [address] [facility] [address] [place] [address] Consulting Physician Nephrology 10/21/21 10/21/21 Erik Charles MD [address] [facility] [address] [place] [address] Consulting Physician Wound Care 04/26/23 documented as of this encounter
--- OUTSIDE RECORDS SUMMARY | 2025-04-22 08:06 | XMS_ITS | Encounter Summary ---
Author Organization [facility] Address [address] [place] [address] Phone Care Team Providers Care Brewing Technician Name Role Phone Abel Lauren MD Unavailable [phone] Raj Regalado MD Unavailable [phone] Brent King MD Primary Care Provider [phone] Libertad Neal MD Unavailable [phone] Hermann Sauceda MD Unavailable Carlie Torres MD Unavailable [phone] Franco Melendez MD Unavailable [phone] Mitul Gilliam MD Unavailable [phone] Erik Charles MD Unavailable [phone] Encounter Details Date Type Department Care Team (Late st Contact Info) Description 01/03/2022 Orders Only [facility] [address] [place] [address] Brent King MD [address] [place] [address] Social History Tobacco Use Types [...] on file 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 Gender Identity Not on file Sexual Orientation Not on file documented as of this encounter Plan of Treatment Not on file documented as of this encounter Procedures Procedure Name Priority Date/Time Associated Diagnosis Comments SCAN - LABS 01/03/2022 documented in this encounter Results * SCAN - LABS (01/03/2022) Brent King MD Final Result documented in this encounter Visit Diagnoses Not on filedocumented in this encounter Additional Health Concerns Infection Onset Date Last Indicated Resolved Time COVID: Suspected 08/14/2022 08/14/2022 08/14/2022 8:58 PM CDT COVID19 08/14/2022 08/14/2022 08/17/2022 2:13 PM CDT COVID: Recovered 08/17/2022 08/17/2022 11/15/2022 3:05 AM CDT documented as of this encounter Care Teams Brewing Technician Relationship Specialty Start Date End Date Brent King MD [address] [place] [address] PCP - General Infectious Diseases 07/20/17 Abel Lauren MD [address] [place] [address] Consulting Physician Endocrinology Diabetes & Metabolism 01/20/17 Raj Regalado MD [address] [place] [address] Consulting Physician Vascular Surgery 04/07/17 Libertad Neal MD [address] [facility] [address] [place] [address] Consulting Physician Nephrology 10/03/19 Hermann Sauceda MD [address] [facility] [address] [place] [address] Consulting Physician Ophthalmology 04/07/20 Carlie Torres MD [address] [place] [address] [address] [place] [address] Referring Physician Preventative Medicine 09/29/20 Franco Melendez MD [address] [facility] [address] [place] [address] Consulting Physician Orthopedic Surgery 08/25/21 Mitul Gilliam MD [address] [facility] [address] [place] [address] Consulting Physician Ophthalmology 10/17/21 Erik Charles MD [address] [facility] [address] [place] [address] Consulting Physician Wound Care 04/26/23 documented as of this encounter
--- OUTSIDE RECORDS SUMMARY | 2025-04-22 08:06 | XMS_ITS | Encounter Summary ---
Author Organization [facility] Address [address] [place] [address] Phone Care Team Providers Care Evidence Technician Name Role Phone Abel Lauren MD Unavailable [phone] Raj Regalado MD Unavailable [phone] Brent King MD Primary Care Provider [phone] Libertad Neal MD Unavailable [phone] Hermann Sauecda MD Unavailable Carlie Torres MD Unavailable [phone] Franco Melendez MD Unavailable [phone] Mitul Gilliam MD Unavailable [phone] Erik Charles MD Unavailable [phone] Encounter Details Date Type Department Care Team (Late st Contact Info) Description 11/17/2022 Orders Only [facility] [address] [place] [address] Scanning, Provider Social History Tobacco [...] often do you attend chur ch or episcopalian services? 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 Gender Identity Not on file Sexual Orientation [...] on filedocumented in this encounter Care Teams Evidence Technician Relationship Specialty Start Date End Date Brent iKng MD [address] [place] [address] PCP - General Infectious Diseases 07/20/17 Abel Lauren MD [address] [place] [address] Consulting Physician Endocrinology Diabetes & Metabolism 01/20/17 Raj Regalado MD [address] [place], [place] [address] Consulting Physician Vascular Surgery 04/07/17 Libertad Neal MD [address] [facility] [address], [place] [address] Consulting Physician Nephrology 10/03/19 Hermann Sauceda MD [address] [facility] [address], [place] [address] Consulting Physician Ophthalmology 04/07/20 Carlie Torres MD [address] [place] [address] [address] ANAST[address]IO Hummel [facility] [address] [place] [address] Referring Physician Preventative Medicine 09/29/20 Franco Melendez MD [address] [facility] [address] [place], [place] [address] Consulting Physician Orthopedic Surgery 08/25/21 Mitul Gilliam MD [address] [place] [address] Consulting Physician Ophthalmology 10/17/21 Erik Charles MD [address] [facility] [address] [place] [address] Consulting Physician Wound Care 04/26/23 documented as of this encounter
--- OUTSIDE RECORDS SUMMARY | 2025-04-22 08:06 | XMS_ITS | Encounter Summary ---
Author Organization [facility] Healthcare Address [address] [place] [address] Care Team Providers Care Oss Architect Name Role Phone Abel Lauren MD Unavailable [phone] Raj Regalado MD Unavailable [phone] Brent King MD Primary Care Provider [phone] Libertad Neal MD Unavailable [phone] Hermann Sauceda MD Unavailable [phone] Carlie Torres MD Unavailable [phone] Franco Melendez MD Unavailable [phone] Mitul Gilliam MD Unavailable [phone] Erik Charles MD Unavailable [phone] Encounter Details Date Type Department Care Team (Late st Contact Info) Description 02/23/2025 Results Follow-Up [facility] Medical Group [facility] [address] [place] [address] Brent King MD [address] [place] [address] SCAN - LABS Social History Tobacco Use Types Packs/Day Years [...] often do you attend chur ch or jew services? 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 Gender Identity Not on file Sexual Orientation Not on file documented as of this encounter Plan of Treatment Not on file documented as of this encounter Procedures Procedure Name Priority Date/Time Associated Diagnosis Comments HM URINE MICROALBUMNIN Routine 7:15 PM CDT documented in this encounter Results * (ABNORMAL) HM URINE MICROALBUMNIN (02/02/2025 7:15 PM CDT) SCRIBED Micro ACR, Urine 139(A) 1 - 29 mg/g Impressions Brent King MD - 02/02/2025 7:15 PM CDT Abnormal Narrative Brent King MD - 02/02/2025 7:15 PM CDT See scanned report Abel Lauren MD HEALTH MAINTENANCE Final Result documented in this encounter Visit Diagnoses Not on filedocumented in this encounter Care Teams Oss Architect Relationship Specialty Start Date End Date Brent King MD [address] [place] [address] PCP - General Infectious Diseases 07/20/17 Abel Lauren MD [address] [place], [place] [address] Consulting Physician Endocrinology Diabetes & Metabolism 01/20/17 Raj Regalado MD [address] [place], [place] [address] Consulting Physician Vascular Surgery 04/07/17 Libertad Neal MD [address] [facility] [address], [place] [address] Consulting Physician Nephrology 10/03/19 Hermann Sauceda MD [address] [facility] [address], [place] [address] Consulting Physician Ophthalmology 04/07/20 Carlie Torres MD [address] [place] [address] [address] [place] [address] Referring Physician Preventative Medicine 09/29/20 Franco Melendez MD [address] [facility] [address] [place] [address] Consulting Physician Orthopedic Surgery 08/25/21 Mitul Gilliam MD [address] [facility] [address] [place] [address] Consulting Physician Ophthalmology 10/17/21 Erik Charles MD [address] [facility] [address] [place] [address] Consulting Physician Wound Care 04/26/23 documented as of this encounter
--- OUTSIDE RECORDS SUMMARY | 2025-04-22 08:06 | XMS_ITS | Encounter Summary ---
Author Organization [facility] Address [address] [place] [address] Phone Care Team Providers Care Stock Blender Name Role Phone Abel Lauren MD Unavailable [phone] Hermann Wellington MD Unavailable [phone] Raj Regalado MD Unavailable [phone] Hermann Sauceda MD Primary Care Provider Franco Melendez MD Unavailable [phone] Brent King MD Primary Care Provider [phone] Libertad Neal MD Unavailable [phone] Hermann Sauceda MD Unavailable [phone] Carlie Torres MD Unavailable [phone] Franco Melendez MD Unavailable [phone] Mitul Gilliam MD Unavailable [phone] Libertad Neal MD Unavailable [phone] Erik Charles MD Unavailable [phone] Encounter Details Date Type Department Care Team (Late st Contact Info) Description 04/04/2017 Orders Only [facility] [address] [place] [address] Brent King MD [address] [place] [id number] Social History Tobacco Use Types Packs/Day Years Used Date Smoking Tobacco: Former Smokeless Tobacco: Never Alcohol Use Standard Drinks/Week Comments No 0 (1 standard drink = 0.6 oz pur e alcohol) Sex and Gender Information Value Date Recorded Sex Assigned at Not on file Legal Sex Male 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 Gender Identity Not on file Sexual Orientation Not on file documented as of this encounter Plan of Treatment Not on file documented as of this encounter Procedures Procedure Name Priority Date/Time Associated Diagnosis Comments SCAN - LABS 04/04/2017 2:37 PM CONSTRUCTION IRONWORKER HELPER documented in this encounter Results * SCAN - LABS (04/04/2017 2:37 PM CONSTRUCTION IRONWORKER HELPER) Brent King MD Final Result documented in this encounter Visit Diagnoses Not on filedocumented in this encounter Additional Health Concerns Infection Onset Date Last Indicated Resolved Time COVID: Suspected 08/14/2022 08/14/2022 08/14/2022 8:58 PM CDT COVID19 08/14/2022 08/14/2022 08/17/2022 2:13 PM CDT COVID: Recovered 08/17/2022 08/17/2022 11/15/2022 3:05 AM CDT documented as of this encounter Care Teams Stock Blender Relationship Specialty Start Date End Date Hermann Sauceda MD [address] [place] [address] PCP - General Ophthalmology 03/21/17 07/19/17 Brent King MD [address] [place] [id number] PCP - General Infectious Diseases 07/20/17 Abel Lauern MD [address] [place] [address] Consulting Physician Endocrinology Diabetes & Metabolism 01/20/17 Hermann Wellington MD [address] [place] [address] Consulting Physician Nephrology 04/07/17 08/24/21 Raj Regalado MD [address] [place] [address] Consulting Physician Vascular Surgery 04/07/17 Franco Melendez MD [address] [place] [address] Consulting Physician Orthopedic Surgery 08/04/15 Libertad Neal MD [address] [facility] [address] [place] [address] Consulting Physician Nephrology 10/03/19 Hermann Sauceda MD [address] [place] [address] Consulting Physician Ophthalmology 04/07/20 Carlie Torres MD [address] [place] [address] [address] [place] [address] Referring Physician Preventative Medicine 09/29/20 Franco Melendez MD [address] [facility] [address] [place] [address] Consulting Physician Orthopedic Surgery 08/25/21 Mitul Gilliam MD [address] [facility] [address] [place] [address] Consulting Physician Ophthalmology 10/17/21 Libertad Neal MD [address] [facility] [address] [place] [address] Consulting Physician Nephrology 10/21/21 10/21/21 Erik Charles MD [address] [facility] [address] [place] [address] Consulting Physician Wound Care 04/26/23 documented as of this encounter
--- OUTSIDE RECORDS SUMMARY | 2025-04-22 08:06 | XMS_ITS | Encounter Summary ---
Author Organization [facility] Address [address] [place] [address] Phone Care Team Providers Care Mangle Operator Garments Name Role Phone Brent King MD Primary Care Provider [phone] Brent King MD Primary Care Provider [phone] Abel Lauren MD Unavailable [phone] Hermann Wellington MD Unavailable [phone] Raj Regalado MD Unavailable [phone] Hermann Sauceda MD Primary Care Provider Franco Melendez MD Unavailable [phone] Brent King MD Primary Care Provider [phone] Libertad Neal MD Unavailable [phone] Hermann Sauceda MD Unavailable [phone] Carlie Torres MD Unavailable [phone] Franco Melendez MD Unavailable [phone] Mitul Gilliam MD Unavailable [phone] Libertad Neal MD Unavailable [phone] Erik Charles MD Unavailable [phone] Encounter Details Date Type Department Care Team (Late st Contact Info) Description 12/21/2016 Orders Only [facility] [address] [place] [address] Brent King MD [address] [place] [address] Type 2 diabetes mellitus with foot ulcer, unspecified vermin exterminator insulin use status (Primary Dx) Social History Tobacco Use Types Packs/Day Years Used Date Smoking Tobacco: Former Cigarettes Q uit: 05/21/1958 Alcohol Use Standard Drinks/Week Comments No 0 (1 standard drink = 0.6 oz pur e alcohol) Sex and Gender Information Value Date Recorded Sex Assigned at Not on file Legal Sex Male 11:17 AM MANAGER LINE Gender Identity Not on file Sexual Orientation Not on file documented as of this encounter Plan of Treatment Not on file documented as of this encounter Visit Diagnoses Diagnosis Type 2 diabetes mellitus with foot ulcer, unspecified long-term insulin use status- Primary documented in this encounter Additional Health Concerns Infection Onset Date Last Indicated Resolved Time COVID: Suspected 08/14/2022 08/14/2022 08/14/2022 8:58 PM CDT COVID19 08/14/2022 08/14/2022 08/17/2022 2:13 PM CDT COVID: Recovered 08/17/2022 08/17/2022 11/15/2022 3:05 AM CDT documented as of this encounter Care Teams Mangle Operator Garments Relationship Specialty Start Date End Date Brent King MD [address] [place] [address] PCP - General 08/18/16 12/25/16 Brent King MD [address] [place] [address] PCP - General 12/26/16 03/20/17 Hermann Sauceda MD [address] [place] [address] PCP - General Ophthalmology 03/21/17 07/19/17 Brent King MD [address] [address] PCP - General Infectious Diseases 07/20/17 Abel Lauren MD [address] [place] [address] Consulting Physician Endocrinology Diabetes & Metabolism 01/20/17 Hermann Wellington MD [address] [place] [address] Consulting Physician Nephrology 04/07/17 08/24/21 Raj Regalado MD [address] [place] [address] Consulting Physician Vascular Surgery 04/07/17 Franco Melendez MD [address] [place] [address] Consulting Physician Orthopedic Surgery 08/04/15 2 Libertad Neal MD [address] [place] [address] Consulting Physician Nephrology 10/03/19 Hermann Sauceda MD [address] [place] [address] Consulting Physician Ophthalmology 04/07/20 Carlie Torres MD [address] [place] [address] [address] [address] Referring Physician Preventative Medicine 09/29/20 Franco Melendez MD [address] [facility] [address] [place] [address] Consulting Physician Orthopedic Surgery 08/25/21 Mitul Gilliam MD [address] [facility] [address] [place] [address] Consulting Physician Ophthalmology 10/17/21 Libertad Neal MD [address] [facility] [address] [place] [address] Consulting Physician Nephrology 10/21/21 10/21/21 Erik Charles MD [address] [facility] [address] [place] [address] Consulting Physician Wound Care 04/26/23 documented as of this encounter
--- OUTSIDE RECORDS SUMMARY | 2025-04-22 08:06 | XMS_ITS | Encounter Summary ---
Author Organization [facility] Address [address] [place] [address] Phone Care Team Providers Care Tool Keeper Name Role Phone Abel Lauren MD Unavailable [phone] Hermann Wellington MD Unavailable [phone] Raj Regalado MD Unavailable [phone] Hermann Sauceda MD Primary Care Provider Franco Melendez MD Unavailable [phone] Brent King MD Primary Care Provider [phone] Libertad Neal MD Unavailable [phone] Hermann Sauceda MD Unavailable [phone] Carlie Torres MD Unavailable [phone] Franco Melendez MD Unavailable [phone] Mitul Gilliam MD Unavailable [phone] Libertad Neal MD Unavailable [phone] Erik Charles MD Unavailable [phone] Encounter Details Date Type Department Care Team (Late st Contact Info) Description 04/04/2017 Orders Only [facility] [address] 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 Gender Identity Not on file Sexual [...] documented as of this encounter Care Teams Tool Keeper Relationship Specialty Start Date End Date Hermann Sauceda MD [address] [place] [address] PCP - General Ophthalmology 03/21/17 07/19/17 Brent King MD [address] [place] [address] PCP - General Infectious Diseases 07/20/17 Abel Lauren MD [address] [place] [address] Consulting Physician Endocrinology Diabetes & Metabolism 01/20/17 Hermann Wellington MD [address] [place] [address] Consulting Physician Nephrology 04/07/17 08/24/21 Raj Regalado MD [address] [place] [address] Consulting Physician Vascular Surgery 04/07/17 Franco Melendez MD [address] [place] [address] Consulting Physician Orthopedic Surgery 08/04/15 2 Libertad Neal MD [address] [facility] [address] [place] [address] Consulting Physician Nephrology 10/03/19 Hermann Sauceda MD [address] [place] [address] Consulting Physician Ophthalmology 04/07/20 Carlie Torres MD [address] [place] [address] [address] [facility] 10 [place] [address] Referring Physician Preventative Medicine 09/29/20 Franco Melendez MD [address] [facility] [address] [place] [address] Consulting Physician Orthopedic Surgery 08/25/21 Mitul Gilliam MD [address] [facility] [address] [place] [address] Consulting Physician Ophthalmology 10/17/21 Libertad Neal MD [address] [facility] [address] [place] [address] Consulting Physician Nephrology 10/21/21 10/21/21 Erik Charles MD [address] [facility] [address] [place] [address] Consulting Physician Wound Care 04/26/23 documented as of this encounter
--- OUTSIDE RECORDS SUMMARY | 2025-04-22 08:06 | XMS_ITS | Encounter Summary ---
Author Organization [place] [facility] Address [address] [place] [address] Phone Care Team Providers Care Baker Test Name Role Phone Brent King MD Primary Care Provider [phone] Abel Lauren MD Unavailable [phone] Hermann Wellington MD Unavailable [phone] Raj Regalado MD Unavailable [phone] Hermann Sauceda MD Primary Care Provider Franco Melendez MD Unavailable [phone] Brent King MD Primary Care Provider [phone] Libertad Neal MD Unavailable [phone] Hermann Sauceda MD Unavailable [phone] Carlie Torres MD Unavailable [phone] Franco Melendez MD Unavailable [phone] Mitul Gilliam MD Unavailable [phone] Libertad Neal MD Unavailable [phone] Erik Charles MD Unavailable [phone] Encounter Details Date Type Department Care Team (Late st Contact Info) Description 02/28/2017 Orders Only [facility] [address] [place] [address] Brent King MD [address] [place] [address] Diabetic retinopathy without macular edema associated with [...] on file Legal Sex Male 11:17 AM SENIOR SVP Gender Identity Not on file Sexual Orientation [...] documented as of this encounter Care Teams Baker Test Relationship Specialty Start Date End Date Brent King MD [address] [place] [address] PCP - General 12/26/16 03/20/17 Hermann Sauceda MD [address] [place] [address] PCP - General Ophthalmology 03/21/17 07/19/17 Brent King MD [address] [place] [address] PCP - General Infectious Diseases 07/20/17 Abel Lauren MD [address] [facility] [place] [address] Consulting Physician Endocrinology Diabetes & Metabolism 01/20/17 Hermann Wellington MD [address] [place] [address] Consulting Physician Nephrology 04/07/17 08/24/21 Raj Regalado MD [address] [place] [address] Consulting Physician Vascular Surgery 04/07/17 Franco Melendez MD [address] [place] [address] Consulting Physician Orthopedic Surgery 08/04/15 2 Libertad Neal MD [address] [place] [address] Consulting Physician Nephrology 10/03/19 Hermann Sauceda MD [address] [place] [address] Consulting Physician Ophthalmology 04/07/20 Carlie Torres MD [address] [place] [address] [address] [facility] 10 [place] [address] Referring Physician Preventative Medicine 09/29/20 Franco Melendez MD [address] [facility] [address] [place] [address] Consulting Physician Orthopedic Surgery 08/25/21 Mitul Gilliam MD [address] [facility] [address] [place] [address] Consulting Physician Ophthalmology 10/17/21 Libertad Neal MD [address] [facility] [address] [place], [place] [address] Consulting Physician Nephrology 10/21/21 10/21/21 Erik Charles MD [address] [facility] [address] [place] [address] Consulting Physician Wound Care 04/26/23 documented as of this encounter
[2025-04-22 08:09] LABS: Site Drawn RIGHT RADIAL
[2025-04-22 08:10] LABS: Modified Allen's Test Pass
[2025-04-22 08:13] LABS: Alanine Aminotransferase 22 U/L (6-50); Albumin Level 2.7 g/dL (3.5-5.1); Alkaline Phosphatase 108 U/L (38-126); Anion Gap 3 mmol/L (4-12); Aspartate Amino Transferase 31 U/L (17-59); Bilirubin,Total 0.2 mg/dL (0.2-1.3); Blood Urea Nitrogen 33 mg/dL (9-20); Calcium 8.3 mg/dL (8.4-10.2); Carbon Dioxide 25 mmol/L (22-30); Chloride 114 mmol/L (98-107); Estimated Glomerular Filt Rate 40; Glucose 157 mg/dL (65-110); Potassium 3.4 mmol/L (3.4-5.0); Sodium 142 mmol/L (137-145); Total Protein 6.7 g/dL (6.3-8.2)
[2025-04-22 08:13] LABS: Arterial Blood Gas Tidal Volume 450 ml; Arterial Blood Gas Ventilator rate 18 /MIN
--- NOTE | 2025-04-22 08:22 | ED.AMS ---
HPI - Altered Mental Status General Chief Complaint: Altered Mental Status Stated Complaint: unresponsive Time Seen by Provider: 04/22/25 07:56 History of Present Illness HPI narrative: patient reportedly just had amputation at [facility], this morning [place] [facility] found him unresponsive, they called EMS, who found his blood sugar to be in the 40s, given glucagon, noticed that he was not breathing, seemed to have gurgling respirations, then became apneic while they try to bag him; they did intubate, repeat blood sugar improved. Related Data Allergies Allergy/AdvReac Type Severity Reaction Status Date / Time linezolid (From Zyvox) Allergy Unknown Unknown Verified 04/22/25 07:29 nirmatrelvir (From Paxlovid) Allergy Unknown Unknown Verified 04/22/25 07:29 ritonavir (From Paxlovid) Allergy Unknown Unknown Verified 04/22/25 07:29 Review of Systems Review of Systems: ROS unobtainable: Yes unobtainable due to endotracheal tube Exam Narrative: EXAMINATION OF ORGAN SYSTEMS/BODY AREAS: Constitutional: Vital signs per nursing GENERAL: obtunded with response to noxious stimulus HEAD: Normal with no signs of head trauma. EYES: pupils responsive ENT: bloody/ dark saliva LUNGS: coarse lung sounds with bagging HEART: tachycardic ABD: Soft EXT: right foot with fresh incision sites SKIN: Mottled skin, redness around the right foot with fresh incision sites NEURO: response to noxious stimulus. Course Vital Signs Vital signs: Vital Signs Pulse Rate 117 H 04/22/25 07:27 Pulse Oximetry 95 04/22/25 07:27 Oxygen Delivery Mechanical Ventilation 04/22/25 07:27 Fraction of Inspired Oxygen 100 04/22/25 07:27 Temperature 94.9 F L 04/22/25 09:21 Pulse Rate 109 H 04/22/25 09:21 Respiratory Rate 22 H 04/22/25 09:21 Blood Pressure 146/84 H 04/22/25 09:21 Pulse Oximetry 98 04/22/25 09:21 Oxygen Delivery Mechanical Ventilation 04/22/25 08:21 Fraction of Inspired Oxygen 100 04/22/25 07:27 Procedures Arterial Line Arterial line #1: Date of Arterial Line: 04/22/25 Time of Arterial Line: 09:41 Arterial Line Location: radial and left Perfomed Emergently - Given emergent patient conditions, temporal constraints may have precluded informed consent: Yes Size (Gauge): 20 Technique Used: guide wire technique Post-Procedure: line sutured into place Patient Tolerated Procedure: well and no complications Complications: none Laryngoscopy Laryngoscopy #1: Laryngoscopy Date: 04/22/25 Laryngoscopy Time: 07:30 Technique: video laryngoscope Laryngoscopy Comment: Confirmed ETT placement due to difficulty oxygenating; in good position MDM MDM Narrative Medical decision making narrative: patient reportedly just had amputation at [facility], this morning [place] [facility] found him unresponsive, they called EMS, who found his blood sugar to be in the 40s, given glucagon, noticed that he wasn't breathing, seem to have gurgling respirations, then became apneic while they try to bag him; they did intubate. He was hypoxic, hypotensive here, immediately placed on monitors, IVF on pressure bag, ETT verified, septic protocol initiated, levophed ordered. Slight delay in levophed so I did give push dose 0.1mg epi to get MAPs>60. D/w ICU here who recommends transfer to his original facility. D/w [facility] ER who recommends ICU direct admission. Dr. Infante ICU accepts. they advised CT brain. This is ordered. Given difficulty obtaining blood pressure, arterial line placed. Differential Diagnosis Differential Diagnosis: septic shock, infected wound, aspiration, CVA, etc Lab Data 04/22/25 07:55 04/22/25 07:55 Labs: Lab Results 04/22/25 04/22/25 04/22/25 Range/Units 07:29 07:55 07:58 WBC 12.0 H (4.5-10.0) K/mm3 RBC 3.55 L (4.6-6.20) M/mm3 Hgb 9.9 L (14.0-18.0) g/dL Hct 32.8 L (42.0-52.0) % MCV 92.4 (80-100) fl MCH 27.9 (26-34) pg MCHC 30.2 L (32-36) g/dl RDW 15.0 H (11.5-14.5) % Plt Count 372 (150-375) k/mm3 MPV 9.7 (7.4-10.4) fl Immature Gran % (Auto) 0.8 H (0-0.5) % Neut % (Auto) 73.1 (45.5-73.1) % Lymph % (Auto) 23.4 (18.3-44.2) % Nolan % (Auto) 2.1 L (2.6-8.5) % Eos % (Auto) 0.4 (0-4.4) % Baso % (Auto) 0.2 (0.2-1.2) % Lymph # (Auto) 2.80 (0.9-3.2) K/mm3 Nolan # (Auto) 0.3 (0.1-0.6) K/mm3 Eos # (Auto) 0.1 (0-0.3) K/mm3 Baso # (Auto) 0.0 (0.0-0.1) K/mm3 Abs Immat Gran (auto) 0.10 H (0.00-0.031) K/mm3 Absolute Neuts (auto) 8.8 H (1.3-6.7) K/mm3 Absolute Nucleated RBC 0.020 H (0.0-0.012) K/mm3 Nucleated RBC % 0.2 (0.0-0.2) % APTT 29.5 (22.3-36.8) Seconds Methemoglobin 0.1 (0-1.5) %THb Minute Volume Not Reportable Vent Mode Cmv Tidal Volume 450 ml PEEP 8 cmH2O Peak Inspir Pressure Not Reportable Pressure Support Not Reportable Sodium 142 (137-145) mmol/L Potassium 3.4 (3.4-5.0) mmol/L Chloride 114 H (98-107) mmol/L Carbon Dioxide 25 (22-30) mmol/L Anion Gap 3 L (4-12) mmol/L BUN 33 H (9-20) mg/dL Creatinine 1.64 H (0.7-1.3) mg/dL Estim Creat Clear Calc Not Reportable Estimated GFR 40 L (59 - ) Glucose 157 H (65-110) mg/dL POC Capillary Glucose 129 H (65-105) mg/dl Lactic Acid 3.0 H (0.7-2.0) mmol/L Calcium 8.3 L (8.4-10.2) mg/dL Total Bilirubin 0.2 (0.2-1.3) mg/dL AST 31 (17-59) U/L ALT 22 (6-50) U/L Alkaline Phosphatase 108 (38-126) U/L Total Protein 6.7 (6.3-8.2) g/dL Albumin 2.7 L (3.5-5.1) g/dL Urine Color (Yellow) Urine Appearance (Clear) Urine pH (5.0-9.0) Ur Specific Dundee (1.001-1.035) Urine Protein (Negative) mg/dL Urine Glucose (UA) (Negative) mg/dL Urine Ketones (Negative) mg/dL Ur Blood (Man) (Negative) Urine Nitrate (Negative) Urine Bilirubin (Negative) Urine Urobilinogen (<2.0) mg/dL Leukocyte Esterase Rfl (Negative) HAZEL/UL Urine RBC (0-2) /hpf Urine WBC (0-3) /hpf Ur Squamous Epith Cells (Few) /hpf Urine Bacteria /hpf Urine Casts 04/22/25 Range/Units 08:15 WBC (4.5-10.0) K/mm3 RBC (4.6-6.20) M/mm3 Hgb (14.0-18.0) g/dL Hct (42.0-52.0) % MCV (80-100) fl MCH (26-34) pg MCHC (32-36) g/dl RDW (11.5-14.5) % Plt Count (150-375) k/mm3 MPV (7.4-10.4) fl Immature Gran % (Auto) (0-0.5) % Neut % (Auto) (45.5-73.1) % Lymph % (Auto) (18.3-44.2) % Nolan % (Auto) (2.6-8.5) % Eos % (Auto) (0-4.4) % Baso % (Auto) (0.2-1.2) % Lymph # (Auto) (0.9-3.2) K/mm3 Nolan # (Auto) (0.1-0.6) K/mm3 Eos # (Auto) (0-0.3) K/mm3 Baso # (Auto) (0.0-0.1) K/mm3 Abs Immat Gran (auto) (0.00-0.031) K/mm3 Absolute Neuts (auto) (1.3-6.7) K/mm3 Absolute Nucleated RBC (0.0-0.012) K/mm3 Nucleated RBC % (0.0-0.2) % APTT (22.3-36.8) Seconds Methemoglobin (0-1.5) %THb Minute Volume Vent Mode Tidal Volume ml PEEP cmH2O Peak Inspir Pressure Pressure Support Sodium (137-145) mmol/L Potassium (3.4-5.0) mmol/L Chloride (98-107) mmol/L Carbon Dioxide (22-30) mmol/L Anion Gap (4-12) mmol/L BUN (9-20) mg/dL Creatinine (0.7-1.3) mg/dL Estim Creat Clear Calc Estimated GFR (59 - ) Glucose (65-110) mg/dL POC Capillary Glucose (65-105) mg/dl Lactic Acid (0.7-2.0) mmol/L Calcium (8.4-10.2) mg/dL Total Bilirubin (0.2-1.3) mg/dL AST (17-59) U/L ALT (6-50) U/L Alkaline Phosphatase (38-126) U/L Total Protein (6.3-8.2) g/dL Albumin (3.5-5.1) g/dL Urine Color Yellow (Yellow) Urine Appearance Clear (Clear) Urine pH 6.0 (5.0-9.0) Ur Specific Dundee 1.011 (1.001-1.035) Urine Protein 1+ H (Negative) mg/dL Urine Glucose (UA) Negative (Negative) mg/dL Urine Ketones Negative (Negative) mg/dL Ur Blood (Man) Negative (Negative) Urine Nitrate Negative (Negative) Urine Bilirubin Negative (Negative) Urine Urobilinogen 1.0 (<2.0) mg/dL Leukocyte Esterase Rfl Negative (Negative) HAZEL/UL Urine RBC 3-5 H (0-2) /hpf Urine WBC 0-5 (0-3) /hpf Ur Squamous Epith Cells None seen (Few) /hpf Urine Bacteria None seen /hpf Urine Casts 0-2 ABG Data ABG results: 04/22/25 07:58 Puncture Site Right radial ABG pH 7.368 ABG pCO2 38.9 ABG pO2 110.2 H ABG PO2/FiO2 Ratio 1.10 ABG HCO3 21.9 L ABG O2 Saturation 97.9 ABG O2 Content 15.8 L ABG Base Excess -3.1 A-a Gradient 563.9 Oxyhemoglobin 97.7 Carboxyhemoglobin 0.5 Reduced Hemoglobin 1.7 Total Hemoglobin 11.4 L O2 Delivery Device Ventilator O2 Liters/Min Not Reportable Vent Rate 18 FiO2 100 Imaging Data Radiologist's impression: ITS Impressions Chest X-Ray 04/22/25 08:09 Impression: 1. Support apparatus as above. There is a piece of tubing terminating in the proximal right bronchus, correlate clinically, repositioning recommended Discharge Plan Discharge Clinical Impression: Altered mental status, Hypoglycemia, Septic shock, Hypoxic Patient Disposition: Acute Care Hospital Condition: Critical Patient Language: Citizen Of [place] Follow-up/Referrals: Christine,Brent Rosado MD [Primary Care Provider, Unknown]
[2025-04-22] MEDS: FENTANYL 2,500MCG/NS250ML(*CRX 2,500 MCG/250 ML BAG IV CONT (08:24)
--- NOTE | 2025-04-22 08:25 | PCRCNOTE ---
pt came in with EMS. Intubated in the field. Placed patient on vent. Sp02 69. Took pt off and bagged 100% and PEEP valve 10. Once sp02 came up to 90's placed on vent. CMV 18/450/100%/ +8. ABG drawn and wean Fi02 to 80%. ETT 7.5, 25 at lip.
[2025-04-22 08:35] LABS: Add Urine Microscopic? YES; Appearance Urine Clear (Clear); Glucose Urine UA Negative (Negative); Leukocyte Esterase Ur Negative LEU/UL (Negative); Nitrate Urine Negative (Negative); Non Pathogenic Casts 0-2; Specific Grav Ur 1.011 (1.001-1.035)
[2025-04-22 08:36] LABS: Partial Thromboplastin Time 29.5 Seconds (22.3-36.8)
[2025-04-22] MEDS: LACTATED RINGERS 1,000 ML 999 ML IV CONT (08:46)
[2025-04-22] MEDS: PANTOPRAZOLE SODIUM IV 40 MG VIAL IV PUSH (09:04)
[2025-04-22] MEDS: PIPERACILLIN/TAZOBACTAM SOD 3.375 GM in SODIUM CHLORIDE 0.9% IV 50 ML 100 ML IVPB (09:04)
[2025-04-22] MEDS: Please enter patient height and weight for medication dosing XX (09:06)
--- NOTE | 2025-04-22 09:14 | PC.NURSE ---
art line placed per ERP Devine in left radial wrist.
[2025-04-22] MEDS: VANCOMYCIN 2,000 MG/NS 500 ML 2,000 MG/500 ML BAG 250 MG IVPB (10:25)
--- NOTE | 2025-04-22 10:45 | PC.NURSE ---
ALS Transfer to [facility] 0935 Air [facility] declined for weather 0938 [facility] declined for weather 1005 [facility] declined 1007 [facility] declined [facility] accepted with RN required for transfer - Cancelled at [phone] [facility] accepted Transfer ETA 30min no RN required
--- NOTE | 2025-04-22 10:45 | PC.NURSE ---
incidental removal of art line, sutures remained in placed.
[2025-04-22 11:22] LABS: MRSA (PCR) NOT DETECTED (NOT DETECTE)
[2025-04-22 11:33] LABS: Troponin I 0.032 ng/mL (0.000-0.034)
== END 2025-04-22 12:30 | disposition short-term general hospital (02) ==
PROVIDERS: Emergency Provider Emergency Medicine; PCP Internal Medicine Infectious Disease
DX: T81.44XA Sepsis following a procedure, initial encounter (principal); A41.9 Sepsis, unspecified organism; T81.12XA Postprocedural septic shock, initial encounter; R09.02 Hypoxemia; E16.2 Hypoglycemia, unspecified; R00.0 Tachycardia, unspecified; I49.1 Atrial premature depolarization; R94.31 Abnormal electrocardiogram [ECG] [EKG]; Y83.5 Amputation of limb(s) as the cause of abnormal reaction of the patient, or of later complication, without mention of misadventure at the time of the procedure
CPT/HCPCS: 31525; 36415; 36600; 70450; 80053; 81001; 82375; 82805; 82948; 83050; 83605; 84484; 85018; 85025; 85730; 87040; 87641; 93005; 96365; 96366; 96367; 96368; 96375; 99285; J0168; J2470; J2543; J3010; J3373; J7030; J7120